=== PATIENT | female | born 1955 | race Caucasian/White ===

== ENCOUNTER → 2019-12-14 12:35 | Outpatient (CLI) | payer BC, MEDICARE, SELFPAY ==
--- NOTE | ~2019-12-14 | XR_ITS ---
EXAMINATION: HAND-DEVAUGHN ARTHRITIS 3+VIEWS DATE: 12/14/2019 13:33 INDICATION: Osteoarthritis with bilateral hand pain. TECHNIQUE: Posteroanterior, lateral, and oblique views of the left and of the right hands as well as a ballcatchers view of both hands were obtained. COMPARISON: 05/20/2018 FINDINGS: Alignment is normal at both hands. No fracture. Polyarticular osteoarthritis, moderate severity at th e right first carpometacarpal and bilateral first interphalangeal joints and mild at the left first c arpal metacarpal and multiple probably distal interphalangeal joints.. IMPRESSION: 1. Relatively symmetric polyarticular osteoarthritis of both hands, moderate at the left first carpo metacarpal and bilateral first interphalangeal joints and otherwise mild. Reviewed, dictated and finalized at location A. ESSION ATTENDANT IMPRESSION: 1. Relatively symmetric polyarticular osteoarthritis of both hands, moderate a t the left first carpometacarpal and bilateral first interphalangeal joints and otherwise mild.
--- NOTE | ~2019-12-14 | XR_ITS ---
EXAMINATION: XR foot RT standing 2V, XR foot LT standing 2V DATE: 12/14/2019 13:33 INDICATION: Osteoarthritis with nontraumatic joint pain of the bilateral feet. TECHNIQUE: 1. Standing dorsal plantar and lateral views of the left foot were obtained. 2. Standing dorsal plantar and lateral views of the right foot were obtained. COMPARISON: Left ankle MRI dated 08/03/2018 FINDINGS: Normal alignment at the right foot. Normal hindfoot alignment at the left foot with mild metatarsus a dductus and eversion of the forefoot. No fracture. Mild osteoarthritis at the left second-fourth tars al metatarsal joints. Additional minimal to mild osteoarthritis of the bilateral first metatarsophala ngeal and several interphalangeal joints. No cortical erosions. Moderate-sized bilateral Achilles and plantar calcaneal enthesophytes. Soft tissues are unremarkable with no ankle joint effusions. IMPRESSION: 1. 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 2. Additional minimal to mild osteoarthritis at the first metatarsophalangeal and several interphalan geal joints in both feet. Reviewed, dictated and finalized at location A. EDGE BANDER IMPRESSION: 1. 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 2. Additional minimal to mild osteoarthritis at the first metatarsophalangeal a nd several interphalangeal joints in both feet.
== END ==
PROVIDERS: PCP Internal Medicine; Visit Provider Internal Medicine
DX: M19.041 Primary osteoarthritis, right hand (principal); M19.042 Primary osteoarthritis, left hand; M19.071 Primary osteoarthritis, right ankle and foot; M19.072 Primary osteoarthritis, left ankle and foot
CPT/HCPCS: 73130; 73620

== ENCOUNTER → 2019-12-15 12:44 | Outpatient (CLI) | payer BC, MEDICARE, SELFPAY ==
--- NOTE | ~2019-12-15 | XR_ITS ---
EXAMINATION: XR sacroiliac joints min 3V DATE: 12/15/2019 13:08 INDICATION: Unspecified osteoarthritis, unspecified site. TECHNIQUE: 3 views of the sacroiliac joints were obtained. COMPARISON: Pelvis radiograph 12/02/2018 FINDINGS: Bone alignment is normal. No fracture. There is mild osteoarthritis of the hip joints and s acroiliac joints. There is severe degenerative disc disease at L5-S1. IMPRESSION: 1. Mild osteoarthritis of the hip joints and sacroiliac joints. No evidence of inflammatory arthropat hy. Reviewed, dictated and finalized at location A. ER PROCESS HAND IMPRESSION: 1. Mild osteoarthritis of the hip joints and sacroiliac joints. No evidence of inflammatory arthropathy.
== END ==
PROVIDERS: PCP Internal Medicine; Visit Provider Internal Medicine
DX: M16.0 Bilateral primary osteoarthritis of hip (principal)
CPT/HCPCS: 72202

== ENCOUNTER 2020-03-27 08:37 | Outpatient (CLI) | payer BC, MEDICARE, SELFPAY ==
--- NOTE | ~2020-03-27 | MM_ITS ---
EXAMINATION: MM screening faustina BI w ashvin HISTORY: Screening TECHNIQUE: Craniocaudal and mediolateral oblique 3-D tomosynthesis images were obtained and synthetic 2-D images were generated. CAD analysis was submitted and interpreted. COMPARISON: No prior mammogram is available for comparison at this institution. BREAST PARENCHYMAL COMPOSITION: There are scattered areas of fibroglandular density. FINDINGS: There are benign breast calcifications. There is no evidence of suspicious mass, calcificat ion, or architectural distortion to suggest malignancy in either breast. There has been no suspicious interval change. IMPRESSION: 1. No mammographic evidence of malignancy. 2. Recommend routine screening mammography in one year. BI-RADS Category 2: Benign finding(s). Reviewed, dictated and finalized at location A.
--- NOTE | ~2020-03-27 | DEXA_ITS ---
Bone Density Report Name: Autumn Rodriguez Age: 64 Sex: Female Ethnicity: White Date of : 1955 Indication: postmenopausal; height loss; hysterectomy; Referring Provider: WAYNE, MASON Davidson Study: Bone densitometry was performed. Exam Date: March 27, 2020 Accession number: [id number] Bone Density: Region BMD T-score Z-score Classification AP Spine (L1, L2, L3) 1.074 0.5 2.0 Normal Femoral Neck (Left) 0.749 -0.9 0.5 Normal Total Hip (Left) 1.001 0.5 1.6 Normal Total Hip Bilateral Avg 0.960 0.2 1.2 Normal Femoral Neck (Right) 0.742 -1.0 0.4 Normal Total Hip (Right) 0.917 -0.2 0.9 Normal World Health Organization criteria for BMD impression classify patients as: Normal (T-score at or above -1.0), Osteopenia (T-score between -1.0 and -2.5), or Osteoporosis (T-score at or below -2.5). Clinical Information Provided by Patient: Smokes Has the following medical conditions: Hysterectomy Patient maximum height was 64 Menopause Age: 52 No regular weight bearing exercise Drinks caffeinated beverages Onset of menses at age 17 Number of children 3 Impression: The patient has normal bone mass. The patient has risk factors, including: smoking. Discussion: BONE DENSITY IS ABOVE THE MINIMUM DESIRABLE LEVEL AT ALL SKELETAL SITES TESTED. This patient?s bone mineral density is above the minimum desirable level (T-score -1.0 or better) at all sites measured. The patient should follow a healthful lifestyle (good nutrition with adequate calcium and vitamin D, and appropriate weight-bearing exercise). Follow-Up: Consider repeating this study in 5 years or sooner if there is some new clinical indication. Reported by: RIYA on 03/27/2020 9:17:00 AM. Reviewed, dictated and finalized at location [facility]ina [facility]ENTER[facility]to[facility]
== END 2020-03-27 08:38 | disposition home or self-care (01) ==
LOC: ANHIMG 08:41
PROVIDERS: PCP Internal Medicine; Visit Provider Internal Medicine
DX: Z12.31 Encounter for screening mammogram for malignant neoplasm of breast (principal); Z13.820 Encounter for screening for osteoporosis; Z78.0 Asymptomatic menopausal state
CPT/HCPCS: 77063; 77067; 77080

== ENCOUNTER 2020-03-29 17:12 | Outpatient (CLI) | payer BC, MEDICARE, SELFPAY ==
--- NOTE | ~2020-03-29 | MR_ITS ---
EXAMINATION: MR cervical spine wo con DATE: 03/29/2020 18:16 INDICATION: Myelopathy. TECHNIQUE: Magnetic resonance imaging (MRI) of the cervical spine was performed without intravenous c ontrast. Sequences included sagittal T2-weighted FSE, sagittal STIR FSE, sagittal T1-weighted FSE, ax ial MERGE, and axial T2-weighted FSE. COMPARISON: Cervical spine MRI 03/31/2017 FINDINGS: Bone alignment is normal. Vertebral body heights are normal. There are changes of anterior fusion procedure from C5 to C7 with healed interbody bone graft and anterior plate and screws. There are changes of posterior fusion procedure at C6-C7 with lateral mass screws. Vertebral body heights a re normal. There is mildly decreased disc height at C4-C5. The spinal cord signal intensity is normal . The following disc levels are specifically discussed: C2-C3: The disc does not extend beyond the endplate margin. There is no uncovertebral joint osteoarth ritis. There is mild right and severe left facet joint osteoarthritis. There is mild left neural fora eugenie stenosis. There is no central canal stenosis. C3-C4: The disc is mildly bulging. There is mild bilateral uncovertebral joint osteoarthritis. There is severe bilateral facet joint osteoarthritis. There is mild left neural foraminal stenosis. There i s no central canal stenosis. C4-C5: The disc is bulging. There is mild bilateral uncovertebral joint osteoarthritis. There is katerina re bilateral facet joint osteoarthritis. There is mild left neural foraminal stenosis. There is mild central canal stenosis. C5-C6: There is no uncovertebral joint hypertrophy. There is no facet joint hypertrophy. There is no neural foraminal stenosis. There is no central canal stenosis. C6-C7: There is no uncovertebral joint hypertrophy. There is no facet joint hypertrophy. There is no neural foraminal stenosis. There is no central canal stenosis. C7-T1: The disc does not extend beyond the endplate margin. There is no uncovertebral joint osteoarth ritis. There is severe right facet joint osteoarthritis. There is no neural foraminal stenosis. There is no central canal stenosis. IMPRESSION: 1. Mild cervical spondylosis, stable from 03/31/2017. 2. Anterior fusion procedure from C5 to C7. Posterior fusion procedure at C6-7 C7. Reviewed, dictated and finalized at location A.
== END 2020-03-29 17:13 | disposition home or self-care (01) ==
LOC: ANHIMG 17:13
PROVIDERS: PCP Internal Medicine; Visit Provider Psychiatry & Neurology Neurology
DX: G95.9 Disease of spinal cord, unspecified (principal); Z98.1 Arthrodesis status; M47.892 Other spondylosis, cervical region
CPT/HCPCS: 72141

== ENCOUNTER 2021-07-31 13:07 | Outpatient (CLI) | payer MEDICARE, SELFPAY ==
--- NOTE | ~2021-07-31 | MR_ITS ---
EXAMINATION: MR hand LT wo/w con, MR hand RT wo/w con DATE: 07/31/2021 16:56 INDICATION: Rheumatoid arthritis with out rheumatoid factor presenting with chronic bilateral hand pa in TECHNIQUE: 1. Magnetic resonance imaging (MRI) of the left hand was performed without and with 20 mL Multihance intravenous contrast. Sequences included axial, sagittal and coronal T1-weighted FSE and T2-weighted FS FSE, axial T1-weighted FS FSE and postcontrast axial and coronal T1-weighted FS FSE . 2. MRI of the right hand was performed without and with 15 mL Multihance intravenous contrast. Sequen ronal included axial, sagittal and coronal T1-weighted FSE and T2-weighted FS FSE, axial T1-weighted FS FSE and postcontrast axial and coronal T1-weighted FS FSE . COMPARISON: None FINDINGS: Left hand: Bone alignment is normal. No fracture. Moderate osteoarthritis at the first carpometacarpal joint wit h T2 hyperintense but nonenhancing subarticular cyst at the trapezium. Additional moderate osteoarthr itis at the first interphalangeal joint with prominent marginal osteophytes at the dorsal head of the first proximal phalanx. There is enhancing erosion arising at the ulnar side of the head of the firs t metacarpal. Otherwise normal marrow signal throughout the remainder of the left hand. No joint effu sions. Mild enhancing synovitis at the triscaphe and first carpal metacarpal joints.. The collateral ligament complex at the metacarpophalangeal and interphalangeal joints appear normal. The flexor and extensor tendons of the hand appear normal. Postoperative change of carpal tunnel release including a sagittally oriented defect at the central aspect of the flexor retinaculum. Intrinsic musculature of the hand is normal. Right hand: Bone alignment is normal. No fracture. Moderate osteoarthritis at the right first interphalangeal cherrie nt and mild osteoarthritis at the triscaphe, first carpometacarpal joint. There are T2 hyperintense n onenhancing erosions at the ulnar side of the proximal pole of the scaphoid at the palmar aspect of t he distal pole. Additional T2 hyperintense enhancing erosions at the ulnar head of the first metacarp al at the radial side of the head of the second metacarpal and at the head of the first metacarpal. T here is mild enhancing synovitis about the triscaphe, first carpometacarpal and first interphalangeal joints. No joint effusions. The collateral ligament complexes at the metacarpophalangeal and interph alangeal joints are normal. The flexor and extensor tendons of the right hand are normal. Intrinsic m usculature of the hand is normal. IMPRESSION: 1. A few scattered small enhancing erosions at the bilateral hands which would be consistent with pro vided history of rheumatoid or other inflammatory or crystalline arthropathy. 2. Mild to moderate polyarticular osteoarthritis at the bilateral thumbs and radial aspect of the car pi. Additional mild osteoarthritis at multiple bilateral interphalangeal joints seen on prior radiogr aphs is more difficult to appreciate on MRI. Reviewed, dictated and finalized at location A. IMPRESSION: 1. A few scattered small enhancing erosions at the bilateral hands which would be consistent with provided history of rheumatoid or other inflammatory or zoe talline arthropathy. 2. Mild to moderate polyarticular osteoarthritis at the bilateral thumbs and ra dial aspect of the carpi. Additional mild osteoarthritis at multiple bilateral interphalangeal joints seen on prior radiographs is more difficult to appreciat e on MRI. IMPRESSION: 1. A few scattered small enhancing erosions at the bilateral hands which would be consistent with provided history of rheumatoid or other inflammatory or zoe jonh
[2021-07-31 13:50] LABS: Estimated Glomerular Filt Rate > 60
== END 2021-07-31 13:08 ==
PROVIDERS: PCP Internal Medicine; Visit Provider Internal Medicine
DX: M06.09 Rheumatoid arthritis without rheumatoid factor, multiple sites (principal); M19.041 Primary osteoarthritis, right hand; M19.042 Primary osteoarthritis, left hand
CPT/HCPCS: 73220; A9577

== ENCOUNTER → 2021-08-15 15:43 | Outpatient (CLI) | payer MEDICARE, SELFPAY ==
--- NOTE | ~2021-08-15 | MM_ITS ---
EXAMINATION: MM screening faustina BI w ashvin HISTORY: Screening mammogram TECHNIQUE: Craniocaudal and mediolateral oblique 3-D tomosynthesis images were obtained and synthetic 2-D images were generated. CAD analysis was submitted and interpreted. COMPARISON: 03/27/2020, 03/23/2019, 03/2018 bilateral screening mammogram examinations BREAST PARENCHYMAL COMPOSITION: There are scattered areas of fibroglandular density. FINDINGS: There is no evidence of suspicious mass, calcification, or architectural distortion to sugg est malignancy in either breast. There has been no suspicious interval change. IMPRESSION: 1. No mammographic evidence of malignancy. 2. Recommend routine screening mammography in one year. BI-RADS Category 1: Negative Reviewed, dictated and finalized at location A.
== END ==
PROVIDERS: PCP Internal Medicine; Visit Provider Internal Medicine
DX: Z12.31 Encounter for screening mammogram for malignant neoplasm of breast (principal)
CPT/HCPCS: 77063; 77067

== ENCOUNTER → 2022-01-08 12:53 | Outpatient (CLI) | payer MEDICARE, SELFPAY ==
--- NOTE | ~2022-01-08 | CT_ITS ---
EXAMINATION: CT abdomen pelvis wo con EXAM DATE: 01/08/2022 13:11 INDICATION: Left upper quadrant pain, soft tissue abdominal mass. Appendectomy, hysterectomy. Hyperte nsion. TECHNIQUE: Spiral CT of the abdomen and pelvis was performed without contrast. Axial, coronal and s agittal images of the abdomen and pelvis were reviewed. The dose-length product (DLP) for this exami nation was 991.28 mGy-cm. The exposure was tailored according to patient size (auto mA exposure cont rol), and iterative reconstruction (ASIR) was used as additional dose reduction technique. There is no prior study for comparison. FINDINGS: The liver, spleen, adrenal glands and pancreas are unremarkable. There are cholecystectomy clips. There is no nephrolithiasis or hydronephrosis. There is 4.3 cm right renal cyst. Smaller lef t renal cyst. The uterus is not identified and has likely been surgically resected. The bladder is u nremarkable. There is no retroperitoneal or pelvic lymphadenopathy. There is mild to moderate scat tered arteriosclerotic disease. The appendix is not positively visualized. There is no pericecal inflammatory change to suggest appe ndicitis. There is moderate to severe sigmoid predominant colonic diverticulosis. There is no adjace nt inflammatory change to suggest diverticulitis. The stomach and small bowel are unremarkable. The re is expected amount of colonic stool. No free intraperitoneal gas. The heart is normal in size. There are no pericardial or pleural effusions. The lung bases are unremarkable. There are no oste oblastic or osteolytic lesions identified. IMPRESSION: 1. No abdominal mass or acute intra-abdominal findings. 2. Colonic diverticulosis. Reviewed, dictated and finalized at location G.
== END ==
PROVIDERS: PCP Internal Medicine; Visit Provider Internal Medicine
DX: R19.00 Intra-abdominal and pelvic swelling, mass and lump, unspecified site (principal); K57.30 Diverticulosis of large intestine without perforation or abscess without bleeding; K76.89 Other specified diseases of liver; I70.90 Unspecified atherosclerosis
CPT/HCPCS: 74176

== ENCOUNTER 2022-05-05 10:41 | Emergency (ER) | payer MEDICARE, SELFPAY ==
[2022-05-05] VITALS (18 sets, daily range): BP systolic 118–170; BP diastolic 57–82; PULSE 78–83; RESP 16; TEMP 37; O2SAT 91–100
--- NOTE | ~2022-05-05 | CT_ITS ---
EXAMINATION: CT abdomen pelvis w con DATE: 05/05/2022 12:48 INDICATION: Left lower quadrant abdominal pain radiating across lower abdomen. Nausea. Dysuria. (History of appendectomy, cholecystectomy, bladder lift) TECHNIQUE: Computed tomography (CT) of the abdomen and pelvis was performed with 100 CC Omnipaque 300 intravenous contrast. Automated exposure control and iterative reconstruction technique were employe d. Exam dose: 1337.87 mGy-cm total exam DLP. COMPARISON: 01/08/2022 CT abdomen pelvis FINDINGS: There is mild discoid atelectasis and/or scarring at the lung bases. Borderline heart size. No pericardial or pleural effusion. Status post cholecystectomy. No bile duct or pancreatic duct dilatation. No hepatic, pancreatic or splenic space-occupying mass lesion. No splenomegaly. No pancreatic calcifi cation. Normal morphology of the adrenal glands. Approximately 2 cysts of each kidney, measuring up to 4.3 cm on the right, 1.6 cm on the left. No uri nary tract calculus or hydroureteronephrosis. The urinary bladder is unremarkable. Approximately 2.3 cm left ovarian cyst. The uterus appears to be surgically absent. There is calcification but normal caliber of the abdominal aorta. No intraperitoneal or retroperitone al or pelvic mass lesion or adenopathy or ascites. There are numerous diverticula of the descending and sigmoid colon. There is thickening of the wall o f the proximal and mid sigmoid: With adjacent prominent pericolic fat stranding, consistent with unco mplicated sigmoid diverticulitis, without evidence of abscess or intraperitoneal free air. No bowel o bstruction. Degenerative change at the apophyseal joints with associated grade 1 anterolisthesis at L4-5. Severe degenerative disc disease at L5-S1. No suspicious osteolytic or osteosclerotic lesions are noted. IMPRESSION: Acute sigmoid diverticulitis; no abscess identified Diverticulosis of sigmoid and descending colon Bilateral renal cysts Approximately 2.3 cm left ovarian cyst Status post cholecystectomy Status post appendectomy Status post hysterectomy Reviewed, dictated and finalized at Location A. Reviewed, dictated and finalized at location B.
[2022-05-05 11:39] LABS: Basophils Absolute Auto 0.1 K/mm3 (0.0-0.1); Basophils Percent Auto 0.3 % (0.2-1.2); Eosinophils Absolute Auto 0.1 K/mm3 (0-0.3); Eosinophils Percent Auto 0.6 % (0-4.4); Hematocrit 36.2 % (37.0-47.0); Hemoglobin 12.8 g/dL (12.0-15.0); Immature Granulocyte Absolute 0.05 K/mm3 (0.00-0.031); Immature Granulocyte Percent A 0.3 % (0-0.5); Lymphocytes Percent Auto 14.2 % (18.3-44.2); Mean Corpuscular HGB Conc 35.4 g/dl (32-36); Mean Corpuscular Hemoglobin 32.4 pg (26-34); Mean Corpuscular Volume 91.6 fl (80-100); Mean Platelet Volume 11.5 fl (7.4-10.4); Monocytes Percent Auto 6.5 % (2.6-8.5); Neutrophils Absolute Auto 12.1 K/mm3 (1.3-6.7); Neutrophils Percent Auto 78.1 % (45.5-73.1); Platelet Count Result 230 k/mm3 (150-375); Red Blood Count 3.95 M/mm3 (4.2-5.4); Red Cell Distribution Width 13.4 % (11.5-14.5); White Blood Count 15.5 K/mm3 (4.5-10.0)
[2022-05-05 11:49] LABS: Alanine Aminotransferase 17 U/L (6-35); Albumin Level 4.3 g/dL (3.5-5.1); Alkaline Phosphatase 63 U/L (38-126); Anion Gap 9 mmol/L (8-16); Appearance Urine Clear (Clear); Aspartate Amino Transferase 18 U/L (14-36); Bilirubin Urine Negative (Negative); Bilirubin,Total 0.4 mg/dL (0.2-1.3); Blood Urea Nitrogen 11 mg/dL (7-17); Blood Urine Negative (Negative); Calcium 8.8 mg/dL (8.4-10.2); Carbon Dioxide 24 mmol/L (22-30); Chloride 105 mmol/L (98-107); Color Urine Yellow (Yellow); Estimated CRCL calculation 86 ml/min; Estimated Glomerular Filt Rate > 60; Glucose 112 mg/dL (65-110); Glucose Urine UA Negative (Negative); Ketones Urine Negative (Negative); Leukocyte Esterase Ur Negative LEU/UL (Negative); Lipase 424 U/L (23-300); Nitrate Urine Negative (Negative); Potassium 3.7 mmol/L (3.4-5.0); Protein Urine Negative (Negative); Sodium 138 mmol/L (137-145); Urobilinogen Urine 0.2 mg/dL (<2.0); pH Urine 6.5 (5.0-9.0)
[2022-05-05 11:51] LABS: Add Urine Microscopic? NO
--- NOTE | 2022-05-05 12:20 | ED.ABDPAIN ---
HPI - Abdominal Pain General Chief Complaint: Abdominal Pain Stated Complaint: Abdominal Pain Time Seen by Provider: 05/05/22 12:19 Source: patient Mode of arrival: ambulatory Limitations: no limitations History of Present Illness HPI narrative: 66 years old white female, lower abdominal pain mainly left lower quadrant started 2 days ago associated with nausea. No radiation. Patient denies any fever, chills, vomiting. History of hypertension, hyperlipidemia,, history of cholecystectomy, appendectomy and hysterectomy. Related Data Home Medications Medication Instructions Recorded Confirmed alprazolam 0.25 mg tablet 0.25 mg PO DAILY 10/27/19 11/19/21 amlodipine 10 mg tablet 10 mg PO DAILY 10/27/19 11/19/21 aspirin 81 mg tablet,delayed 81 mg PO DAILY 10/27/19 11/19/21 release (Adult Aspirin Regimen) docusate sodium [Stool Softener] PO 10/27/19 11/19/21 hydrocodone 7.5 mg-acetaminophen 1 tablet PO Q8H PRN 10/27/19 11/19/21 325 mg tablet lactobacillus combination no.8 PO 10/27/19 11/19/21 [Adult Probiotic] om 4-G-iddqy-tgb-acjjg-gqe-lip PO 10/27/19 11/19/21 [Scooba 3-6-9] simvastatin 20 mg tablet 20 mg PO DAILY 10/27/19 11/19/21 venlafaxine 75 mg capsule,extended 75 mg PO DAILY 10/27/19 11/19/21 release 24 hr furosemide 20 mg tablet 20 mg PO QAM 07/27/20 11/19/21 earnest root 325 mg-pyridoxine HCl cap PO 07/27/20 11/19/21 (vitamin B6) 25 mg capsule losartan 25 mg tablet 25 mg PO DAILY 07/27/20 11/19/21 potassium chloride 10 mEq 20 meq PO DAILY 07/27/20 11/19/21 tablet,extended release turmeric root extract 500 mg 500 mg PO DAILY 07/27/20 11/19/21 capsule baricitinib 2 mg tablet (Olumiant) 2 mg PO DAILY 10/08/21 11/19/21 Allergies Allergy/AdvReac Type Severity Reaction Status Date / Time No Known Allergies Allergy Mild Verified 05/05/22 11:10 Review of Systems Review of Systems: All systems reviewed & are unremarkable except as noted in HPI and below PMFSH Past Medical History Medical History Allergies Anxiety Arthritis Bilateral hand pain Depression Generalized osteoarthritis of multiple sites HTN (hypertension) Neuropathy of left foot Seronegative rheumatoid arthritis of multiple sites Surgical History Surgical History H/O foot surgery H/O neck surgery H/O tubal ligation H/O: hysterectomy History of appendectomy History of bladder surgery History of carpal tunnel release Hx of cholecystectomy Family History Family History Mother Breast cancer Bone cancer Social History Social History Smoking packs per day: 1 Smoking cigarettes per day: 20.0 Years smoked: 45 Smoking pack-years: 45.00 Smoking status: Current every day smoker Alcohol intake: current Alcohol use details: twice a year maybe Exam Narrative: General appearance: Well-developed, well-nourished Skin: Normal color Head: Normocephalic, nontraumatic Eyes: Clear conjunctiva ENT: Oropharynx normal, ears normal, nose normal Neck: Supple, nontender Chest and respiratory: Airway patent, no respiratory distress, no accessory muscle use Heart: Regular rate/rhythm Abdomen: Soft, diffuse tenderness lower abdomen bilaterally mainly left lower quadrant. No organomegaly, quiet bowel sounds Vascular: Normal peripheral pulses, normal capillary refill. Musculoskeletal: Normal range of motion, nontender back Neurologic: Alert and oriented ?3, REVENUE STAMP CLERK is normal as tested, no gross motor deficit Course Course Emergency Course: Sylvie
[2022-05-05] MEDS: SODIUM CHLORIDE 0.9% IV 1,000 ML 999 ML IV CONT (12:35)
[2022-05-05] MEDS: ONDANSETRON INJ 4 MG/2 ML VIAL IV PUSH (12:36)
[2022-05-05] MEDS: MORPHINE SULFATE (*CRX) 4 MG/ML INJ IV PUSH (12:36)
[2022-05-05] MEDS: metroNIDAZOLE 250 MG TABLET 500 MG PO (13:55)
[2022-05-05] MEDS: levoFLOXacin 750 MG TABLET PO (14:28)
== END 2022-05-05 14:43 | disposition home or self-care (01) ==
PROVIDERS: Physician Assistant; Emergency Provider Emergency Medicine; PCP Internal Medicine
DX: K57.32 Diverticulitis of large intestine without perforation or abscess without bleeding (principal); I10 Essential (primary) hypertension; G62.9 Polyneuropathy, unspecified; M06.09 Rheumatoid arthritis without rheumatoid factor, multiple sites; M19.90 Unspecified osteoarthritis, unspecified site; F41.9 Anxiety disorder, unspecified; F32.A Depression, unspecified; F17.210 Nicotine dependence, cigarettes, uncomplicated; N83.202 Unspecified ovarian cyst, left side; N28.1 Cyst of kidney, acquired; K57.30 Diverticulosis of large intestine without perforation or abscess without bleeding
CPT/HCPCS: 36415; 74177; 80053; 81003; 83690; 85025; 96361; 96374; 96375; 99284; A9270; J2270; J2405; J7030; Q9967

== ENCOUNTER → 2022-05-12 14:25 | Outpatient (CLI) | payer MEDICARE, SELFPAY ==
--- NOTE | ~2022-05-12 | CT_ITS ---
EXAMINATION: CT lung screening DATE: 05/12/2022 15:17 INDICATION: Personal history of tobacco dependence TECHNIQUE: Computed tomography (CT) of the chest was performed without intravenous contrast. The dose -length product was 369.61 mGy-cm. Automated exposure control and iterative reconstruction technique were employed. COMPARISON: Chest x-ray dated 01/27/2019 FINDINGS: Heart size normal. No significant pleural or pericardial effusion. There is emphysema. No e ndobronchial lesions. No pneumothorax. There is lingular and lower lobe atelectasis. No pulmonary nod ules are seen. No endobronchial lesions. Mild thoracic spondylosis. No acute osseous abnormality. IMPRESSION: 1. Lung-RADS category 1: Negative. Continue annual screening with noncontrast low-dose chest CT in 12 months. Reviewed, dictated and finalized at location A. IMPRESSION: 1. Lung-RADS category 1: Negative. Continue annual screening with noncontrast l ow-dose chest CT in 12 months.
== END ==
PROVIDERS: PCP Internal Medicine; Visit Provider Internal Medicine
DX: Z12.2 Encounter for screening for malignant neoplasm of respiratory organs (principal); Z87.891 Personal history of nicotine dependence
CPT/HCPCS: 71271

== ENCOUNTER 2022-06-16 00:45 | Day surgery (SDC) | payer MEDICARE, SELFPAY ==
[2022-05-30 14:31] VITALS: BMI 41.6
--- NOTE | 2022-06-13 17:36 | PM.HPGS ---
History of Present Illness History of Present Illness Consent: Risks, benefits, and alternatives have been discussed and questions answered. Patient agrees to proceed with procedure. Chief complaint: hx of colon polyps Narrative: Autumn Rodriguez is a 66 year old female Referred for colon cancer screening. She had a tubular adenoma removed about 6 years ago.she recently had an attack of diverticulitis, treated with antibiotics last month. Review of Systems Review of Systems: All systems reviewed & are unremarkable except as noted in HPI and below PMFSH Past Medical History Medical History Allergies Anxiety Arthritis Asthma Bilateral hand pain Depression Generalized osteoarthritis of multiple sites HTN (hypertension) Hyperlipidemia Morbid obesity with BMI of 40.0-44.9, adult Neuropathy of left foot RICKIE (obstructive sleep apnea) PVD (peripheral vascular disease) Seronegative rheumatoid arthritis of multiple sites Smoker Surgical History Surgical History H/O foot surgery H/O neck surgery H/O tubal ligation H/O: hysterectomy History of appendectomy History of bladder surgery History of carpal tunnel release Hx of cholecystectomy Family History Family History Mother Breast cancer Bone cancer Social History Social History Smoking packs per day: 1 Smoking cigarettes per day: 20.0 Years smoked: 49 Smoking pack-years: 49.00 Smoking status: Current every day smoker Tobacco type: cigarettes Alcohol intake: current Alcohol use details: 6 drinks per year Living arrangements: with family Spiritual care concerns: No Meds Home Medications and Allergies Home Medications Medication Instructions Recorded Confirmed Type alprazolam 0.25 mg tablet 0.25 mg PO DAILY 10/27/19 06/16/22 History amlodipine 10 mg tablet 10 mg PO DAILY 10/27/19 06/16/22 History aspirin 81 mg tablet,delayed 81 mg PO DAILY 10/27/19 06/16/22 History release (Adult Aspirin Regimen) docusate sodium [Stool Softener] 1 cap PO DAILY 10/27/19 06/16/22 History simvastatin 20 mg tablet 20 mg PO DAILY 10/27/19 06/16/22 History furosemide 20 mg tablet 20 mg PO QAM 07/27/20 06/16/22 History earnest root 325 mg-pyridoxine HCl 1 cap PO DAILY 07/27/20 06/16/22 History (vitamin B6) 25 mg capsule losartan 25 mg tablet 25 mg PO DAILY 07/27/20 06/16/22 History potassium chloride 10 mEq 20 meq PO DAILY 07/27/20 06/16/22 History tablet,extended release baricitinib 2 mg tablet (Olumiant) 2 mg PO DAILY 10/08/21 06/16/22 History gabapentin 300 mg capsule See Rx Instructions .Route 05/19/22 06/16/22 Rx .COMPLEX #300 caps Glucosamine 1500 Complex 1 tablet PO DAILY 05/30/22 06/16/22 History venlafaxine 150 mg 150 mg PO DAILY 05/30/22 06/16/22 History capsule,extended release 24 hr (Effexor XR) hydroxychloroquine 200 mg tablet See Rx Instructions .Route 06/06/22 06/16/22 Rx .COMPLEX #200 tabs Allergies Allergy/AdvReac Type Severity Reaction Status Date / Time naproxen AdvReac Swelling Verified 06/16/22 09:40 Exam Resp: Auscultation: clear to auscultation bilaterally Cardio: Rate: regular rate Rhythm: regular rhythm GI: GI Palp: Yes Soft to palpation and No Tenderness to palpation present (GI) Assessment and Plan Assessment and plan (1) Colon cancer screening: Code(s): Z12.11 - Encounter for screening for malignant neoplasm of colon Status: Acute Assessment and Plan: Colonoscopy with possible biopsy or polypectomy or cautery or injection of substances.
--- NOTE | 2022-06-16 09:39 | WPDANESEPPF ---
Anes - Initial Pre Proc Eval Procedure: Operation Date: 06/16/22 10:30 Proposed Procedures p Screening Colonoscopy - Carrillo Gill MD Date/Time: 06/16/22 09:39 Surgeon: Carrillo Gill MD Pre Op Diagnosis: hx of colon polyps Patient Data Age: 66 Gender: F Height: 1.63 m Weight: 110 kg Allergies Allergy/AdvReac Type Severity Reaction Status Date / Time naproxen AdvReac Swelling Verified 06/16/22 09:40 Home Medications Medication Instructions Recorded Confirmed Type alprazolam 0.25 mg tablet 0.25 mg PO DAILY 10/27/19 05/30/22 History amlodipine 10 mg tablet 10 mg PO DAILY 10/27/19 05/30/22 History aspirin 81 mg tablet,delayed 81 mg PO DAILY 10/27/19 05/30/22 History release (Adult Aspirin Regimen) docusate sodium [Stool Softener] 1 cap PO DAILY 10/27/19 05/30/22 History simvastatin 20 mg tablet 20 mg PO DAILY 10/27/19 05/30/22 History furosemide 20 mg tablet 20 mg PO QAM 07/27/20 05/30/22 History earnest root 325 mg-pyridoxine HCl 1 cap PO DAILY 07/27/20 05/30/22 History (vitamin B6) 25 mg capsule losartan 25 mg tablet 25 mg PO DAILY 07/27/20 05/30/22 History potassium chloride 10 mEq 20 meq PO DAILY 07/27/20 05/30/22 History tablet,extended release baricitinib 2 mg tablet (Olumiant) 2 mg PO DAILY 10/08/21 05/30/22 History gabapentin 300 mg capsule See Rx Instructions .Route 05/19/22 05/30/22 Rx .COMPLEX #300 caps Glucosamine 1500 Complex 1 tablet PO DAILY 05/30/22 05/30/22 History venlafaxine 150 mg 150 mg PO DAILY 05/30/22 05/30/22 History capsule,extended release 24 hr hydroxychloroquine 200 mg tablet See Rx Instructions .Route 06/06/22 Rx .COMPLEX #200 tabs Patient hx anesthesia problems: none Family hx anesthesia problems: none Results Review: All pre-operative results and documents have been reviewed as part of the pre-operative evaluation. PMFSH Past Medical History Medical History Allergies Anxiety Arthritis Asthma Bilateral hand pain Depression Generalized osteoarthritis of multiple sites HTN (hypertension) Hyperlipidemia Morbid obesity with BMI of 40.0-44.9, adult Neuropathy of left foot RICKIE (obstructive sleep apnea) PVD (peripheral vascular disease) Seronegative rheumatoid arthritis of multiple sites Smoker Surgical History Surgical History H/O foot surgery H/O neck surgery H/O tubal ligation H/O: hysterectomy History of appendectomy History of bladder surgery History of carpal tunnel release Hx of cholecystectomy Family History Family History Mother Breast cancer Bone cancer Social History Social History Smoking packs per day: 1 Smoking cigarettes per day: 20.0 Years smoked: 49 Smoking pack-years: 49.00 Smoking status: Current every day smoker Tobacco type: cigarettes Alcohol intake: current Alcohol use details: 6 drinks per year Living arrangements: with family Spiritual care concerns: No Anes - Eval Final PreProcedure Day of Procedure 06/16/22 09:39 Patient weight: morbidly obese Heart: regular rate and rhythm Lungs: clear to auscultation and normal air movement Airway: Mallampati scale class II Neurological: alert and oriented Last oral intake: >/= 8 hours ASA classification: III Emergent: no Anesthetic plan: proceed Anesthesia type and monitoring: general GIVS Results Review: All pre-operative results and documents have been reviewed as part of the pre-operative evaluation. Informed Consent: The patient's anesthetic plan and its attendant risks and benefits were discussed with the patient/family/POA. Questions were solicited and answers provided to the satisfaction of the patient/family/POA.
[2022-06-16] MEDS: LACTATED RINGERS 1,000 ML 150 ML IV CONT (09:50)
[2022-06-16 10:32] VITALS: BP 120/70; PULSE 68; RESP 20; O2SAT 98
[2022-06-16 10:42] VITALS: BP 116/71; PULSE 64; RESP 22; O2SAT 99
[2022-06-16 10:52] VITALS: BP 128/68; PULSE 60; RESP 18; O2SAT 97
== END 2022-06-16 10:59 | disposition home or self-care (01) ==
PROVIDERS: PCP Internal Medicine; Visit Provider Internal Medicine Gastroenterology
PROC: 0DJD8ZZ Inspection of Lower Intestinal Tract, Via Natural or Artificial Opening Endoscopic (ICD-10-PCS; CPT 45378; principal; 2022-06-16 10:30)
DX: Z12.11 Encounter for screening for malignant neoplasm of colon (principal); Z86.010 Personal history of colon polyps; K57.30 Diverticulosis of large intestine without perforation or abscess without bleeding; Z79.82 Long term (current) use of aspirin; F41.9 Anxiety disorder, unspecified; M19.90 Unspecified osteoarthritis, unspecified site; J45.909 Unspecified asthma, uncomplicated; I10 Essential (primary) hypertension; G47.33 Obstructive sleep apnea (adult) (pediatric); E78.5 Hyperlipidemia, unspecified; I73.9 Peripheral vascular disease, unspecified; G62.9 Polyneuropathy, unspecified; F17.210 Nicotine dependence, cigarettes, uncomplicated; E66.01 Morbid (severe) obesity due to excess calories; Z68.41 Body mass index [BMI] 40.0-44.9, adult
CPT/HCPCS: G0105; J2704; J7120

== ENCOUNTER → 2022-07-21 09:44 | Outpatient (CLI) | payer MEDICARE, SELFPAY ==
--- NOTE | ~2022-07-21 | DEXA_ITS ---
Bone Density Report Name: MARY ANN HALL Age: 66 Sex: Female Ethnicity: White Date of : 1955 Indication: postmenopausal; screening for osteoporosis; history of glucocorticoids; asthma or emphysema; hysterectomy; rheumatoid arthritis; Referring Provider: Dat Elder Study: Bone densitometry was performed. Exam Date: July 21, 2022 Accession number: [id number] Bone Density: Region BMD T-score Z-score Classification AP Spine (L1-L4) 1.048 0.0 1.7 Normal Femoral Neck (Left) 0.768 -0.7 0.8 Normal Total Hip (Left) 0.947 0.0 1.2 Normal Femoral Neck (Right) 0.706 -1.3 0.2 Osteopenia Total Hip (Right) 0.879 -0.5 0.7 Normal Total Hip Mean 0.913 -0.3 1.0 Normal World Health Organization criteria for BMD impression classify patients as: Normal (T-score at or above -1.0), Osteopenia (T-score between -1.0 and -2.5), or Osteoporosis (T-score at or below -2.5). 10-year Fracture Risk(1): Major Osteoporotic Fracture 15% Hip Fracture 2.6% Reported Risk Factors: [place] (), Neck BMD=0.706, BMI=42.5, smoking, glucocorticoids, rheumatoid arthritis (1) FRAX(R) Version 3.08. Fracture probability calculated for an untreated patient. Fracture probability may be lower if the patient has received treatment. Previous Exams: Region Exam Age BMD T-score BMD Change BMD Change Date g/cm2 vs Baseline vs Previous AP Spine(L1-L4) 07/21/2022 66 1.048 0.0 -0.069 -0.069 03/18/2016 60 1.116 0.6 Total Hip(Left) 07/21/2022 66 0.947 0.0 0.024 0.024 03/18/2016 60 0.923 -0.2 Total Hip(Right) 07/21/2022 66 0.879 -0.5 -0.060 -0.060 03/18/2016 60 0.938 0.0 *Denotes significance at 95% confidence level, LSC for AP Spine = 0.022 g/cm2, LSC for Total Hip = 0.027 g/cm2 Clinical Information Provided by Patient: Smokes Has taken Glucocorticoids Has rheumatoid arthritis Has the following medical conditions: Asthma or Emphysema, Hysterectomy Patient maximum height was 64 Menopause Age: 48 No regular weight bearing exercise Drinks caffeinated beverages Onset of menses at age 17 Number of children 3 Impression: The patient has low bone mass, based on the Right Femoral Neck T-score. The patient has an estimated ten-year risk of hip fracture of 2.6% and an estimated ten-year risk of major fracture of 15%, based on the WHO FRAX algorithm. The patient has risk factors, including:
== END ==
PROVIDERS: PCP Internal Medicine; Visit Provider Internal Medicine
DX: M81.0 Age-related osteoporosis without current pathological fracture (principal); M85.851 Other specified disorders of bone density and structure, right thigh; M06.09 Rheumatoid arthritis without rheumatoid factor, multiple sites; M15.9 Polyosteoarthritis, unspecified
CPT/HCPCS: 77080

== ENCOUNTER → 2022-11-07 10:27 | Outpatient (CLI) | payer MEDICARE, SELFPAY ==
--- NOTE | ~2022-11-07 | MR_ITS ---
MRI of the lumbar spine Clinical History: Neuropathy Technique: Axial T2-weighted images, and sagittal T1-weighted, T2-weighted, and T2 fat-sat images wer e acquired. Findings: No fracture identified. Minimal grade 1 anterolisthesis of L4 over L5 noted. No bone marrow signal abnormality seen. At L1-L2, there is no disc bulge or herniation. No spinal canal stenosis or neural foraminal narrowin g. At L2-L3, there is no disc bulge or herniation. There is mild facet arthropathy. No spinal canal sten osis or neural foraminal narrowing. At L3-L4, there is no disc bulge or herniation. There is facet arthropathy contributing to minimal th ecal sac compression. Bilateral neural foramina are preserved. At L4-L5, disc bulge and facet arthropathy contribute to moderate to severe thecal sac compression. T here is moderate right neural foraminal narrowing and mild left neural foraminal narrowing. At L5-S1, there is minimal disc bulge with facet arthropathy. No spinal canal stenosis or neural fora eugenie narrowing. Paravertebral soft tissues are unremarkable. Impression: Multifactorial moderate to severe thecal sac compression at L4-L5, with bilateral neural foraminal na rrowing. Additional mild degenerative changes, as detailed above. Reviewed, dictated and finalized at location . [employer] Impression: Multifactorial moderate to severe thecal sac compression at L4-L5, with bilater al neural foraminal narrowing. Additional mild degenerative changes, as detailed above.
== END ==
PROVIDERS: PCP Internal Medicine; Visit Provider Psychiatry & Neurology Neurology
DX: G62.9 Polyneuropathy, unspecified (principal)
CPT/HCPCS: 72148

== ENCOUNTER → 2022-11-18 13:01 | Outpatient (CLI) | payer MEDICARE, SELFPAY ==
--- NOTE | ~2022-11-18 | MM_ITS ---
EXAMINATION: MM screening faustina BI w ashvin HISTORY: Screening TECHNIQUE: Craniocaudal and mediolateral oblique 3-D tomosynthesis images were obtained and synthetic 2-D images were generated. CAD analysis was submitted and interpreted. COMPARISON: Comparison to multiple prior studies sequentially, with oldest reviewed study dated 03/18. BREAST PARENCHYMAL COMPOSITION: Breast composed of scattered areas of fibroglandular density FINDINGS: There is no evidence of suspicious mass, calcification, or architectural distortion to sugg est malignancy in either breast. There has been no suspicious interval change. IMPRESSION: 1. No mammographic evidence of malignancy. 2. Recommend routine screening mammography in one year. BI-RADS Category 1: Negative Reviewed, dictated and finalized at location A. ICER
== END ==
PROVIDERS: PCP Internal Medicine; Visit Provider Internal Medicine
DX: Z12.31 Encounter for screening mammogram for malignant neoplasm of breast (principal)
CPT/HCPCS: 77063; 77067

== ENCOUNTER 2022-12-25 09:52 | Outpatient (CLI) | payer MEDICARE, SELFPAY ==
--- NOTE | 2022-12-25 11:30 | NEURO_ITS ---
Impression: # Complains of left foot pain. # Normal nerve conduction study. # Normal needle/EMG exam. # Clinical correlation recommended. Motor Nerve Conduction Lower Extremities Peroneal Nerve Conduction Velocity (m/sec) Terminal Latency (msec) Response Voltage(mV) Popliteal space-Ankle Ankle Extensor Dig Brevis Popliteal space Ankle Right 51 4.3 2 3 Left 53 4.3 1 2 Tibial Nerve Conduction Velocity (m/sec) Terminal Latency (msec) Response Voltage(mV) Popliteal space-Ankle Ankle-Extensor Dig Brevis Popliteal space Ankle Right 48 4.1 2 2 Left 48 4.4 2 2 F-waves Peroneal Nerve (ms) Tibial Nerve (ms) Right 54.5 53.9 Left 53.2 53.6 Sensory Nerve Conduction Lower Extremities Sural Nerve Stimulation Terminal Latency (msec) Ankle Response Voltage (uV) Ankle Response Velocity (m/sec) Right 3.7 13 43 Left 3.5 8 46 Superficial Peroneal Nerve Stimulation Terminal Latency (msec) Ankle Response Voltage (uV) Ankle Response Velocity (m/sec) Right 3.3 12 48 Left 3.3 11 48 Right Lateral Plantar=3.9ms Left Lateral Plantar=4.2ms Left Right Muscles Examined Fibrillation Fasciculation Scarcity Voltage Duration Left Right Left Right Left Right Left Right Left Right X X Ant Tibialis X X Gastroc X X Fibularis Long X X Flex Dig Long X X Ext Dig Brev Abd Hallucis Quadriceps Paraspinals MTDD
== END 2022-12-25 09:53 | disposition home or self-care (01) ==
LOC: ANHNEURO 09:53
PROVIDERS: PCP Internal Medicine; Visit Provider Psychiatry & Neurology Neurology
DX: G62.9 Polyneuropathy, unspecified (principal)
CPT/HCPCS: 95886; 95911

== ENCOUNTER → 2023-05-13 10:17 | Outpatient (CLI) | payer MEDICARE, SELFPAY ==
--- NOTE | ~2023-05-13 | CT_ITS ---
CT Scan of the Chest without Contrast: Clinical Indication: Lung cancer screening, personal history of nicotine dependence Technique: Contiguous sections were acquired throughout the chest without intravenous contrast. Dose reduction technique was used on this scan by utilizing automated exposure control and iterative recon struction technique. The dose-length product (DLP) was 380.22 mGy-cm. COMPARISON: 05/12/2022 Findings: There is no evidence of any significant mediastinal, hilar or axillary lymphadenopathy. There are ath erosclerotic calcifications of the aorta. There is no evidence of pleural or pericardial effusion. The lungs are clear. No pulmonary nodules or infiltrates are noted. Images through the upper abdomen reveal no abnormalities. Impression: Lung RADS 1: Negative. 12 month follow-up screening CT advised. Reviewed, dictated and finalized at [facility]. Impression: Lung RADS 1: Negative. 12 month follow-up screening CT advised.
== END ==
PROVIDERS: PCP Internal Medicine; Visit Provider Internal Medicine
DX: Z12.2 Encounter for screening for malignant neoplasm of respiratory organs (principal); Z87.891 Personal history of nicotine dependence
CPT/HCPCS: 71271

== ENCOUNTER 2024-06-03 12:42 | Outpatient (CLI) | payer MEDICARE, SELFPAY ==
--- NOTE | ~2024-06-03 | CT_ITS ---
EXAMINATION: CT lung screening DATE: 06/03/2024 12:54 INDICATION: NICOTINE DEPENDENCE TECHNIQUE: Computed tomography (CT) of the chest was performed without intravenous contrast. Addition al 3D reconstructions utilizing coronal maximum intensity projection (MIP) were performed. Automated exposure control and iterative reconstruction technique were employed. The dose-length product was 37 0.29 mGy-cm. COMPARISON: 05/13/2023 and 05/12/2022 FINDINGS: Mild emphysema. Mild discoid atelectasis at the lingula. No suspicious pulmonary nodules, pneumonia, pulmonary edema or pleural effusion. Heart size is normal. Unchanged minimal pericardial effusion. Th oracic aorta is normal in caliber. No pathologically enlarged thoracic lymphadenopathy. Cholecystecto my clips the gallbladder fossa. Partially visualized at least 1.1 cm right renal cyst. Partially visu alized instrumented anterior and posterior spinal fusion at the lower cervical spine. IMPRESSION: 1. Lung-RADS category 1: Negative. Continue annual screening with noncontrast low-dose chest CT in 12 months. Reviewed, dictated and finalized at location A. IMPRESSION: 1. Lung-RADS category 1: Negative. Continue annual screening with noncontrast l ow-dose chest CT in 12 months.
== END 2024-06-03 12:43 ==
LOC: MICIMG 12:43
PROVIDERS: PCP Internal Medicine; Visit Provider Internal Medicine
DX: Z12.2 Encounter for screening for malignant neoplasm of respiratory organs (principal); Z87.891 Personal history of nicotine dependence
CPT/HCPCS: 71271

== ENCOUNTER 2024-08-16 14:12 | Outpatient (CLI) | payer MEDICARE, SELFPAY ==
--- NOTE | ~2024-08-16 | MM_ITS ---
EXAMINATION: MM screening faustina BI w ashvin HISTORY: Screening mammogram, family history of breast cancer in her mother. TECHNIQUE: Craniocaudal and mediolateral oblique 3-D tomosynthesis images were obtained and synthetic 2-D images were generated. CAD analysis was submitted and interpreted. COMPARISON: 11/18/2022, 08/07/2021, 03/27/2020 BREAST PARENCHYMAL COMPOSITION:Not Dense. The breasts are almost entirely fatty FINDINGS: No suspicious mass, calcification, or architectural distortion are identified in either maral ast to suggest malignancy. There has been no suspicious interval change. IMPRESSION: No mammographic evidence of malignancy. Recommend routine screening mammography in one year. BI-RADS Category 1: Negative Reviewed, dictated and finalized at location .
== END 2024-08-16 14:13 | disposition home or self-care (01) ==
LOC: MICIMG 14:12
PROVIDERS: PCP Internal Medicine; Visit Provider Internal Medicine
DX: Z12.31 Encounter for screening mammogram for malignant neoplasm of breast (principal)
CPT/HCPCS: 77063; 77067

== ENCOUNTER 2024-08-16 14:15 | Outpatient (CLI) | payer MEDICARE, SELFPAY ==
--- NOTE | ~2024-08-16 | XR_ITS ---
Left Knee Technique: AP and lateral views were obtained. Clinical History: Pain Findings: No fracture or dislocation is seen. Osseous alignment is anatomic. Minimal degenerative spu rring noted. Soft tissues are unremarkable. No joint effusion is seen. Impression: Minimal degenerative change, as above. Reviewed, dictated and finalized at location . Impression: Minimal degenerative change, as above.
--- NOTE | ~2024-08-16 | XR_ITS ---
Right Knee Technique: AP and lateral views were obtained. Clinical History: Pain Findings: No fracture or dislocation is seen. Mild spurring noted. Soft tissues are unremarkable. No joint effusion is seen. Impression: Mild degenerative spurring. Reviewed, dictated and finalized at location M. Impression: Mild degenerative spurring.
--- NOTE | ~2024-08-16 | XR_ITS ---
AP and lateral views of the bilateral hips Clinical history: Pain Findings: No acute fracture or dislocation is seen. Osseous alignment is anatomic. Bilateral hip and SI joint spaces are preserved. Soft tissues are unremarkable. Impression: No significant abnormality is seen. Reviewed, dictated and finalized at location . Impression: No significant abnormality is seen.
--- NOTE | ~2024-08-16 | XR_ITS ---
EXAM: XR hand LT 2V, XR wrist RT 2V, XR wrist LT 2V, XR hand RT 2V DATE: 08/16/2024 15:11 HISTORY: Mult joint pain . COMPARISON: None available. FINDINGS: Normal mineralization. No fracture or dislocation. No lytic or blastic lesion. Scattered a rthritic changes, typical of osteoarthritis, most notably in the bilateral first interphalangeal join ts and left first CMC joint. Subcortical cyst in the right scaphoid. No erosion or periosteal change. Soft tissues within normal limits. 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 Reviewed, dictated and finalized at location K. 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
--- NOTE | ~2024-08-16 | XR_ITS ---
EXAM: XR ankle RT 2V, XR foot RT 2V, XR ankle LT 2V, XR foot LT 2V DATE: 08/16/2024 15:11 HISTORY: Mult joint pain . COMPARISON: None available. FINDINGS: Decreased mineralization. No fracture or dislocation. No lytic or blastic lesion. Mild deg enerative change at the bilateral ankle joints, bilateral first MTP joints, and multiple midfoot join ts. Prominent bilateral os trigonum, which can be a source of chronic ankle pain. Moderate bilateral Achilles and plantar enthesopathy. Moderate bilateral hallux valgus, worse on the left. Bilateral os navicularis. No erosion or periosteal change. Soft tissues within normal limits. IMPRESSION: Osteopenia. Mild polyarticular osteoarthritis of the bilateral ankles and feet. Moderate bilateral Achilles and plantar enthesopathy. Bilateral hallux valgus. Reviewed, dictated and finalized at location K. IMPRESSION: Osteopenia. Mild polyarticular osteoarthritis of the bilateral ankl es and feet. Moderate bilateral Achilles and plantar enthesopathy. Bilateral howard llux valgus. IMPRESSION: Osteopenia. Mild polyarticular osteoarthritis of the bilateral ankl es and feet. Moderate bilateral Achilles and plantar enthesopathy. Bilateral howard llux valgus. IMPRESSION: Osteopenia. Mild polyarticular osteoarthritis of the bilateral ankl es and feet. Moderate bilateral Achilles and plantar enthesopathy. Bilateral howard llux valgus.
== END 2024-08-16 14:16 | disposition home or self-care (01) ==
LOC: MICIMG 14:16
PROVIDERS: PCP Internal Medicine; Visit Provider Internal Medicine Rheumatology
DX: M19.042 Primary osteoarthritis, left hand (principal); M19.041 Primary osteoarthritis, right hand; M19.032 Primary osteoarthritis, left wrist; M19.031 Primary osteoarthritis, right wrist; M85.872 Other specified disorders of bone density and structure, left ankle and foot; M19.071 Primary osteoarthritis, right ankle and foot; M19.072 Primary osteoarthritis, left ankle and foot; M77.52 Other enthesopathy of left foot and ankle; M77.51 Other enthesopathy of right foot and ankle; M20.12 Hallux valgus (acquired), left foot; M20.11 Hallux valgus (acquired), right foot; M76.9 Unspecified enthesopathy, lower limb, excluding foot; M76.891 Other specified enthesopathies of right lower limb, excluding foot
CPT/HCPCS: 73100; 73120; 73521; 73560; 73600; 73620

== ENCOUNTER 2024-09-03 09:14 | Outpatient (CLI) | payer MEDICARE, SELFPAY ==
--- NOTE | ~2024-09-03 | MR_ITS ---
EXAMINATION: MR cervical spine wo con DATE: 09/03/2024 09:44 INDICATION: Chronic neck pain. TECHNIQUE: Magnetic resonance imaging (MRI) of the cervical spine was performed without intravenous c ontrast. COMPARISON: Cervical spine MRI 03/29/2020 FINDINGS: There is 4 degrees levocurvature of cervicothoracic spine. Vertebral body heights are max l. There are changes of anterior fusion procedure from C5 to C7 with healed interbody bone graft and anterior plate and screws. There are changes of posterior fusion procedure at C6-C7 with lateral mass screws. Vertebral body heights are normal. Intervertebral disc heights are normal. The spinal cord s ignal intensity is normal. The following disc levels are specifically discussed: C2-C3: The disc does not extend beyond the endplate margin. There is no uncovertebral joint osteoarth ritis. There is mild right and severe left facet joint osteoarthritis. There is mild left neural fora eugenie stenosis. There is no central canal stenosis. C3-C4: The disc is bulging. There is mild right and moderate left uncovertebral joint osteoarthritis. There is severe bilateral facet joint osteoarthritis. There is mild bilateral neural foraminal steno sis. There is mild central canal stenosis. C4-C5: The disc is bulging. There is mild bilateral uncovertebral joint osteoarthritis. There is katerina re bilateral facet joint osteoarthritis. There is mild bilateral neural foraminal stenosis. There is mild central canal stenosis. C5-C6: There is no uncovertebral joint hypertrophy. There is no facet joint hypertrophy. There is no neural foraminal stenosis. There is no central canal stenosis. C6-C7: There is no uncovertebral joint hypertrophy. There is no facet joint hypertrophy. There is no neural foraminal stenosis. There is no central canal stenosis. C7-T1: The disc does not extend beyond the endplate margin. There is no uncovertebral joint osteoarth ritis. There is severe right and mild left facet joint osteoarthritis. There is mild right neural for aminal stenosis. There is no central canal stenosis. IMPRESSION: 1. Mild cervical spondylosis, stable from 03/29/2020. 2. Anterior fusion procedure from C5 to C7 and posterior fusion procedure at C6-C7. Reviewed, dictated and finalized at location A. [employer] ATTEND[employer] IMPRESSION: 1. Mild cervical spondylosis, stable from 03/29/2020. 2. Anterior fusion procedure from C5 to C7 and posterior fusion procedure at C6 -C7.
--- NOTE | ~2024-09-03 | MR_ITS ---
EXAMINATION: MR lumbar spine wo con DATE: 09/03/2024 09:52 INDICATION: Low back pain. TECHNIQUE: Magnetic resonance imaging (MRI) of the lumbar spine was performed without intravenous con trast. Sequences included sagittal T2-weighted FSE, sagittal T2-weighted FS FSE, sagittal T1-weighted FSE, and axial T2-weighted FSE. COMPARISON: Lumbar spine MRI 11/07/2022, chest CT 06/03/2024 FINDINGS: There is 9 degrees dextrocurvature of lumbar spine. There is 4 mm anterolisthesis of L4 on L5. Vertebral body heights are normal. There is mildly decreased disc height at L4-L5 and severely de creased disc height at L5-S1. There is ligamentum flavum hypertrophy at the disc levels from L2-L3 th rough L4-L5. The distal spinal cord signal intensity is normal. The conus medullaris is at L1. The fo llowing disc levels are specifically discussed: L1-L2: The disc does not extend beyond the endplate margin. There is mild bilateral facet joint osteo arthritis. There is no neural foraminal stenosis. There is no central canal stenosis. L2-L3: The disc does not extend beyond the endplate margin. There is mild bilateral facet joint osteo arthritis. There is no neural foraminal stenosis. There is no central canal stenosis. L3-L4: The disc does not extend beyond the endplate margin. There is moderate bilateral facet joint o steoarthritis. There is no neural foraminal stenosis. There is no central canal stenosis. L4-L5: The disc is bulging and has an annular fissure. There is severe bilateral facet joint osteoart hritis. There is mild bilateral neural foraminal stenosis. There is mild central canal stenosis. L5-S1: The disc is bulging and has an annular fissure. There is severe bilateral facet joint osteoart hritis. There is mild bilateral neural foraminal stenosis. There is mild central canal stenosis. IMPRESSION: 1. Severe lower lumbar spondylosis. Reviewed, dictated and finalized at location A. WORKER
== END 2024-09-03 09:15 | disposition home or self-care (01) ==
LOC: MICIMG 09:14
PROVIDERS: PCP Internal Medicine; Visit Provider Internal Medicine Rheumatology
DX: M47.892 Other spondylosis, cervical region (principal); Z98.1 Arthrodesis status; M47.896 Other spondylosis, lumbar region
CPT/HCPCS: 72141; 72148

== ENCOUNTER 2024-11-18 12:20 | Outpatient (CLI) | payer MEDICARE, SELFPAY ==
--- OUTSIDE RECORDS SUMMARY | 2024-11-18 12:24 | XMS_ITS | CONTINUITY OF CARE DOCUMENT ---
Author Name lamar, lamar Address Unknown Organization [facility] Address [address] [address] [place] [address] Phone [phone] Care Team Providers Care Floor Renovator Name Role Phone Saurabh MARTINO, Fahad Unavailable ANKITA MARTINO, MASON Unavailable [phone] MASON LUCIANO MD Unavailable [phone] PROBLEMS Condition Status Date Provider Notes Other symptoms involving cardiovascular system completed - Fahad Wiley MD Family History of Hypertension: completed - Kye Wiley MD Edema completed - Fahad Wiley MD Palpitations active Fahad Wiley MD Chest pain- nml stress 09/2018 active Digna Wiley MD Anxiety disorder generalized active Katy Wiley MD Hyperlipidemia, unspecified active [facility] Gonzalooremarguerite Tobacco abuse active Fahad Wiley MD Hypertension active Fahad Wiley MD Rheumatoid arthritis active Fahad Wiley MD Obesity active Fahad Wiley MD Shortness of breath active Fahad Ambriz RICKIE - severe, on CPAP active Serafin Solorio Venous insufficiency active Fahad Wiley MD PVD, absent pedal pulses completed - Fahad Wiley MD Peripheral neuropathy active Fahad Wiley MD Leg edema active Isidro Becker MD ENCOUNTERS Date Type Provider Location Encounter Diag nosis - In-person encounter Office Visit Isidro Becker MD [facility] Leg edema - In-person encounter Office Visit Isidro Becker MD [facility] - In-person encounter Office Visit Isidro Becker MD [facility] - In-person encounter Office Visit Isidro Becker MD [facility] - In-person encounter Office Visit Fahad Wiley MD [facility] - In-person encounter Office Visit Fahad Wiley MD [facility] - In-person encounter Office Visit Fahad Wiley MD [facility] - In-person encounter Office Visit Fahad Wiley MD [facility] - In-person encounter Office Visit Fahad Wiley MD [facility] - In-person encounter Office Visit Fahad Wiley MD [facility] - In-person encounter Office Visit Fahad Wiley MD [facility] - In-person encounter Office Visit Fahad Wiley MD [facility] - In-person encounter Office Visit Fahad Wiley MD [facility] PVD, absent pedal pulsesPeripheral neuropathy - In-person encounter Office Visit Fahad Wiley MD [facility] - In-person encounter Office Visit Fahad Wiley MD [facility] - In-person encounter Office Visit Fahad Wiley MD [facility] EdemaOSA - severe, on CPAPVenous insufficiency - In-person encounter Office Visit Fahad Wiley MD [facility] - In-person encounter Office Visit Fahad Wiley MD [facility] Chest pain- nml stress 09/2018Shortness of breathOSA - severe, on CPAP - In-person encounter Office Visit Fahad Wiley MD [facility] Obesity - In-person encounter Office Visit Fahad Wiley MD [facility] Other symptoms involving cardiovascular systemFamily History of Hypertension:Tobacco abuseHypertensionRheumatoid arthritis - In-person encounter Office Visit Fahad Wiley MD [facility] Other symptoms involving cardiovascular systemPalpitationsChest pain- nml stress 09/2018Anxiety disorder generalizedHyperlipidemia, unspecified VITAL SIGNS Date Observation Value Provider Body Mass Index (Ratio) 41.71 kg/m2 Eddy Becker MD blood pressure, cuff size large In sharmila Gama blood pressure, diastolic 74 mm[Hg] In sharmila Gama blood pressure, systolic 146 mm[Hg] [facility] yunior Gama oxygen saturation, oximetry 96 % Sera Gama pulse rate 90 /min Sera ambriz weight E&M 243 [lb_av] Sera ambriz respiratory rate E&M 16 /min Dot Gama height E&M 64 [in_i] Sera ambriz Body Mass Index (Ratio) 41.71 kg/m2 Eddy Becker MD blood pressure, diastolic 94 mm[Hg] Higinio Hughes blood pressure, systolic 166 mm[Hg] She dulce Hughes blood pressure, cuff size regular Higinio Hughes oxygen saturation, oximetry 95 % Sharon Hughes respiratory rate E&M 18 /min Sharon Hughes pulse rate 80 /min Sharon Hughes weight E&M 243 [lb_av] Sharon Hughes height E&M 64 [in_i] Sharon Hughes Body Mass Index (Ratio) 41.98 kg/m2 Eddy Becker MD oxygen saturation, oximetry 95 % Alyson Cha blood pressure, diastolic 86 mm[Hg] St kaiden Cha blood pressure, systolic 147 mm[Hg] Saul Cha pulse rate 87 /min Alyson Cha respiratory rate E&M 18 /min Alyson boles weight E&M 244.6 [lb_av] Alyson Cha height E&M 64 [in_i] Alyson Cha Body Mass Index (Ratio) 42.56 kg/m2 Naima Miranda Body Mass Index (Ratio) 42.56 kg/m2 Eddy Becker MD blood pressure, diastolic 86 mm[Hg] St sherieirene Santamaria blood pressure, systolic 170 mm[Hg] Mikey Santamaria oxygen saturation, oximetry 94 % Lili Santamaria pulse rate 83 /min Lili everett respiratory rate E&M 16 /min Mike sudhakar Santamaria weight E&M 248 [lb_av] Lili everett height E&M 64 [in_i] Lili everett blood pressure, cuff size large St calixto Hina blood pressure, diastolic -1 mm[Hg] Deepa nkLogic blood pressure, systolic 185 mm[Hg] Daphnie kLogic blood pressure, diastolic 97 mm[Hg] An terry Daniel blood pressure, systolic 185 mm[Hg] Any a Daniel weight E&M 248 [lb_av] Maddison Daniel oxygen saturation, oximetry 93 % Maddison Daniel pulse rate 93 /min Maddison Daniel blood pressure, cuff size large An terry Daniel height E&M 64 [in_i] Maddison Daniel Body Mass Index (Ratio) 42.56 kg/m2 Brit michael Ruben blood pressure, cuff size large Sh nina Hughes blood pressure, diastolic 79 mm[Hg] Sh nina Hughes blood pressure, systolic 143 mm[Hg] She dulce Hughes weight E&M 248 [lb_av] Sharon Hughes oxygen saturation, oximetry 97 % Sharon Hughes pulse rate 83 /min Sharon Hughes respiratory rate E&M 20 /min Sharon Hughes height E&M 64 [in_i] Sharon Hughes Body Mass Index (Ratio) 42.22 kg/m2 Miguel Ángel Aranda blood pressure, diastolic 95 mm[Hg] Deepa nkLoggonsalo blood pressure, systolic 173 mm[Hg] Daphnie Banksoggonsalo blood pressure, diastolic 95 mm[Hg] St kaiden Cha blood pressure, systolic 173 mm[Hg] Sta veronica Cha oxygen saturation, oximetry 96 % Alysonveronica Cha pulse rate 82 /min Alysonveronica Cha respiratory rate E&M 16 /min Alyson boles weight E&M 246 [lb_av] Alysonveronica Cha height E&M 64 [in_i] Alysonveronica Cha Body Mass Index (Ratio) 42.74 kg/m2 Sj Wiley MD blood pressure, cuff size large Geeta Gama blood pressure, diastolic 60 mm[Hg] Geeta doll [place] blood pressure, systolic 122 mm[Hg] Eric mojica [place] oxygen saturation, oximetry 96 % Sera Gama respiratory rate E&M 16 /min Dot bonilla Gama pulse rate 86 /min Sera Aman ambriz weight E&M 249 [lb_av] Sera Aman ambriz height E&M 64 [in_i] Sera Aman ambriz Body Mass Index (Ratio) 43.59 kg/m2 Sj Wiley MD blood pressure, diastolic 85 mm[Hg] Sarina Soliz blood pressure, diastolic -1 mm[Hg] Deepa Lee blood pressure, systolic 155 mm[Hg] Daphnie Ross blood pressure, systolic 155 mm[Hg] Harvey trevinosabinejeanette Soliz oxygen saturation, oximetry 93 % Harveyracheltimjeanette Soliz respiratory rate E&M 16 /min Cordell Soliz pulse rate 78 /min Cande nguyễn weight E&M 254 [lb_av] Cande nguyễn blood pressure, cuff size regular Sarina Soliz height E&M 64 [in_i] Cande nguyễn Body Mass Index (Ratio) 43.59 kg/m2 jS Wiley MD blood pressure, diastolic 86 mm[Hg] Deepa nkLoggonsalo blood pressure, systolic 154 mm[Hg] Daphnie kLogic blood pressure, diastolic 86 mm[Hg] Sa ra Cerda blood pressure, systolic 154 mm[Hg] Tameka a Cerda pulse rate 93 /min Josiane Cerda respiratory rate E&M 17 /min Josiane Si ms oxygen saturation, oximetry 98 % Josiane Cerda blood pressure, cuff size large Sa Cerda weight E&M 254 [lb_av] Josiane Cerda height E&M 64 [in_i] Josiane Cerda height E&M 64 [in_i] Fahad Wiley MD Body Mass Index (Ratio) 42.39 kg/m2 Sj Wiley MD blood pressure, cuff size regular Cy ntjosie Latif blood pressure, diastolic 88 mm[Hg] Cy ntmickeya Latif blood pressure, systolic 155 mm[Hg] Sanna mary Latif oxygen saturation, oximetry 97 % Vanessamary Latif respiratory rate E&M 16 /min Vanessa Latif pulse rate 85 /min Vanessa Campbel l weight E&M 247 [lb_av] Vanessa Campbel l height E&M 64 [in_i] Vanessa Campbel l Body Mass Index (Ratio) 42.39 kg/m2 Dennys marguerite Solorio blood pressure, diastolic 88 mm[Hg] Cy nthia Latif blood pressure, systolic 164 mm[Hg] Sanna leylaa Latfi pulse rate 90 /min Vanessa Campbel l oxygen saturation, oximetry 95 % Vanessa Latif respiratory rate E&M 16 /min Vanessa Latif weight E&M 247 [lb_av] Vanessa Campbel l blood pressure, cuff size regular Cy nthia Latif height E&M 64 [in_i] Vanessa Campbel l temperature E&M 97.5 [degF] Jennifer Eusebia jay Body Mass Index (Ratio) 42.05 kg/m2 Dennys n Lyndsey blood pressure, cuff size regular Rh onjen Sanchez blood pressure, diastolic 85 mm[Hg] Rh onda Laura blood pressure, systolic 140 mm[Hg] Rho ashley Sanchez oxygen saturation, oximetry 97 % Nikki Laura respiratory rate E&M 16 /min Nikki Sanchez pulse rate 98 /min Nikki Sanchez weight E&M 245 [lb_av] Nikki Sanchez height E&M 64 [in_i] Nikki Sanchez Body Mass Index (Ratio) 40.68 kg/m2 Dennys n Kyte blood pressure, diastolic 84 mm[Hg] To nsha Milton blood pressure, systolic 131 mm[Hg] Ton [facility] respiratory rate E&M 16 /min [facility] oxygen saturation, oximetry 94 % [facility] pulse rate 96 /min [facility] weight E&M 237 [lb_av] [facility] height E&M 64 [in_i] [facility] Body Mass Index (Ratio) 40.68 kg/m2 Dennys n [facility] pulse rate 90 /min [facility] blood pressure, diastolic 74 mm[Hg] Br [facility] Block blood pressure, systolic 136 mm[Hg] [facility] oxygen saturation, oximetry 95 % [facility] weight E&M 237 [lb_av] Suni Block respiratory rate E&M 16 /min [facility] Block blood pressure, resting Yes [facility] height E&M 64 [in_i] [facility] Body Mass Index (Ratio) 39.99 kg/m2 Sj Wiley MD blood pressure, diastolic 92 mm[Hg] Ch astity Chrissy blood pressure, systolic 142 mm[Hg] Ale stity Chrissy oxygen saturation, oximetry 96 % Chastity Chrissy pulse rate 84 /min Chastity Chrissy respiratory rate E&M 16 /min Diogo Lowe weight E&M 233 [lb_av] Chastity Chrissy height E&M 64 [in_i] [facility] (Ratio) 40.85 kg/m2 Sj Wiley MD respiratory rate E&M 16 /min Vanessa Latif oxygen saturation, oximetry 97 % Vanessa Latif pulse rate 81 /min Vanessa Interiano l blood pressure, cuff size regular Cy simone Latif blood pressure, diastolic 60 mm[Hg] Cy simone Latif blood pressure, systolic 140 mm[Hg] Sanna mary Latif weight E&M 238 [lb_av] Vanessa Interiano l height E&M 64 [in_i] Vnaessa Pichardobel l Body Mass Index (Ratio) 40.85 kg/m2 Sj Wiley MD blood pressure, diastolic 70 mm[Hg] Ki rain [place] blood pressure, systolic 130 mm[Hg] Malick maldonado [place] oxygen saturation, oximetry 96 % [facility] respiratory rate E&M 16 /min [facility] pulse rate 84 /min SaraMary [facility] weight E&M 238 [lb_av] [place] Sherman height E&M 64 [in_i] Sara Sherman Body Mass Index (Ratio) 40.33 kg/m2 Sj Wiley MD blood pressure, diastolic 90 mm[Hg] Da hakan Tiffanie blood pressure, systolic 146 mm[Hg] Dac ia Tiffanie oxygen saturation, oximetry 95 % Brittnee Tiffanie respiratory rate E&M 16 /min Brittnee V oss pulse rate 92 /min Brittnee Tiffanie weight E&M 235 [lb_av] Brittnee Tiffanie height E&M 64 [in_i] Brittnee Moreno Body Mass Index (Ratio) 39.13 kg/m2 Sj Wiley MD blood pressure, diastolic 90 mm[Hg] Ki fransiscaMary [facility]ke [facility] blood pressure, systolic 140 mm[Hg] Malick maldonado [place] oxygen saturation, oximetry 93 % [facility] respiratory rate E&M 16 /min [facility] pulse rate 82 /min [facility] weight E&M 228 [lb_av] [facility] height E&M 64 [in_i] [facility] Body Mass Index (Ratio) 36.90 kg/m2 Anea facundo [facility] blood pressure, diastolic, left arm 99 mm [Hg] Ane[facility] blood pressure, systolic, left arm 175 mm [Hg] [facility]ne[facility] blood pressure, diastolic, right arm 107 mm[Hg] [facility]ne[facility] blood pressure, systolic, right arm 168 m m[Hg] [facility]ne[facility] blood pressure, diastolic 107 mm[Hg] An eatris [facility] blood pressure, systolic 168 mm[Hg] Ane atricathie [facility] pulse rate 97 /min Madyatris [facility] oxygen saturation, oximetry 98 % Madyatris [facility] respiratory rate E&M 18 /min Imanii cathie Marroquin weight E&M 215 [lb_av] [facility] height E&M 64 [in_i] [facility] ALL[facility] Allergy Name Onset Date Reaction Criticality Status LISINOPRIL pt can't remember High Criticality a ctive PRAVACHOL drowsiness drowsiness High Criticali ty active HISTORY OF MEDICATION USE Medication Status Instructions Dates Provider Indications Com ments losartan 25 mg tablet active TAKE 1 TABLET BY MOUTH ONCE DAILY 03/24 Kydeepaa Nilo amiloride 5 mg tablet active TAKE 1/2 TABLET BY MOUTH EVERY DAY 11/27ret losartan 25 mg tablet completed Take 1 tablet by mouth once a day 11/11 - 03/24 Anna Peacock losartan 25 mg tablet completed TAKE 1 TABLET BY MOUTH ONCE DAILY 07/13 - 11/11 Meera Rich potassium chloride 10 mEq tablet,ER particles/crystals active TAKE 2 TABLETS BY MOUTH DAILY 07/13 Maritza Corcoran pantoprazole 40 mg tablet,delayed release (DR/EC) active TAKE 1 TABLET BY MOUTH EVERY DAY Sera Natan amiloride 5 mg tablet completed Take 1/2 tablet by mouth once a day 03/06 - 11/27 Alexis Spence losartan 100 mg tablet completed Take 1 tablet by mouth once a day TAKE 1 TABLET BY MOUTH DAILY 12/24 - 07/13 Sharon Hughes losartan 100 mg tablet completed TAKE 1 TABLET DAILY (DOSE INCREASED 01/09/21) 10/21 - 12/24 Elizabeth HALEY furosemide 20 mg tablet active TAKE 1 TABLET BY MOUTH ONCE DAILY Anna Madonna potassium chloride 10 mEq tablet,ER particles/crystals completed TAKE 1 TABLETS BY MOUTH DAILY 01/30 - 07/13 Sharon Hughes albuterol sulfate 90 mcg/actuation HFA aerosol inhaler active Inhale 2 puff using inhaler every six hours as needed 01/15 Fahad Wiley MD losartan 25 mg tablet completed Take 1 tablet by mouth once a day 01/07 - 10/22 Fahad Wiley MD doxycycline hyclate 100 mg tablet completed Take 1 tablet by mouth twice a day 10/30 - 11/04 Fahad Wiley MD potassium chloride 10 mEq tablet,ER particles/crystals completed TAKE 2 TABLETS BY MOUTH DAILY 05/19 - 01/30 Lawrence French RN losartan 25 mg tablet completed Take 1 tablet once a day 06/06 - 01/07 Fahad Wiley MD Lasix 20 mg tablet completed Take 1 tablet by mouth once a day 06/06 - 0 Sera Natan gabapentin 300 mg capsule active Take 1 capsule three times a day 02/21 Vanessa Latif Plaquenil 200 mg tablet active 2 tablet twice a day 02/21 Fahad Wiley MD DICLOFENAC SODIUM 75 MG ORAL TABLET DELAYED RELEASE completed take 1 tab twice a day as needed 02/21 - 06/06 Vanessa Latif VICODIN ES 7.5-300 MG ORAL TABLET completed 1 tab at night 11/16 - 02/21 Vanessa Latif [facility] NICOTINE 14 MG/24HR TRANSDERMAL PATCH 24 HOUR completed apply one patch daily - 11/16 Fahad Wiley MD Acidophilus tablet,chewable active 1 tablet once a day 02/23 Chastity Chrissy GINSENG 100 MG ORAL CAPSULE completed one tab once daily 02/23 - 11/16 Fahad Wiley MD potassium chloride 10 mEq tablet,ER particles/crystals completed Take 1 tablet once a day 04/26 - 05/19 Aide Gann HYDROCHLOROTHIAZIDE TABS 12.5MG completed TAKE 1 TABLET DAILY 01/28 - 06/06 Fahad Wiley MD [id number] UNIT ORAL CAPSULE completed take 1 caps daily 01/27 - 11/16 Fahad Wiley MD TRAMADOL HCL 50 MG ORAL TABLET completed TK 1 T PO Q 6 H PRN 12/29 - 02/21 Vanessa Latif #120, 30 days supply, Prescribed by MASON LUCIANO, Filled 01/08/2019 MELOXICAM 15 MG ORAL TABLET completed TK 1 T PO QD 01/10 - 02/21 Vanessa Latif #30, 30 days supply, Prescribed by KEEGAN VELIZ, Filled 01/10/2019 ENBREL 50 MG/ML SUBCUTANEOUS SOLUTION PREFILLED SYRINGE completed inject as directed once weekly 11/08 - 01/27 Sara Sherman Nitrostat 0.4 mg tablet, sublingual active Apply 1 tablet under tongue as needed 11/08 Fahad Wiley MD aspirin 81 mg tablet,delayed release (DR/EC) active 1 tablet once a day 11/08 Aide Gann simvastatin 20 mg tablet active 1 tablet once a day 11/08 Aide Gann Colace 100 mg capsule active 1 capsule twice a day 11/08 Aide Gann MULTIVITAMIN ADULTS 50+ ORAL TABLET completed 1 tab daily 11/08 - 11/16 Fahad Wiley MD Garland-3 Fish Oil 300-1,000 mg capsule active 1 capsule once a day 11/08 Aide Gann B-12 1000 MCG ORAL CAPSULE completed 1 caps daily 11/08 - 11/16 Fahad Wiley MD venlafaxine 75 mg tablet active 1 tablet once a day 11/08 Aide Gann amlodipine 5 mg tablet active 1/2 tablet once a day 11/08 Isidro Becker MD FOLIC ACID 1 MG ORAL TABLET completed 1 tab watt 11/08 - 11/16 Fahad Wiley MD METHOTREXATE 2.5 MG ORAL TABLET completed 4 tabs on 11/08 - 01/27 Sara Weaveram PREDNISONE 5 MG ORAL TABLET completed 1 tab daily 11/08 - 01/27 Sara Sherman TRAMADOL HCL 50 MG ORAL TABLET completed One tab twice daily as needed 07/12 - 11/08 Sara Sherman NAPROSYN 500 MG ORAL TABLET completed One tab three times daily as needed 07/12 - 11/08 Sara Sherman alprazolam 0.25 mg tablet active 1 tablet once a day as needed 11/16 Fahad Wiley MD SOCIAL HISTORY Date Observation Value Provider social history reviewed E&M revi ewed - no changes required Isidro Becker MD social history E&M S moking History: P atient currently smokes every day. P atient has been counseled to quit. Isidro Becker MD Exercise counseling yes Sera Gama smoking/tobacco cess ation, patient education and counseling yes Sera Gama number of years as a smoker 45 a Sera Gama smoking, date started 1972 Armen Cobb smoking history, tot al pack/year 47 Sera Gama smoking history, tot al pack/day 1 pkg daily eSra Gama cigarette use yes Sera Matrinez gonzalo smoking status Current every da y smoker Sera Natan alcohol use no Isidro Becker MD Exercise counseling yes Isidro lau MD smoking/tobacco cess ation, patient education and counseling yes Isidro Becker MD number of years as a smoker 45 a Isidro Becker MD smoking, date started 1972 Isidro Becker MD smoking history, tot al pack/year 47 Isidro Becker MD smoking status Current every da y smoker Isidro Becker MD social history reviewed E&M revi ewed - no changes required Isidro Becker MD smoking history, tot al pack/day 1 pkg daily Isidro Becker MD cigarette use yes Sharon Hughes social history E&M S moking History: P atient currently smokes every day. P atient has been counseled to quit. Isidro Becker MD social history reviewed E&M revi ewed - no changes required Isidro Becker MD Exercise counseling yes Alyson Wick smoking/tobacco cess ation, patient education and counseling yes Alyson Cha number of years as a smoker 45 a Alyson Cha smoking, date started 1972 Alyson Cha smoking history, tot al pack/year 47 Alyson Cha smoking history, tot al pack/day 1 pkg daily Alyson Cha cigarette use yes Alyson Cha smoking status Current every da y smoker Alyson Cha Exercise counseling yes Priya Santamaria smoking/tobacco cess ation, patient education and counseling yes Lili Santamaria number of years as a smoker 45 a Lili Santamaria smoking, date started 1972 Omayra Santamaria smoking history, tot al pack/year 47 Lili Santamaria smoking history, tot al pack/day 1 pkg daily Lili Santamaria cigarette use yes Lili mancilla smoking status Current every da y smoker Lili Santamaria social history E&M S moking History: P atient currently smokes every day. P atient has been counseled to quit. Fahad Wiley MD social history reviewed E&M revi ewed - no changes required Fahad Wiley MD drug use no Elizabeth Ventimig luci [facility] alcohol use no Elizabeth Ventimig luci [facility] Exercise counseling yes Maddison vermatn smoking/tobacco cess ation, patient education and counseling yes Maddison Daniel number of years as a smoker 45 a Maddison Sanchez smoking, date started 1972 Maddison Julio C stanislav smoking history, tot al pack/year 47 Maddison Daniel smoking history, tot al pack/day 1 pkg daily Maddison Daniel cigarette use yes Maddison Daniel smoking status Current every da y smoker Maddison Sanchez drug use no Elizabeth Ventimig luci [employer] alcohol use no Elizabeth Ventimig luci [facility] smoking history, tot al pack/day 1 pkg daily Sharon Ellen cigarette use yes Sharon Hughes smoking status Current every da y smoker Sharon Hughes social history E&M S moking History: P atient currently smokes every day. P atient has been counseled to quit. Fahad Wiley MD social history reviewed E&M revi ewed - no changes required Fahad Wiley MD Exercise counseling yes Alyson Howe kaley smoking/tobacco cess ation, patient education and counseling yes Alyson Cha number of years as a smoker 45 a Alyson Cha smoking, date started 1972 Alyson Cha smoking history, tot al pack/year 47 Alyson Cha smoking history, tot al pack/day 1 Alyson Cha cigarette use yes Alyson Cha smoking status Current every da y smoker Alyson Cha social history reviewed E&M revi ewed - no changes required Fahad Wiley MD social history E&M S moking History: P atient currently smokes every day. P atient has been counseled to quit. Fahad Wiley MD Exercise counseling yes Sera Gama smoking/tobacco cess ation, patient education and counseling yes Sera Ortizand number of years as a smoker 45 a Sera Gama smoking, date started 1972 Armen Cobb smoking history, tot al pack/year 45 Sera Gama smoking history, tot al pack/day 1 Sera Ortizand cigarette use yes Sera Michelle sánchez smoking status Current every da y smoker Sera Gama social history reviewed E&M revi ewed - no changes required Fahad Wiley MD Exercise counseling yes Hayley Soliz social history reviewed E&M revi ewed - no changes required Fahad Wiley MD social history E&M S moking History: P atient currently smokes every day. P atient has been counseled to quit. Fahad Wiley MD social history reviewed E&M revi ewed - no changes required Fahda Wiley MD smoking/tobacco cess ation, patient education and counseling yes Vanessa Latif number of years as a smoker 47 a Vanessa Latif smoking, date started 1972 Adrian Latif smoking history, tot al pack/year 47 Vanessa Latif smoking history, tot al pack/day 1 Vanessa Latif cigarette use yes Vanessa gongora smoking status Current every da y smoker Vanessa Latif social history E&M S moking History: P atient currently smokes every day. P atient has been counseled to quit. Fahad Wiley MD social history reviewed E&M revi ewed - no changes required Fahad Wiley MD smoking/tobacco cess ation, patient education and counseling yes Vanessa Latif number of years as a smoker 47 a Vanessa Latif smoking, date started 1972 Adrian Latif smoking history, tot al pack/year 47 Vanessa Latif smoking history, tot al pack/day 1 Vanessa Latif cigarette use yes Vanessa Ku fransisca smoking status Current every da y smoker Vanessa Latif social history E&M S moking History: P atient currently smokes every day. P atient has been counseled to quit. Fahad Wiley MD smoking/tobacco cess ation, patient education and counseling yes Fahad Wiley MD social history reviewed E&M revi ewed - no changes required Fahad Wiley MD smoking status Current every da y smoker Nikki Sanchez social history E&M S moking History: P atient currently smokes every day. P atient has been counseled to quit. Fahad Wiley MD social history reviewed E&M revi ewed - no changes required Fahad Wiley MD smoking/tobacco cess ation, patient education and counseling yes Tamela Milton number of years as a smoker 47 a Tamela Milton smoking, date started [facility], tot al pack/year 45 [facility], tot al pack/day 1 [facility] cigarette use yes [facility] smoking status Current every da y smoker Palak Milton social history E&M S moking History: P atient currently smokes every day. P atient has been counseled to quit. Fahad Wiley MD social history reviewed E&M revi ewed - no changes required Fahad Wiley MD smoking/tobacco cess ation, patient education and counseling yes Suni Nova number of years as a smoker 45 a Suni Block smoking, date started 1972 [facility] smoking history, tot al pack/year 45 [facility] smoking history, tot al pack/day 1 [facility] cigarette use yes [facility] smoking status Current every da y smoker [facility] social history E&M S moking History: P atient currently smokes every day. P atient has been counseled to quit. Fahad Wiley MD social history reviewed E&M revi ewed - no changes required Fahad Wiley MD smoking/tobacco cess ation, patient education and counseling yes Juliette Chrissy number of years as a smoker 47 a Chastity Chrissy smoking, date started 1972 Chasti ty Chrissy smoking history, tot al pack/year 45 Chastity Chrissy smoking history, tot al pack/day 1 Chastity Chrissy cigarette use yes Chastity Chrissy smoking status Current every da y smoker Chastity Chrissy social history E&M S moking History: P atient currently smokes every day. P atient has been counseled to quit. Fahad Wiley MD social history reviewed E&M revi ewed - no changes required Fahad Wiley MD smoking/tobacco cess ation, patient education and counseling yes Vanessa Latif number of years as a smoker 47 a Vanessa Latif smoking, date started 1972 Adrian Latif smoking history, tot al pack/year 45 Vanessa Latif smoking history, tot al pack/day 1 Vanessa Latif cigarette use yes Vanessa gongora smoking status Current every da y smoker Vanessa Latif social history E&M S moking History: P atemmanuel currently smokes every day. P atient has been counseled to quit. Fahad Wiley MD social history reviewed E&M revi ewed - no changes required Fahad Wiley MD smoking/tobacco cess ation, patient education and counseling yes Sara Weaveram number of years as a smoker 45 a Sara Sherman smoking, date started 1972 Cari everett [place] smoking history, tot al pack/year 45 Sara [place] smoking history, tot al pack/day 1 Sara [place] cigarette use yes Sara Dover smoking status Current every da y smoker Sara Dover social history E&M S moking History: P atient currently smokes every day. P atient has been counseled to quit. Fahad Wiley MD social history reviewed E&M revi ewed - no changes required Fahad Wiley MD smoking/tobacco cess ation, patient education and counseling yes Brittnee Tiffanie number of years as a smoker 47 a Brittnee Tiffanie smoking, date started 1972 Brittnee Tiffanie smoking history, tot al pack/year 45 Brittnee Tiffanie smoking history, tot al pack/day 1 Brittnee Tiffanie cigarette use yes Brittnee Tiffanie smoking status Current every da y smoker Brittnee Moreno number of years as a smoker 47 a Fahad Wiley MD social history reviewed E&M revi ewed - no changes required Fahad Wiley MD social history E&M Smoking Histo ry: P atient currently smokes every day. P atient has been counseled to quit. Fahad Wiley MD number of grandchildren Fahad Wiley MD [facility] smoking/tobacco cess ation, patient education and counseling yes [facility] smoking, date started 1972 Kalpana n [place] smoking history, tot al pack/year 45 [facility] smoking history, tot al pack/day 1 [facility] cigarette use yes [facility] smoking status Current every da y smoker [facility] smoking history, tot al pack/year 45 Shira Fowlermarguerite smoking/tobacco cess ation, patient education and counseling yes Fahad Wiley MD social history reviewed E&M revi ewed - no changes required Fahad Wiley MD smoking, date started 1972 Imani Marroquin smoking history, tot al pack/day 1 Carlito Lopez cigarette use yes Carlito Marroquin smoking status Current every da y smoker Imanikevon Lopez FAMILY HISTORY Family Member Condition Father Family History of Hy pertension: Mother Family History Breas t Cancer: INSURANCE PROVIDERS Payer name Policy type / Coverage type [place] [employer] party ID A[employer] MEDICARE ADVANTAGE HMO-POS HMO [id number] ADVANCE DIRECTIVES Name Date DISCUSSED - NO DECISION MADE TREATMENT PLAN Date Name Performer [id number],S, Isidro Becker MD [id number],C,T he Patient was reencouraged to stop smoking. Pt reports it to be same as before Isidro Becker MD [id number],C,H er left leg is worse than right and she is having pain in her left W ill plan for R heart cath and venogram with IVUS Isidro Becker MD [id number],C,T he patient is using CPAP on a regular basis. The patient has been benefiting from therapy and should continue use. Isidro Becker MD [id number],S, Isidro Becker MD [id number],S, B P today: 147/86 P rior BP: 170/86 (12/25/2022) Her updated medication list for this problem includes: Amlodipine 5 Mg Tablet (Amlodipine) ..... 1/2 tablet once a day Amiloride 5 Mg Tablet (Amiloride) ..... Take 1/2 tablet by mouth once a day Losartan 100 Mg Tablet (Losartan) ..... Take 1 tablet by mouth once a day take 1 tablet by mouth daily Furosemide 20 Mg Tablet (Furosemide) ..... Take 1 tablet by mouth once daily Aspirin 81 Mg Tablet,delayed Release (dr/ec) (Aspirin) ..... 1 tablet once a day Isidro Becker MD [id number],S,S he is s/p left GSV closure. She still has a bit of swelling and will try to add a diuretic. Isidro Becker MD [id number],S,S he had venous doppler done that showed: 1 . No evidence of a deep vein thrombosis of the lower extremities bilaterally. 2. Significant venous insufficiency of the great saphenous vein bilaterally. She has worn compression socks without relief and we will do her left GSV Isidro Becker MD [id number],S, Isidro Becker MD [id number],C,l ifestyle modification encouraged Fahad Wiley MD [id number],C, H er updated medication list for this problem includes: Simvastatin 20 Mg Tablet (Simvastatin) ..... 1 tablet once a day Fahad Wiley MD [id number],C,T he patient is using CPAP on a regular basis. The patient has been benefiting from therapy and should continue use. Fahad Wiley MD [id number],C,S he continues to have pain with minimal ambulation and significant swelling. She had venous doppler done that showed 1 . No evidence of a deep vein thrombosis of the lower extremities bilaterally. 2. Significant venous insufficiency of the great saphenous vein bilaterally. will have her see Dr. Becker for further intervention. Fahad Wiley MD [id number],C,B lood pressure 185/97 W ill increase losartan from 50 mg a day to 100 mg a day w ill plan RPM Fahad Wiley MD [id number],S, S JOÃOLY ENCOURAGED TO STOP SMOKING; SMOKING CESSATION TECHNIQUES DISCUSSED. Suni Miranda [id number],C,l ifestyle modification encouraged. Elizabeth Burleson [facility] [id number],C,B lood pressure still not at goal. Will increase losartan dose. We will however, decrease norvasc dose as concern it may be contributing to LE edema. Will f/u in a mos or sooner if needed. H er updated medication list for this problem includes: Losartan 25 Mg Tablet (Losartan) ..... Take 1 tablet by mouth once daily Furosemide 20 Mg Tablet (Furosemide) ..... Take 1 tablet by mouth once daily Aspirin 81 Mg Tablet,delayed Release (dr/ec) (Aspirin) ..... 1 tablet once a day Amlodipine 10 Mg Tablet (Amlodipine) ..... 1 tablet once a day Elizabeth Burleson [facility] [id number],C,S he continues to have pain with minimal ambulation and significant swelling. She had venous doppler done that showed 1 . No evidence of a deep vein thrombosis of the lower extremities bilaterally. 2. Significant venous insufficiency of the great saphenous vein bilaterally. W ill have Dr. Becker review imaging to determine if candidate for further intervention. Encouraged her to continue compression, elevation and diuretic at this time. Elizabeth Burleson [employer] [id number],W, I n spite of being on 900mg of gabapentin, continues to be symptomatic with pain, numbness, and tingling. Follows Dr. Lino and he due to see her soon. Fahad Wiley MD [id number],S, F karie rheumatology, Dr. Elder in [place]. Continues on Plaquenil. Fahad Wiley MD [id number],S, C ontinues on Simvastatin. Fahad Wiley MD [id number],S, N o recurrence. Fahad Wiley MD [id number],S, H as been utilizing compression stockings without much improvement in her leg pain or swelling. Discussed possibility of doing venogram and/or venaseal. As she is agreeable, we will check venous dopplers and then refer her for further workup. She may also benefit from amlodipine reduced to 5mg in case it is contributing to the swelling. Fahad Wiley MD [id number],S, T he patient is using CPAP on a regular basis. The patient has been benefiting from therapy and should continue use. Fahad Wiley MD [id number],S, H er effort-related SOB persists and she continues using albuterol inhaler as needed. Fahad Wiley MD [id number],S, S ALYSSA ENCOURAGED TO STOP SMOKING; SMOKING CESSATION TECHNIQUES DISCUSSED. Fahad Wiley MD [id number],W, B lood pressure is elevated today. Continues on amlodipine. Advised routine home monitoring at least 2-3 times a week. We aim for a BP of 140/80 or lower. Fahad Wiley MD [id number],S, N o recurrence. Fahad Wiley MD [id number],S,F ollows rheumatology. Continues on Plaquenil. Fahad Wiley MD [id number],C,T he patient is using CPAP on a regular basis. The patient has been benefiting from therapy and should continue use. Fahad Wiley MD [id number],S,O n Gabapentin follows neurology. Fahad Wiley MD [id number],B,N o recurrence. Fahad Wiley MD [id number],S,C ontinues on Simvastatin. Fahad Wiley MD [id number],B,B lood pressure control is satisfactory. Continues on amlodipine. Fahad Wiley MD [id number],S,H er SOB persists and she continues using albuterol inhaler as needed. Based on the results of her PFT showing moderately obstructed airways and asthma, she will benefit from pulmonary evaluation. Fahad Wiley MD [id number],S, F ollows rheumatology. Continues on Plaquenil. Fahad Wiley MD [id number],C, S he continues to have SOB with exertion. Her 6 minute walk test and stress test were normal. PFT results are pending. If PFTs are normal, we will send her to a glue machine operator for further workup. For symptom relief until PFTs are finished, we will prescribe her an albuterol inhaler. Fahad Wiley MD [id number],S, T he patient is using CPAP on a regular basis. The patient has been benefiting from therapy and should continue use. Fahad Wliey MD [id number],S, H as been utilizing compression stockings. Last LE US on 10/31/21 showed: 1. No evidence of a deep vein thrombosis of the right lower extremity. 2 . Significant venous insufficiency of the right great saphenous vein. The vessel measure 4.0mm proximal, 4.8mm mid, and 3 .0mm distal. Reflux time of 1.6 sec. 3 . The area of pain and recent trauma showed multiple hematomas, the largest measuring approximately 3.7cm x 1.2cm. No e vidence of active hypodermic bleeding. Fahad Wiley MD [id number],S, O n Gabapentin follows neurology. Fahad Wiley MD [id number],S, N o recurrence. Fahad Wiley MD [id number],S, S TROFAVIOLALY ENCOURAGED TO STOP SMOKING; SMOKING CESSATION TECHNIQUES DISCUSSED. Fahad Wiley MD [id number],S, C ontinues on Simvastatin. Fahad Wiley MD [id number],C, E levated BP at 155/85 today. Continues on Amlodipine. Advised reduced sodium intake and routine monitoring of the blood pressure. We aim for less than 130/80. Fahad Wiley MD [id number],C, N o recurrence. Fahad Wiley MD [id number],C, T he patient is using CPAP on a regular basis. The patient has been benefiting from therapy and should continue use. Fahad Wiley MD [id number],C, E levated BP at 154/86 today. Continues on Amlodipine. Fahad Wiley MD [id number],C, H as been utilizing compression stockings. Last LE US on 10/31/21 showed: 1. No evidence of a deep vein thrombosis of the right lower extremity. 2 . Significant venous insufficiency of the right great saphenous vein. The vessel measure 4.0mm proximal, 4.8mm mid, and 3 .0mm distal. Reflux time of 1.6 sec. 3 . The area of pain and recent trauma showed multiple hematomas, the largest measuring approximately 3.7cm x 1.2cm. No e vidence of active hypodermic bleeding. Fahad Wiley MD [id number],C,S he has had worsening SOB, where she has to take breaks to regain her breath when walking. Likely multifactoral related to obesity, deconditionig, and sleep apnea. Will schedule a PFT with a 6 minute walk test and a stress test. Fahad Wiley MD [id number],C,T he patient is using CPAP on a regular basis. The patient has been benefiting from therapy and should continue use. Fahad Wiley MD [id number],C,C ontinues on Simvastatin. Fahad Wiley MD [id number],C,P rior BP: 155/88 (06/06/2020). Continues on Amlodipine. Advised routine monitoring of the BP daily. Fahad Wiley MD [id number],C,S welling improved on Lasix and with compression stockings which she continues. Fahad Wiley MD Cardiology Isidro Becker MD Cardiology:The Manohar nt was reencouraged to stop smoking. Pt reports it to be same as before Isidro Becker MD Cardiology:Her left leg is worse than right and she is having pain in her left W ill plan for R heart cath and venogram with IVUS Isidro Becker MD Cardiology:The manohar nt is using CPAP on a regular basis. The patient has been benefiting from therapy and should continue use. Isidro Becker MD Cardiology Isidro Becker MD Cardiology: B P today: 147/86 P rior BP: 170/86 (12/25/2022) Her updated medication list for this problem includes: Amlodipine 5 Mg Tablet (Amlodipine) ..... 1/2 tablet once a day Amiloride 5 Mg Tablet (Amiloride) ..... Take 1/2 tablet by mouth once a day Losartan 100 Mg Tablet (Losartan) ..... Take 1 tablet by mouth once a day take 1 tablet by mouth daily Furosemide 20 Mg Tablet (Furosemide) ..... Take 1 tablet by mouth once daily Aspirin 81 Mg Tablet,delayed Release (dr/ec) (Aspirin) ..... 1 tablet once a day Isidro Becker MD Cardiology:She is s/ p left GSV closure. She still has a bit of swelling and will try to add a diuretic. Isidro Becker MD Telehealth:She had v enous doppler done that showed: 1 . No evidence of a deep vein thrombosis of the lower extremities bilaterally. 2. Significant venous insufficiency of the great saphenous vein bilaterally. She has worn compression socks without relief and we will do her left GSV Isidro Becker MD Telehealth Isidro Becker MD Cardiology:lifestyle modificatio n encouraged Fahad Wiley MD Cardiology: H er updated medication list for this problem includes: Simvastatin 20 Mg Tablet (Simvastatin) ..... 1 tablet once a day Fahad Wiley MD Cardiology:The patie nt is using CPAP on a regular basis. The patient has been benefiting from therapy and should continue use. Fahad Wiley MD Cardiology:She cristela nues to have pain with minimal ambulation and significant swelling. She had venous doppler done that showed 1 . No evidence of a deep vein thrombosis of the lower extremities bilaterally. 2. Significant venous insufficiency of the great saphenous vein bilaterally. will have her see Dr. Becker for further intervention. Elizabeth Burleson [facility] Cardiology:Blood pre ssure 185/97 W ill increase losartan from 50 mg a day to 100 mg a day w ill plan RPM Fahad Wiley MD Cardiology: Cathie SHAH ENCOURAGED TO STOP SMOKING; SMOKING CESSATION TECHNIQUES DISCUSSED. Suni Miranda Cardiology:lifestyle modificatio n encouraged. Elizabeth Burleson [facility] Cardiology:Blood pre ssure still not at goal. Will increase losartan dose. We will however, decrease norvasc dose as concern it may be contributing to LE edema. Will f/u in a mos or sooner if needed. Her updated medication list for this problem includes: Losartan 25 Mg Tablet (Losartan) ..... Take 1 tablet by mouth once daily Furosemide 20 Mg Tablet (Furosemide) ..... Take 1 tablet by mouth once daily Aspirin 81 Mg Tablet,delayed Release (dr/ec) (Aspirin) ..... 1 tablet once a day Amlodipine 10 Mg Tablet (Amlodipine) ..... 1 tablet once a day Elizabeth Burleson [facility] Cardiology:She cristela nues to have pain with minimal ambulation and significant swelling. She had venous doppler done that showed 1 . No evidence of a deep vein thrombosis of the lower extremities bilaterally. 2. Significant venous insufficiency of the great saphenous vein bilaterally. W ill have Dr. Becker review imaging to determine if candidate for further intervention. Encouraged her to continue compression, elevation and diuretic at this time. Elizabeth Sarah Beth [facility] Cardiology: I n spite of being on 900mg of gabapentin, continues to be symptomatic with pain, numbness, and tingling. Follows Dr. Lino and he due to see her soon. Fahad Wiley MD Cardiology: Ayden tiwari rheumatology, Dr. Elder in [place]. Continues on Plaquenil. Fahad Wiley MD Cardiology: C mukul on Simvastatin. Fahad Wiley MD Cardiology: N o recurrence. Fahad Wiley MD Cardiology: H as been utilizing compression stockings without much improvement in her leg pain or swelling. Discussed possibility of doing venogram and/or venaseal. As she is agreeable, we will check venous dopplers and then refer her for further workup. She may also benefit from amlodipine reduced to 5mg in case it is contributing to the swelling. Fahad Wiley MD Cardiology: T he patient is using CPAP on a regular basis. The patient has been benefiting from therapy and should continue use. Fahad Wiley MD Cardiology: H er effort-related SOB persists and she continues using albuterol inhaler as needed. Fahad Wiley MD Cardiology: S JOÃOLY ENCOURAGED TO STOP SMOKING; SMOKING CESSATION TECHNIQUES DISCUSSED. Fahad Wiley MD Cardiology: B lood pressure is elevated today. Continues on amlodipine. Advised routine home monitoring at least 2-3 times a week. We aim for a BP of 140/80 or lower. Fahad Wiley MD Cardiology: N o recurrence. Fahad Wiley MD Cardiology:Follows r heumatology. Continues on Plaquenil. Fahad Wiley MD Cardiology:The patie nt is using CPAP on a regular basis. The patient has been benefiting from therapy and should continue use. Fahad Wiley MD Cardiology:On Gabape ntin follows neurology. Fahad Wiley MD Cardiology:No recurr ence. Fahad Wiley MD Cardiology:Continues on Simvastatin. Fahad Wiley MD Cardiology:Blood pre ssure control is satisfactory. Continues on amlodipine. Fahad Wiley MD Cardiology:Her SOB p ersists and she continues using albuterol inhaler as needed. Based on the results of her PFT showing moderately obstructed airways and asthma, she will benefit from pulmonary evaluation. Fahad Wiley MD Cardiology: F ollows rheumatology. Continues on Plaquenil. Fahad Wiley MD Cardiology: S he continues to have SOB with exertion. Her 6 minute walk test and stress test were normal. PFT results are pending. If PFTs are normal, we will send her to a glue machine operator for further workup. For symptom relief until PFTs are finished, we will prescribe her an albuterol inhaler. Fahad Wiley MD Cardiology: T he patient is using CPAP on a regular basis. The patient has been benefiting from therapy and should continue use. Fahad Wiley MD Cardiology: H as been utilizing compression stockings. Last LE US on 10/31/21 showed: 1. No evidence of a deep vein thrombosis of the right lower extremity. 2 . Significant venous insufficiency of the right great saphenous vein. The vessel measure 4.0mm proximal, 4.8mm mid, and 3 .0mm distal. Reflux time of 1.6 sec. 3 . The area of pain and recent trauma showed multiple hematomas, the largest measuring approximately 3.7cm x 1.2cm. No e vidence of active hypodermic bleeding. Fahad Wiley MD Cardiology: O n Gabapentin follows neurology. Fahad Wiley MD Cardiology: N o recurrence. Fahad Wiley MD Cardiology: S ALYSSA ENCOURAGED TO STOP SMOKING; SMOKING CESSATION TECHNIQUES DISCUSSED. Fahad Wiley MD Cardiology: Ita gilman on Simvastatin. Fahad Wiley MD Cardiology: E levated BP at 155/85 today. Continues on Amlodipine. Advised reduced sodium intake and routine monitoring of the blood pressure. We aim for less than 130/80. Fahad Wiley MD Cardiology: N o recurrence. Fahad Wiley MD Cardiology: T he patient is using CPAP on a regular basis. The patient has been benefiting from therapy and should continue use. Fahad Wiley MD Cardiology: E levated BP at 154/86 today. Continues on Amlodipine. Fahad Wiley MD Cardiology: H as been utilizing compression stockings. Last LE US on 10/31/21 showed: 1. No evidence of a deep vein thrombosis of the right lower extremity. 2 . Significant venous insufficiency of the right great saphenous vein. The vessel measure 4.0mm proximal, 4.8mm mid, and 3 .0mm distal. Reflux time of 1.6 sec. 3 . The area of pain and recent trauma showed multiple hematomas, the largest measuring approximately 3.7cm x 1.2cm. No e vidence of active hypodermic bleeding. Fahad Wiley MD Cardiology:She has h ad worsening SOB, where she has to take breaks to regain her breath when walking. Likely multifactoral related to obesity, deconditionig, and sleep apnea. Will schedule a PFT with a 6 minute walk test and a stress test. Fahad Wiley MD Telehealth:The manohar nt is using CPAP on a regular basis. The patient has been benefiting from therapy and should continue use. Fahad Wiley MD Telehealth:Continues on Simvastatin. Fahad Wiley MD Telehealth:Prior BP: 155/88 (06/06/2020). Continues on Amlodipine. Advised routine monitoring of the BP daily. Fahad Wiley MD Telehealth:Swelling improved on Lasix and with compression stockings which she continues. Fahad Wiley MD Telehealth:Follows r heumatology. Continues on Plaquenil. Serafin Solorio Telehealth:Continues [facility]asta tin. [facility]The manohar nt is using CPAP on a regular basis. The patient has been benefiting from therapy and should continue use. [facility]:Continues on Losartan 25mg and Amlodipine 10mg daily. Advised reduced sodium intake and routine monitoring of the blood pressure. We aim for blood pressure less than 130/80. Serafin Telehealth:No recurrence. Serafin Kymichelle Telehealth:Swelling improved on Lasix and with compression stockings which she continues. Serafin Solorio Cardiology follow up :Weight los s advised. Fahad Wiley MD Cardiology follow up :Remains symptomatic with joint pains. Follows rheumatology. Fahad Wiley MD Cardiology follow up :STRONGLY ENCOURAGED TO STOP SMOKING; SMOKING CESSATION TECHNIQUES DISCUSSED. Fahad Wiley MD Cardiology follow up :Continues on Simvastatin. Fahad Wiley MD Cardiology follow up :The patient is using CPAP on a regular basis. The patient has been benefiting from therapy and should continue use. Fahad Wiley MD Cardiology follow up :Blood pressure consistently elevated. She reports she has had a reaction to Lisinopril in the past. Will start Losartan 25mg daily. She continues on the Amlodipine 10mg daily. Advised reduced sodium intake and routine monitoring of the blood pressure. We aim for less than 130/80. Fahad Wiley MD Cardiology follow up :Leg swelling persists. Advised to wear compression stockings daily. Will discontinue HCTZ and start Lasix 20mg daily. Will increase Potassium to 20meq daily. Fahad Wiley MD Cardiology follow up :No recurrence. She continues on Aspirin 81mg daily. Fahad Wiley MD Cardiology:Continues on Simvastatin. Serafin Cardiology:Weight loss advised Yany rincon michelle Cardiology:STRONGLY ENCOURAGED TO STOP SMOKING; SMOKING CESSATION TECHNIQUES DISCUSSED. Cardiology:Follows rheumatology. Cardiology:On Gabapentin follows neurology. Cardiology:The leg e aleks is likely related to venous insufficiency. Compression stockings were prescribed. Compliance stressed. Cardiology:Blood pre ssure elevated. She will get a blood pressure cuff and monitor her blood pressure and call in 1 week with the numbers. If her blood pressure remains elevated, will adjust antihypertensives. Cardiology: Cathie SHAH ENCOURAGED TO STOP SMOKING; SMOKING CESSATION TECHNIQUES DISCUSSED. Cardiology: C rosendoues on Simvastatin. Cardiology: W eight loss advised Cardiology:Continues on Meloxicam and Tramadol as needed. Cardiology:Significa nt leg and ankle swelling persists despite diruetics, compression stockings, and elevation which the patient has used for the past 6 months with minimal improvement. I did previously discuss EVLT vs medical management with the patient and her and she would like to continue with medical management. Cardiology:The patie nt is using CPAP on a regular basis. The patient has been benefiting from therapy and should continue use. Cardiology:Blood pre ssure stable. Advised reduced sodium intake and weight loss. Cardiology:Remains s ymptomatic with pain in the legs and feet. Following neurology. Cardiology:Continues on Simvasta tin. Cardiology:STRONGLY ENCOURAGED TO STOP SMOKING; SMOKING CESSATION TECHNIQUES DISCUSSED. Cardiology:The patie nt is using CPAP on a regular basis. The patient has been benefiting from therapy and should continue use. She may benefit from repeat titration. Cardiology:Weight loss advised Yany rincon Cardiology:No recurrence. Cardiology:Leg pain on walking and absent pedal pulses concerning for PVD. Will arrange LE MONCHO. Planned for nerve conduction study to rule out neuropathy. Cardiology:Blood pressure contro l is satisfactory. Cardiology:Unchanged . Likely multifactoral related to obesity, deconditionig, and sleep apnea. Her PFTs were unremarkable. Fahad Wiley MD Cardiology:STRONGLY ENCOURAGED TO STOP SMOKING; SMOKING CESSATION TECHNIQUES DISCUSSED. Cardiology:Weight loss advised. Cardiology:Having tr ouble tolerating CPAP pressures and mask. Adivsed to follow up with CPAP provider. Cardiology:Continues on Simvasta tin 20mg daily. Cardiology:Continues on Meloxicam and Tramadol as needed. Cardiology:Unchanged . Likely multifactoral related to obesity, deconditionig, and sleep apnea. Her PFTs were unremarkable. Cardiology:Significa nt leg and ankle swelling persists despite diruetics, compression stockings, and elevation which the patient has used for the past 6 months with minimal improvement. I did discuss EVLT vs medical management with the patient and her and she would like to continue with medical management. Cardiology:Blood pressure contro l is satisfactory. Cardiology :Weight loss advised. Fahad Wiley MD Cardiology :Continue s on Meloxicam and Tramadol as needed. Fahad Wiley MD Cardiology :Continue s on Simvastatin 20mg daily. Most recent LDL 88 which is satisfactory. Fahad Wiley MD Cardiology :Home sle ep study showed severe RICKIE. A titration study will be arranged. Fahad Wiley MD Cardiology :Leg kathy a persists. Recent venous doppler showed significant venous insufficiency. An order for compression stockings have been given to the patient. Fahad Wiley MD Cardiology :Blood pressure stabl e. Fahad Wiley MD Cardiology follow up :Persists. Will arrange venous doppler with reflux. Fahad Wiley MD Cardiology follow up :Continues on Meloxicam and Tramadol as needed. Fahad Wiley MD Cardiology follow up :Continues on Simvastatin 20mg daily. Fahad Wiley MD Cardiology follow up :Planned for home sleep study today. We await the results. Fahad Wiley MD Cardiology follow up :Blood pressure slightly elevated today at 140/60. The patient has been advised to monitor her blood pressure. Fahad Wiley MD Cardiology follow up :Improved but persists. Likely multifactoral related to obesity, deconditionig, and possible sleep apnea. Her PFTs were unremarkable. Her stress test in September showed no evidence of ischemia. Her BNP was normal. Fahad Wiley MD Cardiology:Blood pressure contro l is satisfactory. Fahad Wiley MD Cardiology:Patient r eports recent labs showed elevated cholesterol. She is now taking Simvastatin daily. We await blood results from your office. Fahad Wiley MD Cardiology:Off Metho trexate, steroids, and Enbrel. Continues on Meloxicam and Tramadol as needed. Fahad Wiley MD Cardiology:Will arrange home sle ep study. Fahad Wiley MD Cardiology:Rare epis odes of chest pain which resolve on their own. The last stress test was normal. The patient has been reassured. Fahad Wiley MD Cardiology:Shortness of breath on exertion with leg edema. Unclear etiology of her symptoms. The last echo in September was normal. Will check BNP, chest xray, and PFTs. Will start HCTZ 12.5mg and K 10meq daily. Fahad Wiley MD Cardiology follow up :STRONGLY ENCOURAGED TO STOP SMOKING; SMOKING CESSATION TECHNIQUES DISCUSSED. Fahad Wiley MD Cardiology follow up :On medicat ions. Fahad Wiley MD Cardiology follow up :On statin. Fahad Wiley MD Cardiology follow up :On steroids and Methotrexate. Follows rheumatology. Fahad Wiley MD Cardiology follow up :Blood pressure today was 146/90. She is on Amlodipine 10mg daily. She will continue to monitor her blood pressure. Fahad Wiley MD Cardiology follow up :Recent stress test showed no evidence of ischmeia. The likelihood of significant CAD is low. However, she has risk factors for CAD and if she continues to be symptomatic with chest pain, she will benefit from a cardiac cath. This has been discussed with her. Fahad Wiley MD Cardiology:On steroids and Metho trexate. Fahad Wiley MD Cardiology:On statin. Fahad orellana MD Cardiology:BP today: 140/90 Her updated medication list for this problem includes: Aspirin Adult Low Dose 81 Mg Oral Tablet Delayed Release (Aspirin) ..... 1 tab daily Amlodipine Besylate 10 Mg Oral Tablet (Amlodipine besylate) ..... 1 tab daily Fahad Wiley MD Cardiology:The hx is very consistent with CAD. She however has had neck surgery in the past and a cervical radiculopathy could give rise to very similar symptoms. However, she merits further cardiac workup and we will arrange a stress test and echo. Subl ntg has been given to use if she experiences these chest pains. Fahad Wiley MD Date Name PROTHROMBIN TIME WIT H INR CBC (INCLUDES DIFF/P LT) LIPID PANEL BASIC METABOLIC PANE L W/EGFR Venogram w/ IVUS - G C BASIC METABOLIC PANE L W/EGFR Venous Doppler Unila teral LLE VenaSeal Venous Doppler Bilat eral LE - Reflux Stress Regadenoson 6 minute walk test DLCO - 57044 FRC - 71369 FVC - 64590 Venous Doppler Unila teral RLE Arterial Duplex Bi-L ower EX Sleep Study Titratio n Venous Doppler Bilat eral LE - Reflux Sleep Study Home B TYPE NATRIURETIC P EPTIDE (BNP) X-Ray, Chest - Routi ne Complete Echo STR - Adenosine LIPID PANEL COMPREHENSIVE METABO LIC PANEL W/EGFR STR - Nuclear Complete Echo Mobile Cardiac Tele HISTORY OF PROCEDURES Procedure Date Procedure Name Provider Procedure Notes S tatus EKG Fahad Wiley MD complet ed EKG Fahad Wiley MD complet ed EKG Fahad Wiley MD complet ed EKG Fahad Wiley MD complet ed 6 minute walk test Fahad Wiley MD completed Spirometry Fahad Wiley MD complet ed FVC / MVV with bronchodilator - 79202 Fahad Wiley MD completed FRC - 05829 Fahad Wiley MD comple faustina SpO2 w/o 6min walk/titration Fahad Wiley MD completed SVC - 33472 Fahad Wiley MD comple faustina DLCO - 71746 Fahad Wiley MD compl eted EKG Fahad Wiley MD complet ed EKG Fahad Wiley MD complet ed EKG Fahad Wiley MD complet ed EKG Fahad Wiley MD complet ed EKG Fahad Wiley MD complet ed EKG Fahad Wiley MD complet ed EKG Fahad Wiley MD complet ed EKG Fahad Wiley MD complet ed FVC / MVV with bronchodilator - 21053 Fahad Wiley MD completed BLOOD COUNT HEMOGLOBIN Fahad Wiley MD completed FRC - 21219 Fahad Wiley MD comple faustina SpO2 w/o 6min walk/titration Fahad Wiley MD completed DLCO - 25980 Fahad Wiley MD compl eted EKG Fahad Wiley MD complet ed EKG Fahad Wiley MD complet ed Regadenoson, 4 units Fahad Wiley MD completed Cardiolite, 2 units Fahad Wiley MD completed SPECT Images Mane Johns MD complet ed Stress EKG Mane Johns MD completed EKG Fahad Wiley MD complet ed EKG Fahad Wiley MD complet ed
--- NOTE | 2024-11-18 15:01 | WPDPFTINT ---
PFT Procedure Performed PFT Procedure Performed Spirometry with Pre/Post Bronchodilator Plethysmography (Lung Vol) Diffusing Cap (DLCO) Flow Vol Loop PFT Interpretation This is a pulmonary function test with pre and post-bronchodilator spirometry, plethysmography and diffusing capacity. The test was performed and results interpreted in accordance with the 2019 and 2005 ATS/ERS Task Force guidelines respectively using the Global Lung Function Initiative-2012 reference equations. Patient demonstrated good effort and cooperation. Reproducibility criteria were met. The quality of the pre bronchodilator spirometry maneuver was Grade A and post bronchodilator spirometry maneuver was Grade B. Findings: Spirometry: There is decreased maximal expiratory airflow at all lung volumes with concave expiratory flow tracing. The contour the inspiratory flow tracing is normal. The pre bronchodilator FVC is 2.73 L, 95% predicted. The pre bronchodilator FEV1 is 1.90 L, 84% predicted. The pre bronchodilator FEV1: FVC ratio 69%. The post bronchodilator FVC is 2.92 L, representing a 7% increase. The post bronchodilator FEV1 is 2.01 L, representing a 6% increase. The post bronchodilator FEV1: FVC ratio 69%. Plethysmography: The total lung capacity is 6.64 L, 135% predicted. The functional residual capacity is 3.19 L, 115% predicted. The residual volume is 3.16 L, 154% predicted. The residual volume: Total lung capacity ratio is 48%. Diffusing capacity: The diffusing capacity unadjusted for hemoglobin and carboxyhemoglobin is 12.4, 60% predicted. The diffusing capacity adjusted for alveolar volume is 3.03, 69% predicted. Impression: The spirometry is normal without evidence of an obstructive abnormality. There is no significant improvement after inhaling a single dose of albuterol. The total lung capacity is increased with a normal residual volume: Total lung capacity ratio consistent with large lungs. The diffusing capacity unadjusted for hemoglobin and carboxyhemoglobin is moderately decreased and remains mildly decreased when adjusted for alveolar volume. There are no prior studies for comparison
== END 2024-11-18 12:21 | disposition home or self-care (01) ==
PROVIDERS: PCP Internal Medicine; Visit Provider Internal Medicine Pulmonary Disease
DX: J44.9 Chronic obstructive pulmonary disease, unspecified (principal); R06.00 Dyspnea, unspecified; T78.40XA Allergy, unspecified, initial encounter; D89.9 Disorder involving the immune mechanism, unspecified; M06.9 Rheumatoid arthritis, unspecified
CPT/HCPCS: 94060; 94726; 94729

== ENCOUNTER 2024-11-23 12:11 | Outpatient (CLI) | payer MEDICARE, SELFPAY ==
--- NOTE | 2024-11-23 | ECHO_ITS ---
Patient Info Name: Autumn Rodriguez Age: 68 years : 1955 Gender: Female Ht: 63 in Wt: 255 lbs BSA: 2.34 m2 HR: 85 bpm BP: 191 / 87 mmHg Technical Quality: Poor Exam Date: 11/23/2024 12:43 PM Exam Location: Echo Lab Patient Status: Outpatient Admit Date: 11/23/2024 Staff Ordering Physician: Rickey Felix MD Mechanical Laboratory Technician: Hilary Hull RDCS Attending Provider: Rickey Felix MD Referring Physician: Rosemary PALMER; Exam Type: CA echo doppler color flow Study Info Indications - COUGH - DYSPNEA - COPD Complete two-dimensional, color flow and Doppler transthoracic echocardiogram is performed. Reason for Poor Study: poor echocardiographic windows Summary 1. Complete two-dimensional, color flow and Doppler transthoracic echocardiogram is performed. 2. Technically suboptimal study due to poor sonographic images. 3. Left ventricular chamber dimension is normal. 4. Left ventricular systolic function is normal, estimated at 60-65%. 5. The left ventricular diastolic function is normal. 6. E/e' 3 is not elevated. 7. The aortic root size at the sinus of Valsalva is borderline dilated at 4.0 cm. Left Ventricle E/e' 3 is not elevated. Technically suboptimal study due to poor sonographic images. Left ventricular chamber dimension is normal. Left ventricular systolic function is normal, estimated at 60-65%. The left ventricular diastolic function is normal. Right Ventricle Right ventricular chamber dimension is not well visualized. Left Atria Left atrial chamber dimension is normal. Right Atria Right atrial chamber dimension is not well visualized. Aortic Valve The aortic valve is trileaflet. There is no aortic valve stenosis. There is no aortic valve regurgitation. Pulmonic Valve The pulmonic valve is not well visualized. Mitral Valve There is no mitral valve stenosis. There is no mitral valve regurgitation. Tricuspid Valve There is no tricuspid valve regurgitation. Pericardium/Pleural There is no pericardial effusion. Inferior Vena Cava Normal inferior vena cava with >50% collapse upon inspiration consistent with normal right atrial pressure, 5 mmHg. Aorta The aortic root size at the sinus of Valsalva is borderline dilated at 4.0 cm. Left Ventricular Outflow Tract Name Value Normal LVOT 2D LVOT Diameter 2.3 cm LVOT Doppler LVOT Peak Gradient 5 mmHg LVOT Mean Gradient 3 mmHg LVOT VTI 26 cm LVOT VTI/AV VTI Ratio 1.0 LVOT Stroke Volume 108 ml LVOT CO 6.9 l/min LVOT CI 3.0 l/min/m2 Pulmonic Valve Name Value Normal RVOT Doppler RVOT Peak Gradient 3 mmHg PV Doppler PV Peak Gradient 4 mmHg Mitral Valve Name Value Normal MV Doppler MV Decel [place] 228 cm/s2 MV PHT 41 ms MV Area (PHT) 5.4 cm2 4.0-5.0 MV Diastolic Function MV E Peak Velocity 32 cm/s MV A Peak Velocity 82 cm/s MV E/A 0.4 MV Decel Time 141 ms MV Annular TDI MV E/e' (Septal) 4.1 <=8.0 MV E/e' (Lateral) 3.6 <=8.0 MV E/e' (Average) 3.9 Tricuspid Valve Name Value Normal Estimated PAP/RSVP RA Pressure 5 mmHg <=5 Aorta Name Value Normal Ascending Aorta Ao Root Diameter (MM) 4.0 cm Ao Root Diam Index (MM) 1.7 cm/m2 Aortic Valve Name Value Normal AV Doppler AV Peak Velocity 141 cm/s AV Peak Gradient 8 mmHg AV Mean Gradient 5 mmHg AV VTI 27 cm AV Area (Cont Eq VTI) 4.0 cm2 >=3.0 AV Area (Cont Eq Jr) 3.4 cm2 AV Regurgitation 2D LVOT Area 4.1 cm2 Ventricles Name Value Normal LV Dimensions 2D/MM LVOT Diameter 2.3 cm Atria Name Value Normal LA Dimensions LA Dimension (MM) 2.4 cm 2.7-3.8 Report Signatures
--- OUTSIDE RECORDS SUMMARY | 2024-11-23 13:19 | XMS_ITS | CONTINUITY OF CARE DOCUMENT ---
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 Name Role Phone Saurabh MARTINO, Fahad Unavailable ANKITA MARTINO, MASON Unavailable [phone] MASON LUCIANO MD Unavailable [phone] PROBLEMS Condition Status Date Provider Notes Other symptoms involving cardiovascular system completed - Fahad Wiley MD Family History of Hypertension: completed - Kye Wiley MD Edema completed - Fahad Wiley MD Palpitations active Fahad Wiley MD Chest pain- nml stress 09/2018 active Digna Wiley MD Anxiety disorder generalized active Katy Wiley MD Hyperlipidemia, unspecified active [facility] Gonzalooremarguerite Tobacco abuse active Fahad Wiley [...] In-person encounter Office Visit Isidro Becker MD [facility] Leg edema - In-person encounter Office Visit Isidro Becker MD [facility] - In-person encounter Office Visit Isidro Becker MD [facility] - In-person encounter Office Visit Isidro Becker MD [facility] - In-person encounter Office Visit Fahad Wiley MD [facility] - In-person encounter Office Visit Fahad Wiley MD [facility] - In-person encounter Office Visit Fahad Wiley MD [facility] - In-person encounter Office Visit Fahad Wiley MD [facility] - In-person encounter Office Visit Fahad Wiley MD [facility] - In-person encounter Office Visit Fahad Wiley MD [facility] - In-person encounter Office Visit Fahad Wiley MD [facility] - In-person encounter Office Visit Fahad Wiley MD [facility] - In-person encounter Office Visit Fahad Wiley MD [facility] PVD, absent pedal pulsesPeripheral neuropathy - In-person encounter Office Visit Fahad Wiley MD [facility] - In-person encounter Office Visit Fahad Wiley MD [facility] - In-person encounter Office Visit Fahad Wiley MD [facility] EdemaOSA - severe, on CPAPVenous insufficiency - In-person encounter Office Visit Fahad Wiley MD [facility] - In-person encounter Office Visit Fahad Wiley MD [facility] Chest pain- nml stress 09/2018Shortness of breathOSA - severe, on CPAP - In-person encounter Office Visit Fahad Wiley MD [facility] Obesity - In-person encounter Office Visit Fahad Wiley MD [facility] Other symptoms involving cardiovascular systemFamily History of Hypertension:Tobacco abuseHypertensionRheumatoid arthritis - In-person encounter Office Visit Fahad Wiley MD [facility] Other symptoms involving cardiovascular systemPalpitationsChest pain- nml stress 09/2018Anxiety disorder generalizedHyperlipidemia, unspecified VITAL SIGNS Date Observation Value Provider Body Mass Index (Ratio) 41.71 kg/m2 Eddy Becker MD blood pressure, cuff size large Va sharmila Gama blood pressure, diastolic 74 mm[Hg] Va sharmila Gama blood pressure, systolic 146 mm[Hg] [facility] yunior Gama oxygen saturation, oximetry [...] blood pressure, diastolic 60 mm[Hg] Geeta doll [place] blood pressure, systolic 122 mm[Hg] Eric mojica [place] oxygen saturation, oximetry 96 % Sera Gama respiratory rate E&M 16 /min Dot bonilla Gama pulse rate 86 /min Sera Amna ambriz weight E&M 249 [lb_av] Sera Aman [...] nguyễn Body Mass Index (Ratio) 43.59 kg/m2 Sj Wiley MD blood pressure, diastolic 86 mm[Hg] [...] blood pressure, systolic 164 mm[Hg] Sanna leylaa Latif pulse rate 90 /min Vanessa Campbel l [...] [place] blood pressure, systolic 131 mm[Hg] Ton [facility] respiratory rate E&M 16 /min [facility] oxygen saturation, oximetry 94 % [facility] pulse rate 96 /min [facility] weight E&M 237 [lb_av] [facility] height E&M 64 [in_i] [facility] Body Mass Index (Ratio) 40.68 kg/m2 Dennys n [facility] pulse rate 90 /min [facility] blood pressure, diastolic 74 mm[Hg] [facility] blood pressure, systolic 136 mm[Hg] [facility] oxygen saturation, oximetry 95 % [facility] weight E&M 237 [lb_av] Suni Block respiratory rate E&M 16 /min [facility] Block blood pressure, resting Yes [facility] height E&M 64 [in_i] [facility] Body Mass Index (Ratio) 39.99 kg/m2 Sj Wiley MD blood pressure, diastolic 92 mm[Hg] Ch astity Chrissy blood pressure, systolic 142 mm[Hg] Ale stity Chrissy oxygen saturation, oximetry 96 % Chastity Chrissy pulse rate 84 /min Chastity Chrissy respiratory rate E&M 16 /min Diogo Lowe weight E&M 233 [lb_av] Chastity Chrissy height E&M 64 [in_i] [facility] Body [facility] (Ratio) 40.85 kg/m2 Sj [...] Vanessa Interiano l height E&M 64 [in_i] Vanessa Pichardobel l Body Mass Index (Ratio) 40.85 kg/m2 Sj Wiley MD blood pressure, diastolic 70 mm[Hg] Ki rain [place] blood pressure, systolic 130 mm[Hg] Malick maldonado [place] oxygen saturation, oximetry 96 % [facility] respiratory rate E&M 16 /min [facility] pulse rate 84 /min [facility] weight E&M 238 [lb_av] [facility] [place] height E&M 64 [in_i] Sara [place] Body Mass Index (Ratio) 40.33 kg/m2 Sj Wiley MD blood pressure, diastolic 90 mm[Hg] Da hakan Tiffanie blood pressure, systolic 146 mm[Hg] Dac ia Tiffanie oxygen saturation, oximetry 95 % Brittnee Tfifanie respiratory rate E&M 16 /min Brittnee V oss pulse rate 92 /min Brittnee Tiffanie weight E&M 235 [lb_av] Brittnee Tiffanie height E&M 64 [in_i] Brittnee Moreno Body Mass Index (Ratio) 39.13 kg/m2 Sj Wiley MD blood pressure, diastolic 90 mm[Hg] [facility] blood pressure, systolic 140 mm[Hg] Malick maldonado [place] oxygen saturation, oximetry 93 % [facility] respiratory rate E&M 16 /min [facility] pulse rate 82 /min [facility] weight E&M 228 [lb_av] [facility] height E&M 64 [in_i] [facility] Body Mass Index (Ratio) 36.90 kg/m2 Anea facundo [facility] blood pressure, diastolic, left arm 99 mm [Hg] Aneatris [facility] blood pressure, systolic, left arm 175 mm [Hg] Aneatris [facility] blood pressure, diastolic, right arm 107 mm[Hg] Aneatris [facility] blood pressure, systolic, right arm 168 m m[Hg] Aneatris [facility] blood pressure, diastolic 107 mm[Hg] An eatris [facility] blood pressure, systolic 168 mm[Hg] Ane atricathie [facility] pulse rate 97 /min Madyatris [facility] oxygen saturation, oximetry 98 % Madyatris [facility] respiratory rate E&M 18 /min Imanii cathie Marroquin weight E&M 215 [lb_av] [facility] height E&M 64 [in_i] [facility] ALL[facility] Allergy Name Onset Date Reaction Criticality [...] 01/28 - 06/06 Fahad Wiley MD [id number] UNIT ORAL CAPSULE completed take 1 caps [...] daily 11/08 - 11/16 Fahad Wiley MD [place]-3 Fish Oil 300-1,000 mg capsule active 1 [...] history, tot al pack/day 1 pkg daily Sera Gama cigarette use yes Sera Martinez gonzalo smoking status Current every da y [...] tot al pack/day 1 pkg daily Alyson hCa cigarette use yes Alyson Cha smoking status [...] MD drug use no Elizabeth Ventimig luci [facility] alcohol use no Elizabeth Ventimig luci [facility] Exercise counseling yes Maddison vermaok smoking/tobacco cess ation, patient education and counseling [...] Sanchez drug use no Elizabeth Ventimig luci [employer] alcohol use no Elizabeth Ventimig luci [facility] smoking history, tot al pack/day 1 pkg [...] a Tamela [place] [facility], date started [facility], tot [facility] pack/[facility], tot al pack/day [facility] cigarette use yes [facility] smoking status Current every da y smoker [...] a Suni [place] smoking, date started 1972 [facility] smoking history, tot al pack/year 45 [facility] smoking history, tot al pack/day 1 [facility] cigarette use yes [facility] smoking status Current every da y smoker [facility] social history E&M S moking History: [...] [place] smoking, date started 1972 Cari everett [place] smoking history, tot al pack/year 45 Sara [place] smoking history, tot al pack/day 1 Sara [place] cigarette use yes Sara [place] smoking status Current every da y smoker Sara [place] social history E&M S moking History: P [...] MD number of grandchildren Fahad Wiley MD [facility] smoking/tobacco cess ation, patient education and counseling yes [facility] smoking, date started 1972 Kalpana n [place] smoking history, tot al pack/year 45 [facility] smoking history, tot al pack/day 1 [facility] cigarette use yes [facility] smoking status Current every da y smoker [facility] smoking history, tot al pack/year 45 [...] Payer name Policy type / Coverage type [place] red constitution party ID AARP MEDICARE ADVANTAGE HMO-POS HMO [id number] ADVANCE DIRECTIVES Name Date DISCUSSED - NO DECISION MADE TREATMENT PLAN Date Name Performer [id number],S, Isidro Becker MD [id number],C,T he Patient was reencouraged to stop smoking. Pt reports it to be same as before Isidro Becker MD [id number],C,H er left leg is worse than right and she is having pain in her left W ill plan for R heart cath and venogram with IVUS Isidro Becker MD [id number],C,T he patient is using CPAP on a regular basis. The patient has been benefiting from therapy and should continue use. Isidro Becker MD [id number],S, Isidro Becker MD [id number],S, B P today: 147/86 P rior BP: [...] tablet once a day Isidro Becker MD [id number],S,S he is s/p left GSV closure. She still has a bit of swelling and will try to add a diuretic. Isidro Becker MD [id number],S,S he had venous doppler done that showed: 1 . No evidence of a deep vein thrombosis of the lower extremities bilaterally. 2. Significant venous insufficiency of the great saphenous vein bilaterally. She has worn compression socks without relief and we will do her left GSV Isidro Becker MD [id number],S, Isidro Becker MD [id number],C,l ifestyle modification encouraged Fahad Wiley MD [id number],C, H er updated medication list for this problem includes: Simvastatin 20 Mg Tablet (Simvastatin) ..... 1 tablet once a day Fahad Wiley MD [id number],C,T he patient is using CPAP on a regular basis. The patient has been benefiting from therapy and should continue use. Fahad Wiley MD [id number],C,S he continues to have pain with minimal ambulation and significant swelling. She had venous doppler done that showed 1 . No evidence of a deep vein thrombosis of the lower extremities bilaterally. 2. Significant venous insufficiency of the great saphenous vein bilaterally. will have her see Dr. Becker for further intervention. Fahad Wiley MD [id number],C,B lood pressure 185/97 W ill increase losartan from 50 mg a day to 100 mg a day w ill plan RPM Fahad Wiley MD [id number],S, S JOÃOLY ENCOURAGED TO STOP SMOKING; SMOKING CESSATION TECHNIQUES DISCUSSED. Suni Miranda [id number],C,l ifestyle modification encouraged. Elizabeth Burleson [facility] [id number],C,B lood pressure still not at goal. Will [...] 1 tablet once a day Elizabeth Burleson [facility] [id number],C,S he continues to have pain with minimal [...] and diuretic at this time. Elizabeth Burleson [employer] MA[employer] [id number],W, I n spite of being on 900mg of gabapentin, continues to be symptomatic with pain, numbness, and tingling. Follows Dr. Lino and he due to see her soon. Fahad Wiley MD [id number],S, F karie rheumatology, Dr. Elder in [place]. Continues on Plaquenil. Fahad Wiley MD [id number],S, C ontinues on Simvastatin. Fahad Wiley MD [id number],S, N o recurrence. Fahad Wiley MD [id number],S, H as been utilizing compression stockings without much improvement in her leg pain or swelling. Discussed possibility of doing venogram and/or venaseal. As she is agreeable, we will check venous dopplers and then refer her for further workup. She may also benefit from amlodipine reduced to 5mg in case it is contributing to the swelling. Fahad Wiley MD [id number],S, T he patient is using CPAP on a regular basis. The patient has been benefiting from therapy and should continue use. Fahad Wiley MD [id number],S, H er effort-related SOB persists and she continues using albuterol inhaler as needed. Fahad Wiley MD [id number],S, S ALYSSA ENCOURAGED TO STOP SMOKING; SMOKING CESSATION TECHNIQUES DISCUSSED. Fahad Wiley MD [id number],W, B lood pressure is elevated today. Continues on amlodipine. Advised routine home monitoring at least 2-3 times a week. We aim for a BP of 140/80 or lower. Fahad Wiley MD [id number],S, N o recurrence. Fahad Wiley MD [id number],S,F ollows rheumatology. Continues on Plaquenil. Fahad Wiley MD [id number],C,T he patient is using CPAP on a regular basis. The patient has been benefiting from therapy and should continue use. Fahad Wiley MD [id number],S,O n Gabapentin follows neurology. Fahad Wiley MD [id number],B,N o recurrence. Fahad Wiley MD [id number],S,C ontinues on Simvastatin. Fahad Wiley MD [id number],B,B lood pressure control is satisfactory. Continues on amlodipine. Fahad Wiley MD [id number],S,H er SOB persists and she continues using albuterol inhaler as needed. Based on the results of her PFT showing moderately obstructed airways and asthma, she will benefit from pulmonary evaluation. Fahad Wiley MD [id number],S, F ollows rheumatology. Continues on Plaquenil. Fahad Wiley MD [id number],C, S he continues to have SOB with exertion. Her 6 minute walk test and stress test were normal. PFT results are pending. If PFTs are normal, we will send her to a manufacturing supervisor 2nd shift for further workup. For symptom relief until PFTs are finished, we will prescribe her an albuterol inhaler. Fahad Wiley MD [id number],S, T he patient is using CPAP on a regular basis. The patient has been benefiting from therapy and should continue use. Fahad Wiley MD [id number],S, H as been utilizing compression stockings. Last [...] of active hypodermic bleeding. Fahad Wiley MD [id number],S, O n Gabapentin follows neurology. Fahad Wiley MD [id number],S, N o recurrence. Fahad Wiley MD [id number],S, S TROFAVIOLALY ENCOURAGED TO STOP SMOKING; SMOKING CESSATION TECHNIQUES DISCUSSED. Fahad Wiley MD [id number],S, C ontinues on Simvastatin. Fahad Wiley MD [id number],C, E levated BP at 155/85 today. Continues on Amlodipine. Advised reduced sodium intake and routine monitoring of the blood pressure. We aim for less than 130/80. Fahad Wiley MD [id number],C, N o recurrence. Fahad Wiley MD [id number],C, T he patient is using CPAP on a regular basis. The patient has been benefiting from therapy and should continue use. Fahad Wiely MD [id number],C, E levated BP at 154/86 today. Continues on Amlodipine. Fahad Wiley MD [id number],C, H as been utilizing compression stockings. Last [...] of active hypodermic bleeding. Fahad Wiley MD [id number],C,S he has had worsening SOB, where she has to take breaks to regain her breath when walking. Likely multifactoral related to obesity, deconditionig, and sleep apnea. Will schedule a PFT with a 6 minute walk test and a stress test. Fahad Wiley MD [id number],C,T he patient is using CPAP on a regular basis. The patient has been benefiting from therapy and should continue use. Fahad Wiley MD [id number],C,C ontinues on Simvastatin. Fahad Wiley MD [id number],C,P rior BP: 155/88 (06/06/2020). Continues on Amlodipine. Advised routine monitoring of the BP daily. Fahad Wiley MD [id number],C,S welling improved on Lasix and with compression [...] Dr. Becker for further intervention. Elizabeth Burleson [facility] Cardiology:Blood pre ssure 185/97 W ill increase losartan from 50 mg a day to 100 mg a day w ill plan RPM Fahad Wiley MD Cardiology: Cathie SHAH ENCOURAGED TO STOP SMOKING; SMOKING CESSATION TECHNIQUES DISCUSSED. Suni Miranda Cardiology:lifestyle modificatio n encouraged. Elizabeth Burleson [facility] Cardiology:Blood pre ssure still not at goal. [...] 1 tablet once a day Elizabeth Burleson [facility] Cardiology:She cristela nues to have pain with [...] diuretic at this time. Elizabeth Sarah Beth [facility] Cardiology: I n spite of being on 900mg of gabapentin, continues to be symptomatic with pain, numbness, and tingling. Follows Dr. Lino and he due to see her soon. Fahad Wiley MD Cardiology: Ayden tiwari rheumatology, Dr. Elder in [place]. Continues on Plaquenil. Fahad Wiley MD Cardiology: [...] Wiley MD Cardiology: N o recurrence. Fahad iWley MD Cardiology:Follows r heumatology. Continues on Plaquenil. [...] normal, we will send her to a manufacturing supervisor 2nd shift for further workup. For symptom relief until [...] Plaquenil. Serafin Solorio Telehealth:Continues on Simvasta tin. [facility]:The manohar nt is using CPAP on a regular basis. The patient has been benefiting from therapy and should continue use. [facility] Tele[facility]:Continues on Losartan 25mg and Amlodipine 10mg [...] Will increase Potassium to 20meq daily. Fahad iWley MD Cardiology follow up :No recurrence. She [...] Regadenoson 6 minute walk test DLCO - 19627 FRC - 35515 FVC - 80429 Venous Doppler Unila teral RLE Arterial Duplex [...] ed FVC / MVV with bronchodilator - 22410 Fahad Wiley MD completed FRC - 93401 Fahad Wiley MD comple faustina SpO2 w/o 6min walk/titration Fahad Wiley MD completed SVC - 86407 Fahad Wiley MD comple faustina DLCO - 92172 Fahad Wiley MD compl eted EKG Fahad Wiley MD complet ed EKG Fahad Wiley MD complet ed EKG Fahad Wiley MD complet ed EKG Fahad Wiley MD complet ed EKG Fahad Wiley MD complet ed EKG Fahad Wiley MD complet ed EKG Fahad Wiley MD complet ed EKG Fahad Wiley MD complet ed FVC / MVV with bronchodilator - 44973 Fahad Wiley MD completed BLOOD COUNT HEMOGLOBIN Fahad Wiley MD completed FRC - 66058 Fahad Wiley MD comple faustina SpO2 w/o 6min walk/titration Fahad Wiley MD completed DLCO - 18586 Fahad Wiley MD compl eted EKG Fahad Wiley MD complet ed EKG Fahad Wiley MD complet ed Regadenoson, 4 units Fahad Wiley MD completed Cardiolite, 2 units Fahad Wiley MD completed SPECT Images Mane Johns MD complet ed Stress EKG Mane Johns MD completed EKG Fahad Wiley MD complet ed EKG Fahad Wiley MD complet ed
--- OUTSIDE RECORDS SUMMARY | 2024-11-23 13:20 | XMS_ITS | Data Portability ---
Author Organization [facility], Main Office Address [address] [place] [address] Care Team Providers Care Art Director Name Role Phone MASON PAUL Primary Care Provider Assessment Encounter Date Assessment Date Assessment LastModified by Organization Details LastModified Time 02/09/2024 02/09/2024 Assessment: Severe OSAHS, AHI = 42 Plan: The following were reviewed and explained to the patient: primary care/referral note Chest CT 05/12/22 lingular and BLL atelectasis Chest CT 05/13/23 no nodules PFT 01/09/22 FEV1 2.30 L (96%), BD 970 mL = 73%, TLC 4.53 L (89%), RV 1.60 L (77%), DLCO 80%, DLCO/VA 88% [facility] home sleep study 02/10/19 AHI = 42 [facility] titration sleep study 03/27/19 sleep onset = 11.5 minutes, REM onset = 158 minutes, Respironics small DreamWear nasal pillows @ 14 cmH2O, PLMI = 0.0 PAP compliance downloaded and interpreted x 20 minutes. Data reviewed and explained to the patient. Average apnea/hypopnea index (AHI) is 3.7. Patient used PAP > 4 hours 35% of the time. PAP is set at 14 cmH2O. PAP will remain at 14 cmH2O. Keep humidifier at level 5. Oxygen supplementation: none Patient is benefiting from PAP therapy. Encouraged patient to maintain PAP use more than 70% of the time. Statement of PAP use and benefits will be sent to the home care store. Educated the patient on problems and solutions associated with positive airway pressure (PAP) use. Difficulty tolerating pressure, mask leaks, intolerance of interface, nasal congestion, claustrophobic response, dry mouth, and unintentional mask removal during sleep were covered. Patient's mask leaks air. We will ensure the mask is situated properly. Patient can wear protective eye covering during sleep, and the mask can be resized. Patient experiences nasal congestion. Patient will use nasal saline spray before starting PAP, use heated PAP humidifier, clean/air dry humidifier reservoir daily, use nasal steroid spray, use ipratropium bromide nasal spray if rhinitis/rhinorrhe a is present or obtain an oronasal/oral interface. Provided the patient with a list of local home care stores where positive airway pressure (PAP) units, accoutrement, and services are available. Home care store selection is based on patient's insurance carrier. Patient will setup an appointment with [facility] for supplies and pressure adjustments. A major predictor of success with use of PAP is follow-up with both the respiratory supplier and the treating physician. The download results can show the treating physician information about adherence to treatment, residual AHI while on treatment and presence of large mask leakage. This information is especially helpful if the patient has residual sleepiness despite treatment. General information on sleep disordered breathing, evaluation of sleep disordered breathing, treatment with PAP therapy, and living with PAP therapy were covered. We discussed with the patient the impact of weight on: Sleep disordered breathing Hypertension Hyperlipidemia MARY Thoracic spondylosis Lumbar DDD Right great saphenous vein insufficiency We discussed with the patient the benefit of PAP therapy on: Sleep disordered breathing Anxiety/Depression Rhinitis Hypertension MARY Educated the patient on sleep hygiene measures. Relaxing rituals to rest easy, understanding foods with positive and negative impact on sleep, creating a peaceful sleep environment, timing of exercise, using herbal sleep aids, and practicing sleep-friendly meditation were covered. To determine how much sleep is needed, the patient will assess where she falls on the spectrum, examine what lifestyle factors such as work schedules and stress are affecting the quality and quantity of sleep. In general, adults need 7-9 hours of sleep. Educated the patient regarding foods that promote sleep. These include but are not limited to cherries, bananas, toast, oatmeal, and warm milk. Educated the patient regarding foods and drinks to avoid before bedtime. These include but are not limited to aged cheese, chocolate, spicy foods, tomato-based sauces, soy, ginseng tea and processed meat. Advocated influenza vaccination annually and pneumonia vaccination TIM. Advocated weight loss through diet and exercise. Patient's ideal body weight according to height and gender is up to 125 lbs. Encouraged patient to adjust caloric intake to maintain/achieve ideal body weight, emphasizing on fruits, vegetables, whole grains, and fat-free or low-fat products. These include lean meats, poultry, fish, beans, eggs, and nuts and foods that are low in saturated fats, trans-fats, cholesterol, salt (sodium), and glycemic index. Stressed the importance of regular exercise up to the patient's capacity limits. In this case, we recommend 20 min daily walking, 2 days a week of resistance training. Patient to monitor BP daily and bring records to PCP for further management. Follow-up: 1 year, January 2025 Not available 02/09/2024 16:00:52 11/09/2024 11/09/2024 Assessment: Hypertension Rheumatoid arthritis Mild ACO Severe OSAHS, AHI = 42 Plan: The following were reviewed and explained to the patient: Chest CT 05/12/22 lingular and BLL atelectasis Chest CT 05/13/[address] 06/03/24 no nodules PFT 01/09/22 FEV1 2.30 L (96%), BD 970 mL = 73%, TLC 4.53 L (89%), RV 1.60 L (77%), DLCO 80%, DLCO/VA 88% [facility] home sleep study 02/10/19 AHI = 42 [facility] titration sleep study 03/27/19 sleep onset = 11.5 minutes, REM onset = 158 minutes, Respironics small DreamWear nasal pillows @ 14 cmH2O, PLMI = 0.0 General information on COPD was covered. Educational video was shown. The video explained what COPD is and how it affects breathing. Self-care skills such as not smoking, using medications as prescribed, oxygen therapy, and knowing when to contact the healthcare provider are covered. Diaphragmatic breathing and pursed lip breathing are explained and demonstrated. Positive lifestyle changes are introduced. Following these self-care skills will help in the management of COPD so the patient can stay out of the hospital. Cough/Dyspnea workup will be done as follows: Respiratory allergen panel for [facility] Serum IgE Serum total IgG, IgG1, IgG2, IgG3, IgG4 Grqle-9-chpawglgyi n phenotype and level TB stimulated gamma interferon B-type natriuretic peptide (BNP) Eosinophil count Complete pulmonary function testing (PFT) 2-D echocardiogram to rule out pulmonary hypertension Advised to continue not to smoke. Start albuterol HFA as needed. The patient does not know how to accurately administer the inhaler. Today, the patient was shown how to take this medication. The proper technique for delivering this medication was instructed. The patient expressed a clear understanding and demonstrated back how to use this medication. Without the proper technique, the patient will not reap the benefits of the treatment as the contents of the inhaler will not reach the lower airways as intended to be. Adherence to therapy is advocated. Nonadherence may lead to treatment failure, further progression of the condition, and other complications. Hospitals admissions are often the result of individuals not taking prescription medications accurately. Alternatively, greater adherence to medication regimens have shown to lower rates of hospitalization and decrease total medical costs in patients with chronic medical conditions. PAP is set at 14 cmH2O. PAP will remain at 14 cmH2O. Keep humidifier at level 5. Oxygen supplementation: none Patient is benefiting from PAP therapy. Encouraged patient to maintain PAP use more than 70% of the time. Statement of PAP use and benefits will be sent to the home care store. ResMed Air Sense 11 auto set unit with heated humidifier, supplies and nasal mask @ 14 cmH2O ordered. Further adjustment will be based on clinical response. Educated the patient on problems and solutions associated with positive airway pressure (PAP) use. Difficulty tolerating pressure, mask leaks, intolerance of interface, nasal congestion, claustrophobic response, dry mouth, and unintentional mask removal during sleep were covered. Patient's mask leaks air. We will ensure the mask is situated properly. Patient can wear protective eye covering during sleep, and the mask can be resized. Patient experiences nasal congestion. Patient will use nasal saline spray before starting PAP, use heated PAP humidifier, clean/air dry humidifier reservoir daily, use nasal steroid spray, use ipratropium bromide nasal spray if rhinitis/rhinorrhe a is present or obtain an oronasal/oral interface. Provided the patient with a list of local home care stores where positive airway pressure (PAP) units, accoutrement, and services are available. Home care store selection is based on patient's insurance carrier. Patient will setup an appointment with [facility] for supplies and pressure adjustments. A major predictor of success with use of PAP is follow-up with both the respiratory supplier and the treating physician. The download results can show the treating physician information about adherence to treatment, residual AHI while on treatment and presence of large mask leakage. This information is especially helpful if the patient has residual sleepiness despite treatment. General information on sleep disordered breathing, evaluation of sleep disordered breathing, treatment with PAP therapy, and living with PAP therapy were covered. We discussed with the patient the impact of weight on: Sleep disordered breathing Hypertension Hyperlipidemia MARY Thoracic spondylosis Lumbar DDD Right great saphenous vein insufficiency We discussed with the patient the benefit of PAP therapy on: Sleep disordered breathing Anxiety/Depression Rhinitis Hypertension MARY Educated the patient on sleep hygiene measures. Relaxing rituals to rest easy, understanding foods with positive and negative impact on sleep, creating a peaceful sleep environment, timing of exercise, using herbal sleep aids, and practicing sleep-friendly meditation were covered. To determine how much sleep is needed, the patient will assess where she falls on the spectrum, examine what lifestyle factors such as work schedules and stress are affecting the quality and quantity of sleep. In general, adults need 7-9 hours of sleep. Educated the patient regarding foods that promote sleep. These include but are not limited to cherries, bananas, toast, oatmeal, and warm milk. Educated the patient regarding foods and drinks to avoid before bedtime. These include but are not limited to aged cheese, chocolate, spicy foods, tomato-based sauces, soy, ginseng tea and processed meat. Advocated influenza vaccination annually and pneumonia vaccination TIM. Advocated weight loss through diet and exercise. Patient's ideal body weight according to height and gender is up to 125 lbs. Encouraged patient to adjust caloric intake to maintain/achieve ideal body weight, emphasizing on fruits, vegetables, whole grains, and fat-free or low-fat products. These include lean meats, poultry, fish, beans, eggs, and nuts and foods that are low in saturated fats, trans-fats, cholesterol, salt (sodium), and glycemic index. Stressed the importance of regular exercise up to the patient's capacity limits. In this case, we recommend 20 min daily walking, 2 days a week of resistance training. Patient to monitor BP daily and bring records to PCP for further management. Follow-up: 1 week after PFT and 2-D echocardiogram Not available 11/09/2024 17:41:36 Plan of Treatment Reminders Order Date Submit Date Provider Last Modified By Organization Details Last Modified Time Details Appointments None recorded. Lab lipid panel, serum 2023 024 [email or web address] [facility] Outpatient Lab, [address] [place], [address], 4 17:15:04 CMP, serum or plasma [email or web address] [place] [address] Outpatient Lab, [address] [place], [address], 4 17:15:04 TSH, serum or plasma [id number] [place] [address] Outpatient Lab, [address] [place], [address], 4 17:15:04 T4, free, serum [email or web address] [place] [address] Outpatient Lab, [address] [place], [address], 4 17:15:04 CBC w/ auto diff 2023 024 [email or web address] [facility] Outpatient Lab, [address] [place], [address], 4 17:15:03 vitamin D, 25-hydroxy , total, serum [id number] [place] [address] Outpatient Lab, [address] [place], [address], 4 09:51:46 lipid panel, serum 2023 024 [facility] Outpatient Lab, [address] [place], [address], 4 13:16:05 CMP, serum or plasma 2023 024 [facility] Outpatient Lab, [address] [place], [address], 4 13:16:21 TSH, serum or plasma 2023 024 [facility] Outpatient Lab, [address] [place], [address], 4 13:46:22 T4, free, serum 2023 024 [facility] Outpatient Lab, [address] [place], [address], 4 13:40:40 vitamin B12, serum 2023 024 [facility] Outpatient Lab, [address] [place], [address], 4 14:18:19 magnesium, blood [id number] [place] [address] Outpatient Lab, [address] [place], [address], 4 09:51:46 CBC w/ auto diff 2023 024 [facility] Outpatient Lab, [address] [place], [address], 4 13:08:53 HbA1c (hemoglobi n A1c), blood 2024 025 [facility] Outpatient Lab, [address] [place], [address], 5 04:39:04 lipid panel, serum 2024 025 [facility] Outpatient Lab, [address] [place], [address], 5 04:39:03 CMP, serum or plasma 2024 025 [facility] Outpatient Lab, [address] [place], [address], 5 04:39:03 TSH, serum or plasma 2024 025 [facility] Outpatient Lab, [address] [place], [address], 5 04:39:03 T4, free, serum 2024 025 [facility] Outpatient Lab, [address] [place], [address], 5 04:39:04 CBC w/ auto diff 2024 025 [facility] Outpatient Lab, [address] [place], [address], 5 04:39:03 alpha-1-an titrypsin (aat) phenotype, serum 2024 025 [facility], [address] [place], [address], 5 04:05:50 BNP (B-type natriureti c peptide), serum or plasma 2024 025 [facility] Outpatient Lab, [address] [place], [address], 5 04:05:51 ige, total, serum 2024 025 [facility] Outpatient Lab, [address] [place], [address], 5 04:05:51 tb (M tuberculos is), ifn-gamma gisel, blood 2024 025 [facility] Outpatient Lab, [address] [place], [address], 5 04:05:52 igg subclasses 1+2+3+4, serum 2024 025 [facility] Outpatient Lab, [address] [place], [address], 5 04:05:52 respirator y allergen panel, [facility] A, serum 2024 025 [facility] Outpatient Lab, [address] [place], [address], 5 04:05:52 respirator y allergen panel - [facility] b 2024 025 [facility] - Outpatient Lab, [address] [place], [address], 5 04:05:53 eosinophil s, quant, blood 2024 025 [facility] Outpatient Lab, [address] [place], [address], 5 04:05:53 Referral None recorded. Procedures None recorded. Surgeries None recorded. Imaging US, echocardio gram, transthora cic, complete - Please call patient to schedule. 2024 025 [facility], [address], [place], [address], 5 09:25:21 Medication Orders albuterol sulfate HFA 90 mcg/actuat ion aerosol inhaler 2024 025 [id number], [address], [place], [id number], 5 15:55:46 Patient TargetsNo targets recorded. Patient Instructions Encounter Date Encounter Id Patient Instructions Last Modified By Organization Details Last Modified Time 11/06/2023 [id number] Follow-up fwaaydstyemj-PWKV-o yperlipidemia -rheumatoid arthritis -obesity. Plan to check blood work consisting of CBC, CMP lipid and thyroid. Continue on current Rx follow-up in six months. Portions of the record may have been created with voice recognition software. Occasional wrong-word or ? jrtwy-x-loxt? substitutions may have occurred due to the inherent limitations of voice recognition software. Read the chart carefully and recognize, using context, where substitutions have occurred. Not available 11/06/2023 12:29:51 05/12/2024 [id number] Follow-up essent ial hypertension, hyperlipidemia, GERD, rheumatoid arthritis, anxiety, dyspnea and obesity. All clinically stable. Check blood work consisting of CBC, CMP, B12, magnesium, lipid, thyroid, vitamin-D level. Does need a mammogram as well as low-dose CT scan of the chest. Will also set up for set of pulmonary functions in the chest x-ray. Will increase the Lasix from 20 mg daily to 40. Instructed take two of the 20 mg daily until finished and then call and get a 40 mg tablet. Additional Orders and/or Directives: 1. Chest x-ray four shortness of breath and wheezing 2. Low-dose CT scan of the chest 3. Mammogram 4. x-ray left foot ankle Next Appointment: 6 Months Approximate Date: 11/08/2024 Portions of the record may have been created with voice recognition software. Occasional wrong-word or ? pmhjw-j-gffl? substitutions may have occurred due to the inherent limitations of voice recognition software. Read the chart carefully and recognize, using context, where substitutions have occurred. [email or web address] Not available 05/12/2024 11:18:47 11/08/2024 [id number] Follow-up for dyspnea, hypertension, hyperlipidemia, hyperglycemia, rheumatoid arthritis and obesity. Will check blood work consisting of a hemoglobin A1c, lipid, thyroid panel. Was apparently told by a dried yeast supervisor she may be diabetic. Could lose weight and would be ideal candidate for possible GLP one inhibitors. Will check blood work 1st and then proceed accordingly. Also set up with pulmonology Additional Orders - Directives - Recommendations 1. pulmonology consult for increasing degrees of shortness of breath and wheezing Follow Up: 4 Months Approximate Date: 03/08/2025 Portions of the record may have been created with voice recognition software. Occasional wrong-word or ? llepl-l-kpeh? substitutions may have occurred due to the inherent limitations of voice recognition software. Read the chart carefully and recognize, using context, where substitutions have occurred. Created: Mason Paul M.D. 11.08.2024 01:40 PM [email or web address] Not available 11/08/2024 14:40:49 11/09/2024 [id number] complete PFT w/ post bronchodilator spirometry* - Please call patient to schedule. GEORGETTE [id number] per [facility] payor portal, ref #[id number]. ATHENAFAX Not available 11/09/2024 16:50:41 Reason for Referral None Reported. Results Created Date Observation Date Name Description Value Unit Range Abnormal Flag Note LastModifiedBy Organization Detail LastModifiedTime 01/06/20 24 01/06/2024 CBC/C OMPLE TE BLD COUNT W/DIF F white blood cells 6.9 x10'3 /uL 4.2-10 .8 Not Available [facility] (Lab) [address] [place], [address], 01/06/2024 13:02:42 01/06/20 24 01/06/2024 CBC/C OMPLE TE BLD COUNT W/DIF F red blood cells 4.08 x10'6 /uL 3.80-5 .20 Not Available [facility] (Lab) [address] [place], [address], 01/06/2024 13:02:42 01/06/20 24 01/06/2024 CBC/C OMPLE TE BLD COUNT W/DIF F hemoglobin 13.3 g/dL 12.0-1 5.6 Not Available [facility] (Lab) [address] [place], [address], 01/06/2024 13:02:42 01/06/20 24 01/06/2024 CBC/C OMPLE TE BLD COUNT W/DIF F hematocrit 40.1 % 35.7-4 5.7 Not Available [facility] (Lab) [address] [place], [address], 01/06/2024 13:02:42 01/06/20 24 01/06/2024 CBC/C OMPLE TE BLD COUNT W/DIF F mean red cell volume 98.3 fL 82.0-9 9.0 Not Available [facility] (Lab) [address] [place], [address], 01/06/2024 13:02:42 01/06/20 24 01/06/2024 CBC/C OMPLE TE BLD COUNT W/DIF F mean red cell hemoglobin 32.6 pg 27.0-3 3.0 Not Available [facility] (Lab) [address] [place], [address], 01/06/2024 13:02:42 01/06/20 24 01/06/2024 CBC/C OMPLE TE BLD COUNT W/DIF F mean RBC HGB concentratio n 33.2 g/dL 31.0-3 6.0 Not Available [facility] (Lab) [address] [place], [address], 01/06/2024 13:02:42 01/06/20 24 01/06/2024 CBC/C OMPLE TE BLD COUNT W/DIF F red cell distribution width 13.9 % 11.8-1 5.5 Not Available [facility] (Lab) [address] [place], [address], 01/06/2024 13:02:42 01/06/20 24 01/06/2024 CBC/C OMPLE TE BLD COUNT W/DIF F platelets 176 x10'3 /uL 150-40 0 Not Available [facility] (Lab) [address] [place], [address], 01/06/2024 13:02:42 01/06/20 24 01/06/2024 CBC/C OMPLE TE BLD COUNT W/DIF F mean platelet volume 12.0 fL 9.0-12 .4 Not Available [facility] (Lab) [address] [place], [address], 01/06/2024 13:02:42 01/06/20 24 01/06/2024 CBC/C OMPLE TE BLD COUNT W/DIF F neutrophils 66.5 % 39.0-7 2.0 Not Available [facility] (Lab) [address] [place], [address], 01/06/2024 13:02:42 01/06/20 24 01/06/2024 CBC/C OMPLE TE BLD COUNT W/DIF F lymphocytes 21.3 % 16.0-4 7.0 Not Available [facility] (Lab) [address] [place], [address], 01/06/2024 13:02:42 01/06/20 24 01/06/2024 CBC/C OMPLE TE BLD COUNT W/DIF F monocytes 9.3 % 5.0-12 .0 Not Available [facility] (Lab) [address] [place], [address], 01/06/2024 13:02:42 01/06/20 24 01/06/2024 CBC/C OMPLE TE BLD COUNT W/DIF F eosinophils 1.9 % 1.0-7. 0 Not Available [facility] (Lab) [address] [place], [address], 01/06/2024 13:02:42 01/06/20 24 01/06/2024 CBC/C OMPLE TE BLD COUNT W/DIF F basophils 0.7 % 0.0-2. 0 Not Available [facility] (Lab) [address] [place], [address], 01/06/2024 13:02:42 01/06/20 24 01/06/2024 CBC/C OMPLE TE BLD COUNT W/DIF F immature granulocytes 0.3 % 0.00-0 .50 Not Available [facility] (Lab) [address] [place], [address], 01/06/2024 13:02:42 01/06/20 24 01/06/2024 CBC/C OMPLE TE BLD COUNT W/DIF F neutrophils, absolute count 4.59 x10'3 /uL 1.5-8. 0 Not Available [facility] (Lab) [address] [place], [address], 01/06/2024 13:02:42 01/06/20 24 01/06/2024 CBC/C OMPLE TE BLD COUNT W/DIF F lymphocytes, absolute count 1.47 x10'3 /uL 1.07-3 .43 Not Available [facility] (Lab) [address] [place], [address], 01/06/2024 13:02:42 01/06/20 24 01/06/2024 CBC/C OMPLE TE BLD COUNT W/DIF F monocytes, absolute count 0.64 x10'3 /uL 0.29-0 .99 Not Available [facility] (Lab) [address] [place], [address], 01/06/2024 13:02:42 01/06/20 24 01/06/2024 CBC/C OMPLE TE BLD COUNT W/DIF F eosinophils, absolute count 0.13 x10'3 /uL 0.02-0 .53 Not Available [facility] (Lab) [address] [place], [address], 01/06/2024 13:02:42 01/06/20 24 01/06/2024 CBC/C OMPLE TE BLD COUNT W/DIF F basophils, absolute count 0.05 x10'3 /uL 0.01-0 .08 Not Available [facility] (Lab) [address] [place], [address], 01/06/2024 13:02:42 01/06/20 24 01/06/2024 CBC/C OMPLE TE BLD COUNT W/DIF F immature granulocytes ,absolute 0.02 x10'3 /uL 0.00-0 .05 Not Available [facility] (Lab) [address] [place], [address], 01/06/2024 13:02:42 01/06/20 24 01/06/2024 CBC/C OMPLE TE BLD COUNT W/DIF F nucleated red blood cells 0.0 % -0 Not Available [facility] (Lab) [address] [place], [address], 01/06/2024 13:02:42 01/06/20 24 01/06/2024 CBC/C OMPLE TE BLD COUNT W/DIF F NRBC# 0.00 x10'3 /uL Not Available [facility] (Lab) [address] [place], [address], 01/06/2024 13:02:42 01/06/20 24 01/06/2024 LIPID PANEL cholesterol 168 mg/dL 140-19 9 [facility] NICOLE NSUS RECOM MENDA TION FOR MAXINE STERO L: ADULT CHILD LOW RISK: <200 <170 BORDE RLINE : <200- 239 ----- HIGH RISK: >240 >200 Not Available [facility] (Lab) [address] [place], [address], 01/06/2024 13:17:27 01/06/20 24 01/06/2024 LIPID PANEL triglyceride s 142 mg/dL 0-150 [facility] NICOLE NSUS REPOR T RECOM MENDA TION FOR TRIGL YCERI NEGRA: ADULT CHILD LOW RISK: <150 ----- BODER LINE: 150-1 99 ----- HIGH RISK: >200 ----- Not Available [facility] (Lab) [address] [place], [address], 01/06/2024 13:17:27 01/06/20 24 01/06/2024 LIPID PANEL HDL cholesterol 64 mg/dL 40- Not Available [facility] [facility] (Lab) [address] [place], [address], 01/06/2024 13:17:27 01/06/20 24 01/06/2024 LIPID PANEL LDL cholesterol, calculated 76 mg/dL 0-130 NIH NICOLE NSUS REPOR T RECOM MENDA TIONS FOR LDL: ADULT CHILD LOW RISK <130 <110 (OPTI MAL LDL) <100 ----- BORDE RLINE : 130-1 59 ----- HIGH RISK: >160 >130 A TRIGL YCERI DE RESUL T >400 INVAL IDATE S THE CALCU LATIO N FOR LDL FRACT IONAT ION - THE LDL RESUL T WILL NOT BE REPOR ELIOT. Not Available [facility] (Lab) [address] [place], [address], 01/06/2024 13:17:27 01/06/20 24 01/06/2024 COMPR EHENS JIMENEZ METAB OLIC PANEL sodium 141 mmol/ L 137-14 5 Not Available [facility] (Lab) [address] [place], [address], 01/06/2024 13:17:31 01/06/20 24 01/06/2024 COMPR EHENS JIMENEZ METAB OLIC PANEL potassium 4.1 mmol/ L 3.5-5. 1 Not Available [facility] (Lab) [address] [place], [address], 01/06/2024 13:17:31 01/06/20 24 01/06/2024 COMPR EHENS JIMENEZ METAB OLIC PANEL chloride 105 mmol/ L 98-107 Not Available [facility] (Lab) [address] [place], [address], 01/06/2024 13:17:31 01/06/20 24 01/06/2024 COMPR EHENS JIMENEZ METAB OLIC PANEL carbon dioxide 31 mmol/ L 22-30 high Not Available [facility] (Lab) [address] [place], [address], 01/06/2024 13:17:31 01/06/20 24 01/06/2024 COMPR EHENS JIMENEZ METAB OLIC PANEL anion gap 9.1 mmol/ L 14-22 low Not Available [facility] (Lab) [address] [place], [address], 01/06/2024 13:17:31 01/06/20 24 01/06/2024 COMPR EHENS JIMENEZ METAB OLIC PANEL glucose 105 mg/dL 70-99 high Not Available [facility] (Lab) [address] [place], [address], 01/06/2024 13:17:31 01/06/20 24 01/06/2024 COMPR EHENS JIMENEZ METAB OLIC PANEL BUN 17 mg/dL 8-19 Not Available [facility] (Lab) [address] [place], [address], 01/06/2024 13:17:31 01/06/20 24 01/06/2024 COMPR EHENS JIMENEZ METAB OLIC PANEL creatinine 0.91 mg/dL 0.66-1 .25 Not Available [facility] (Lab) [address] [place], [address], 01/06/2024 13:17:31 01/06/20 24 01/06/2024 COMPR EHENS JIMENEZ METAB OLIC PANEL GFR >60 Refer ence Range : [place] ge GFR Healt hy Adult : >60 mL/mi n/1.7 3 m2 Chron ic Kidne y Disea se: 15-60 mL/mi n/1.7 3 m2 Kidne y Failu re: <15/m L/min /1.73 m2 www.n iddk. nih.g ov The MDRD study equat ion has not been valid ated in child beatriz <18 years of age; pregn ant women ; the elder ly >85 years of age; or in some racia l or ethni c subgr oups, such as Hisnh nics. Outsi de the valid ated guerita eters , estim ated GFR is less accur ate, requi ring clini marizol judgm ent on a case- by-ca se basis . Clini marizol inter preta tion for other races and ages must be made by the clini elen. The MDRD study equat ion has not been valid ated for the evalu ation of serum creat inine relat ed to nutri gamaliel l statu s or medic ation usage . For perso ns <18 years of age, a pedia tric GFR calcu lator is avail able on the [facility] websi te: https ://davie cooley.edvin woods/pr ofess ional s/kdo qi/gf r_cal culat or Not Available [facility] (Lab) [address] [place], [address], 01/06/2024 13:17:31 01/06/20 24 01/06/2024 COMPR EHENS JIMENEZ METAB OLIC PANEL alkaline phosphatase 54 U/L 38-126 Not Available [facility] (Lab) [address] [place], [address], 01/06/2024 13:17:31 01/06/20 24 01/06/2024 COMPR EHENS JIMENEZ METAB OLIC PANEL alanine aminotransfe rase 23 U/L 0-35 Not Available [facility] (Lab) [address] [place], [address], 01/06/2024 13:17:31 01/06/20 24 01/06/2024 COMPR EHENS JIMENEZ METAB OLIC PANEL aspartate aminotransfe rase 28 U/L 15-37 Not Available [facility] (Lab) [address] [place], [address], 01/06/2024 13:17:31 01/06/20 24 01/06/2024 COMPR EHENS JIMENEZ METAB OLIC PANEL bilirubin, total 0.50 mg/dL 0.20-1 .30 Not Available [facility] (Lab) [address] [place], [address], 01/06/2024 13:17:31 01/06/20 24 01/06/2024 COMPR EHENS JIMENEZ METAB OLIC PANEL calcium 9.7 mg/dL 8.4-10 .2 Not Available [facility] (Lab) [address] [place], [address], 01/06/2024 13:17:31 01/06/20 24 01/06/2024 COMPR EHENS JIMENEZ METAB OLIC PANEL total protein 6.7 g/dL 6.3-8. 2 Not Available [facility] (Lab) [address] [place], [address], 01/06/2024 13:17:31 01/06/20 24 01/06/2024 COMPR EHENS JIMENEZ METAB OLIC PANEL albumin 4.3 g/dL 3.0-4. 4 Not Available [facility] (Lab) [address] [place], [address], 01/06/2024 13:17:31 01/06/20 24 01/06/2024 COMPR EHENS JIMENEZ METAB OLIC PANEL globulin 2.4 g/dL 2.6-4. 2 low Not Available [facility] (Lab) [address] [place], [address], 01/06/2024 13:17:31 01/06/20 24 01/06/2024 COMPR EHENS JIMENEZ METAB OLIC PANEL A/G ratio 1.8 ratio 1.0-2. 0 Not Available [facility] (Lab) [address] [place], [address], 01/06/2024 13:17:31 01/06/20 24 01/06/2024 T4 FREE free T4 1.07 NG/dL 0.78-2 .19 Not Available [facility] (Lab) [address] [place], [address], 01/06/2024 13:19:49 01/06/20 24 01/06/2024 TSH thyroid-stim ulating hormone 4.370 uIU/m L 0.465- 4.680 Not Available [facility] (Lab) [address] [place], [address], 01/06/2024 13:47:20 05/12/20 24 05/12/2024 CBC/C OMPLE TE BLD COUNT W/DIF F white blood cells 5.6 x10'3 /uL 4.2-10 .8 Not Available [facility] (Lab) [address] [place], [address], 05/12/2024 13:08:53 05/12/20 24 05/12/2024 CBC/C OMPLE TE BLD COUNT W/DIF F red blood cells 3.91 x10'6 /uL 3.80-5 .20 Not Available [facility] (Lab) [address] [facility] [place], [address], 05/12/2024 13:08:53 05/12/20 24 05/12/2024 CBC/C OMPLE TE BLD COUNT W/DIF F hemoglobin 12.8 g/dL 12.0-1 5.6 Not Available [facility] (Lab) [address] [place], [address], 05/12/2024 13:08:53 05/12/20 24 05/12/2024 CBC/C OMPLE TE BLD COUNT W/DIF F hematocrit 38.1 % 35.7-4 5.7 Not Available [facility] (Lab) [address] [place], [address], 05/12/2024 13:08:53 05/12/20 24 05/12/2024 CBC/C OMPLE TE BLD COUNT W/DIF F mean red cell volume 97.4 fL 82.0-9 9.0 Not Available [facility] (Lab) [address] [place], [address], 05/12/2024 13:08:53 05/12/20 24 05/12/2024 CBC/C OMPLE TE BLD COUNT W/DIF F mean red cell hemoglobin 32.7 pg 27.0-3 3.0 Not Available [facility] (Lab) [address] [place], [address], 05/12/2024 13:08:53 05/12/20 24 05/12/2024 CBC/C OMPLE TE BLD COUNT W/DIF F mean RBC HGB concentratio n 33.6 g/dL 31.0-3 6.0 Not Available [facility] (Lab) [address] [place], [address], 05/12/2024 13:08:53 05/12/20 24 05/12/2024 CBC/C OMPLE TE BLD COUNT W/DIF F red cell distribution width 14.1 % 11.8-1 5.5 Not Available [facility] (Lab) [address] [place], [address], 05/12/2024 13:08:53 05/12/20 24 05/12/2024 CBC/C OMPLE TE BLD COUNT W/DIF F platelets 182 x10'3 /uL 150-40 0 Not Available [facility] (Lab) [address] [place], [address], 05/12/2024 13:08:53 05/12/20 24 05/12/2024 CBC/C OMPLE TE BLD COUNT W/DIF F mean platelet volume 12.5 fL 9.0-12 .4 high Not Available [facility] (Lab) [address] [place], [address], 05/12/2024 13:08:53 05/12/20 24 05/12/2024 CBC/C OMPLE TE BLD COUNT W/DIF F neutrophils 57.4 % 39.0-7 2.0 Not Available [facility] (Lab) [address] [place], [address], 05/12/2024 13:08:53 05/12/20 24 05/12/2024 CBC/C OMPLE TE BLD COUNT W/DIF F lymphocytes 32.1 % 16.0-4 7.0 Not Available [facility] (Lab) [address] [place], [address], 05/12/2024 13:08:53 05/12/20 24 05/12/2024 CBC/C OMPLE TE BLD COUNT W/DIF F monocytes 8.0 % 5.0-12 .0 Not Available [facility] (Lab) [address] [place], [address], 05/12/2024 13:08:53 05/12/20 24 05/12/2024 CBC/C OMPLE TE BLD COUNT W/DIF F eosinophils 1.2 % 1.0-7. 0 Not Available [facility] (Lab) [address] [place], [address], 05/12/2024 13:08:53 05/12/20 24 05/12/2024 CBC/C OMPLE TE BLD COUNT W/DIF F basophils 1.1 % 0.0-2. 0 Not Available [facility] (Lab) [address] [place], [address], 05/12/2024 13:08:53 05/12/20 24 05/12/2024 CBC/C OMPLE TE BLD COUNT W/DIF F immature granulocytes 0.2 % 0.00-0 .50 Not Available [facility] (Lab) [address] [place], [address], 05/12/2024 13:08:53 05/12/20 24 05/12/2024 CBC/C OMPLE TE BLD COUNT W/DIF F neutrophils, absolute count 3.22 x10'3 /uL 1.5-8. 0 Not Available [facility] (Lab) [address] [place], [address], 05/12/2024 13:08:53 05/12/20 24 05/12/2024 CBC/C OMPLE TE BLD COUNT W/DIF F lymphocytes, absolute count 1.80 x10'3 /uL 1.07-3 .43 Not Available [facility] (Lab) [address] [place], [address], 05/12/2024 13:08:53 05/12/20 24 05/12/2024 CBC/C OMPLE TE BLD COUNT W/DIF F monocytes, absolute count 0.45 x10'3 /uL 0.29-0 .99 Not Available [facility] (Lab) [address] [place], [address], 05/12/2024 13:08:53 05/12/20 24 05/12/2024 CBC/C OMPLE TE BLD COUNT W/DIF F eosinophils, absolute count 0.07 x10'3 /uL 0.02-0 .53 Not Available [facility] (Lab) [address] [place], [address], 05/12/2024 13:08:53 05/12/20 24 05/12/2024 CBC/C OMPLE TE BLD COUNT W/DIF F basophils, absolute count 0.06 x10'3 /uL 0.01-0 .08 Not Available [facility] (Lab) [address] [place], [address], 05/12/2024 13:08:53 05/12/20 24 05/12/2024 CBC/C OMPLE TE BLD COUNT W/DIF F immature granulocytes ,absolute 0.01 x10'3 /uL 0.00-0 .05 Not Available [facility] (Lab) [address] [place], [address], 05/12/2024 13:08:53 05/12/20 24 05/12/2024 CBC/C OMPLE TE BLD COUNT W/DIF F nucleated red blood cells 0.0 % -0 Not Available [facility] (Lab) [address] [place], [address], 05/12/2024 13:08:53 05/12/20 24 05/12/2024 CBC/C OMPLE TE BLD COUNT W/DIF F NRBC# 0.00 x10'3 /uL Not Available [facility] (Lab) [address] [place], [address], 05/12/2024 13:08:53 05/12/20 24 05/12/2024 LIPID PANEL cholesterol 178 mg/dL 140-19 9 NIH NICOLE NSUS RECOM MENDA TION FOR MAXINE STERO L: ADULT CHILD LOW RISK: <200 <170 BORDE RLINE : <200- 239 ----- HIGH RISK: >240 >200 Not Available [facility] (Lab) [address] [place], [address], 05/12/2024 13:16:05 05/12/20 24 05/12/2024 LIPID PANEL triglyceride s 144 mg/dL 0-150 NIH NICOLE NSUS REPOR T RECOM MENDA TION FOR TRIGL YCERI NEGRA: ADULT CHILD LOW RISK: <150 ----- BODER LINE: 150-1 99 ----- HIGH RISK: >200 ----- Not Available [facility] (Lab) [address] [place], [address], 05/12/2024 13:16:05 05/12/20 24 05/12/2024 LIPID PANEL HDL cholesterol 60 mg/dL 40- Not Available [facility] (Lab) [address] [place], [address], 05/12/2024 13:16:05 05/12/20 24 05/12/2024 LIPID PANEL LDL cholesterol, calculated 89 mg/dL 0-130 NIH NICOLE NSUS REPOR T RECOM MENDA TIONS FOR LDL: ADULT CHILD LOW RISK <130 <110 (OPTI MAL LDL) <100 ----- BORDE RLINE : 130-1 59 ----- HIGH RISK: >160 >130 A TRIGL YCERI DE RESUL T >400 INVAL IDATE S THE CALCU LATIO N FOR LDL FRACT IONAT ION - THE LDL RESUL T WILL NOT BE REPOR ELIOT. Not Available [facility] (Lab) [address] [place], [address], 05/12/2024 13:16:05 05/12/20 24 05/12/2024 COMPR EHENS JIMENEZ METAB OLIC PANEL sodium 140 mmol/ L 137-14 5 Not Available [facility] (Lab) [address] [place], [address], 05/12/2024 13:16:21 05/12/20 24 05/12/2024 COMPR EHENS JIMENEZ METAB OLIC PANEL potassium 3.6 mmol/ L 3.5-5. 1 Not Available [facility] (Lab) [address] [place], [address], 05/12/2024 13:16:21 05/12/20 24 05/12/2024 COMPR EHENS JIMENEZ METAB OLIC PANEL chloride 113 mmol/ L 98-107 high Not Available [facility] (Lab) [address] [place], [address], 05/12/2024 13:16:21 05/12/20 24 05/12/2024 COMPR EHENS JIMENEZ METAB OLIC PANEL carbon dioxide 26 mmol/ L 22-30 Not Available [facility] (Lab) [address] [place], [address], 05/12/2024 13:16:21 05/12/20 24 05/12/2024 COMPR EHENS JIMENEZ METAB OLIC PANEL anion gap 4.6 mmol/ L 14-22 low Not Available [facility] (Lab) [address] [place], [address], 05/12/2024 13:16:21 05/12/20 24 05/12/2024 COMPR EHENS JIMENEZ METAB OLIC PANEL glucose 122 mg/dL 70-99 high Not Available [facility] (Lab) [address] [place], [address], 05/12/2024 13:16:21 05/12/20 24 05/12/2024 COMPR EHENS JIMENEZ METAB OLIC PANEL BUN 11 mg/dL 8-19 Not Available [facility] (Lab) [address] [place], [address], 05/12/2024 13:16:21 05/12/20 24 05/12/2024 COMPR EHENS JIMENEZ METAB OLIC PANEL creatinine 0.76 mg/dL 0.66-1 .25 Not Available [facility] (Lab) [address] [place], [address], 05/12/2024 13:16:21 05/12/20 24 05/12/2024 COMPR EHENS JIMENEZ METAB OLIC PANEL GFR >60 Refer ence Range : [place] ge GFR Healt hy Adult : >60 mL/mi n/1.7 3 m2 Chron ic Kidne y Disea se: 15-60 mL/mi n/1.7 3 m2 Kidne y Failu re: <15/m L/min /1.73 m2 www.n iddk. nih.g ov The MDRD study equat ion has not been valid ated in child beatriz <18 years of age; pregn ant women ; the elder ly >85 years of age; or in some racia l or ethni c subgr oups, such as Hisnh nics. Outsi de the valid ated guerita eters , estim ated GFR is less accur ate, requi ring clini marizol judgm ent on a case- by-ca se basis . Clini marizol inter preta tion for other races and ages must be made by the clini elen. The MDRD study equat ion has not been valid ated for the evalu ation of serum creat inine relat ed to nutri gamaliel l statu s or medic ation usage . For perso ns <18 years of age, a pedia tric GFR calcu lator is avail able on the F websi te: https ://ww w.kid yasir.o rg/pr ofess ional s/kdo qi/gf r_cal culat or Not Available [facility] (Lab) [address] [place], [address], 05/12/2024 13:16:21 05/12/20 24 05/12/2024 COMPR EHENS JIMENEZ METAB OLIC PANEL alkaline phosphatase 51 U/L 38-126 Not Available [facility] (Lab) [address] [place], [address], 05/12/2024 13:16:21 05/12/20 24 05/12/2024 COMPR EHENS JIMENEZ METAB OLIC PANEL alanine aminotransfe rase 26 U/L 0-35 Not Available [facility] (Lab) [address] [place], [address], 05/12/2024 13:16:21 05/12/20 24 05/12/2024 COMPR EHENS JIMENEZ METAB OLIC PANEL aspartate aminotransfe rase 27 U/L 15-37 Not Available [facility] (Lab) [address] [place], [address], 05/12/2024 13:16:21 05/12/20 24 05/12/2024 COMPR EHENS JIMENEZ METAB OLIC PANEL bilirubin, total 0.50 mg/dL 0.20-1 .30 Not Available [facility] (Lab) [address] [place], [address], 05/12/2024 13:16:21 05/12/20 24 05/12/2024 COMPR EHENS JIMENEZ METAB OLIC PANEL calcium 9.3 mg/dL 8.4-10 .2 Not Available [facility] (Lab) [address] [place], [address], 05/12/2024 13:16:21 05/12/20 24 05/12/2024 COMPR EHENS JIMENEZ METAB OLIC PANEL total protein 6.4 g/dL 6.3-8. 2 Not Available [facility] (Lab) [address] [place], [address], 05/12/2024 13:16:21 05/12/20 24 05/12/2024 COMPR EHENS JIMENEZ METAB OLIC PANEL albumin 4.1 g/dL 3.0-4. 4 Not Available [facility] (Lab) [address] [place], [address], 05/12/2024 13:16:21 05/12/20 24 05/12/2024 COMPR EHENS JIMENEZ METAB OLIC PANEL globulin 2.3 g/dL 2.6-4. 2 low Not Available [facility] (Lab) [address] [place], [address], 05/12/2024 13:16:21 05/12/20 24 05/12/2024 COMPR EHENS JIMENEZ METAB OLIC PANEL A/G ratio 1.8 ratio 1.0-2. 0 Not Available [facility] (Lab) [address] [place], [address], 05/12/2024 13:16:21 05/12/20 24 05/12/2024 MAGNE SIUM magnesium 2.1 mg/dL 1.6-2. 3 Not Available [facility] (Lab) [address] [place], [address], 05/12/2024 13:16:25 05/12/20 24 05/12/2024 T4 FREE free T4 1.28 NG/dL 0.78-2 .19 Not Available [facility] (Lab) [address] [place], [address], 05/12/2024 13:40:40 05/12/20 24 05/12/2024 TSH thyroid-stim ulating hormone 1.340 uIU/m L 0.465- 4.680 Not Available [facility] (Lab) [address] [place], [address], 05/12/2024 13:46:22 05/12/20 24 05/12/2024 VITAM IN D 25-HY DROXY vd25oh 48.0 NG/mL 30-100 Vitam in D Statu s: Defic ient: <20 ng/mL Insuf ficie nt: 20-29 ng/mL Suffi cient : 30-10 0 ng/mL Not Available [facility] (Lab) [address] [place], [address], 05/12/2024 13:50:32 05/12/20 24 05/12/2024 VITAM IN B12 (NITIN NADIA ) vb12 900 pg/mL 239-93 1 Not Available [facility] (Lab) [address], [place], [address], 05/12/2024 14:18:19 02/09/20 24 02/11/2019 home sleep study No observ ation record ed. BARCODE Not Available 2023 14:14:57 02/09/20 24 03/27/2019 polys omnog yaz, titra tion study No observ ation record ed. BARCODE Not Available 2023 14:14:58 05/12/20 XR, foot, 3 or more view [facility] [address] [place] [address] Patien t Name: AUTUMN HALL Access ion #: [id number] Sex: F : 1955 2 Dictat ed By: Simón Murphy ms Attend ing Physic stephanie: ANDRES PAUL CE Orderi ng Physic stephanie: ANDRES PAUL CE Exam Date: 2023 11:04 AM Exam Name: XR FOOT LT 3V+ Admitt ing Diagno sis(es ): PROCED URE: Left foot radiog raphs. INDICA TION: 68 years old, Female ; pain. TECHNI QUE: 3 views of the left foot were obtain ed. COMPAR GILBERTO: None FINDIN GS: There is no eviden ce of fractu re or disloc ation. Subcho ndral lucenc ies in the midfoo t joints likely degene rative in etiolo gy. Dorsal soft tissue swelli ng. Large os trigon um. Heel spur. IMPRES SHIRLEY: 1. No fractu re or disloc ation. 2. Heel spur. 3. Heel spur. 4. Dorsal soft tissue swelli ng. Electr onical ly Signed by: Simón Murphy ms at 2023 11:39: 52 AM Page [address] (Imaging) [address] [place], [address], 05/12/2024 14:13:19 05/12/20 24 XR, chest , 2 view [facility] [address] [place] [address] Patien t Name: AUTUMN HALL Access ion #: [id number] Sex: F : 1955 2 Dictat ed By: Anabela Gibson Attend ing Physic stephanie: ANDRES PAUL Orderi ng Physic stephanie: ANDRES PAUL Exam Date: 2023 11:00 AM Exam Name: XR CHEST 2V Admitt ing Diagno sis(es ): EXAM: XR CHEST 2V CLINIC AL HISTOR Y: dyspne a COMPAR GILBERTO: None TECHNI QUE: Fronta l and latera l view of the chest was obtain ed FINDIN GS: Lines and Tubes: None Lungs: No focal consol idatio n. Pleura : No effusi on. No pneumo thorax . Cardio medias tinal contou rs: Unrema rkable Bones: No acute osseou s abnorm ality. IMPRES SHIRLEY: No acute cardio pulmon chana diseas e. Electr onical ly Signed by: Anabela Gibson at 2023 11:41: 16 AM Page [address] (Imaging) [address] [place], [address], 05/12/2024 14:13:47 05/12/20 24 XR, ankle , 3 or more view [facility] [address] [place] [id number] [phone] Patien t Name: AUTUMN HALL Access ion #: [id number] Sex: F : 1955 2 Dictat ed By: Nikhil Fall Attend ing Physic stephanie: PAUL , ANDRES CE Orderi ng Physic stephanie: ANDRES PAUL CE Exam Date: 2023 11:03 AM Exam Name: XR ANKLE LT 3V+ Admitt ing Diagno sis(es ): CLINIC AL INDICA TION: pain TECHNI QUE: 3 radiog raphic views of the left ankle were obtain ed. Compar gilberto: None FINDIN GS/IMP RESSIO N: There is no eviden ce of acute fractu re or disloc ation. Diffus e soft tissue swelli ng overly ing the bilate ral malleo li. The alignm ent is anatom ical. There is no radiop aque foreig n body. Electr onical ly Signed by: Nikhil Fall at 2023 12:13: 36 PM Page [address] (Imaging) [address] [place], [address], 05/12/2024 14:13:20 06/03/20 24 06/03/2024 LDCT, chest , for lung cance r scree alejandro No observ ation record ed. [address] [facility] [address], [place], [address], 06/04/2024 08:58:43 08/16/20 24 08/16/2024 MAMMO , scree alejandro, digit al, bilat eral No observ ation record ed. [address] [facility] [address], [place], [address], 08/16/2024 17:16:37 08/16/20 24 08/16/2024 XR, hand No observ ation record ed. [address] [facility] [address], [place], [address], 08/16/2024 17:17:11 08/16/20 24 08/16/2024 XR, foot No observ ation record ed. [address] [facility] [address], [place], [address], 08/16/2024 17:17:35 08/17/20 24 08/16/2024 XR, hip + pelvi s, unila teral No observ ation record ed. [address], [place], [address], 08/17/2024 09:25:04 08/17/20 24 08/16/2024 XR, knee No observ ation record ed. [address] [facility] [address], [place], [address], 08/17/2024 09:25:27 08/17/20 24 08/16/2024 XR, knee No observ ation record ed. [address], [place], [address], 08/17/2024 09:25:50 08/26/20 24 08/08/2024 CT, thora cic spine , w/o contr ast No observ ation record ed. Not Available 2024 16:12:29 09/05/20 24 09/03/2024 MRI, lumba r spine , w/o contr ast No observ ation record ed. [address], [place], [address], 09/05/2024 08:44:07 09/05/20 24 09/03/2024 MRI, cervi marizol spine , w/o contr ast No observ ation record ed. [email or web address] [facility] [address], [place], [address], 09/05/2024 11:45:31 11/18/19 25 11/18/2024 PFT, compl ete No observ ation record ed. [address], [place], [address], 11/18/2024 17:43:46 Result Notes None recorded. Problems Name Problem SNOMED Code Status Onset Date Resolution Date Notes Provider Name and Address Organization Details Recorded Time Anxiety disorder 889633713 Active Not Available [facility] 3 05:32:35 Pure hyperchole sterolemia 675783450 Active Not Available [facility] 3 05:32:35 Depressive disorder 54240963 Active 2016 Not Available [facility] 3 05:32:35 Obesity 604764495 Active 2021 Not Available [facility] 3 05:32:35 Herpes zoster 7498979 Active 2021 Not Available [facility] 3 05:32:35 Essential hypertensi on 54846793 Active Not Available [facility] 3 05:32:35 Rheumatoid arthritis 54121727 Active 2019 Not Available [facility] 3 05:32:35 Obstructiv e sleep apnea syndrome 34728387 Active 2018 Not Available [facility] 3 05:32:35 Gastroesop hageal reflux disease without esophagiti s 290612790 Active 2022 Not Available [facility] 3 05:32:35 Venous insufficie ncy of leg 766269543 Active 2022 Mason Paul MD [address], [address] , [facility] [employer] [facility] 3 15:12:18 Vitamin D deficiency 53722664 Active 2023 Mason Paul MD [address] [facility] [address] [address], [place], [address] , [employer] [facility] [employer] [facility] 4 11:18:06 Asthma-chr onic obstructiv e pulmonary disease overlap syndrome 5362292214000 9107 Active 2024 Rickey Riley MD [address] [address], [place], [address] , [facility] [employer] [facility] 5 15:41:47 Type 2 diabetes mellitus without complicati on [id number] Active 2024 Temitope Cha CMA null, [facility] [employer] Away 14:17:40 Hyperglyce dalton [id number] Active 2024 Mason Paul MD [address], [facility] [address], [place], [address] , [facility] [employer] [facility] 14:36:15 Notes:Medical History: Anxie ty/Depression Rhinitis with postnasal drip Bruxism Mild ACO 5 mm RLL nodule Obesity with severe OSAHS, AHI = 42, 02/10/19, on CPAP c/o Provider Plus Hypertension EF 73% Hyperlipidemia MARY Sigmoid diverticulosis/diverticulitis Bilateral renal cysts Left ovarian cyst Right great saphenous vein insufficiency Vit D deficiency RA on hydroxychloroquine & Olumiant Cervicothoracolumbar spondylosis Bilateral hands, ankles, feet OA Bilateral Achilles and plantar enthesopathy Bilateral hallux valgus Left heel spur Herpes zoster Procedure History: Appendectomy 1970 Tubal ligation 1979 Left foot surgery 1993 Cholecystectomy 1997 JEREMY 1999 Bladder suspension 1999 Bilateral CTS release surgeries 2014 Left foot tendon repair 2018 Colonoscopy 2021 Cardiac catheterization 2022 Cervical fusion 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 Procedures Surgical History Date Name Laterality Status Provider Name and Address Organization Details Recorded Time 03/27/20 20 Most Recent Bone Density completed Not Available [facility] 12/17/2022 02:34:19 03/31/20 16 Date of Last Colonoscopy completed Not Available [facility] 12/17/2022 02:34:19 Imaging Results Imaging Date Name Status LastModified by Organiz ation Details LastModified Time 02/11/2019 home sleep study completed [facility] Information not available 02/09/2024 14:14:57 03/27/2019 polysomnogram, titration study completed [facility] Information not available 02/09/2024 14:14:58 05/12/2024 XR, foot, 3 or more view completed [address] (Imaging) [address] [place], [address], 05/12/2024 14:13:19 05/12/2024 XR, chest, [address] (Imaging) [address] [place], [address], 05/12/2024 14:13:47 05/12/2024 XR, ankle, 3 or more view completed [address] (Imaging) [address], [place], [address], 05/12/2024 14:13:20 06/03/2024 LDCT, chest, for lung cancer screening completed [id number] [place] [address] [address], [place], [address], 06/04/2024 08:58:43 08/16/2024 MAMMO, screening, digital, bilateral completed [id number] [place] [address] [address], [place], [address], 08/16/2024 17:16:37 08/16/2024 XR, hand completed [email or web address], [place], [address], 08/16/2024 17:17:11 08/16/2024 XR, foot completed [id number] [place] [address] [address], [place], [address], 08/16/2024 17:17:35 08/16/2024 XR, hip + pelvis, unilateral completed [id number], [place], [address], 08/17/2024 09:25:04 08/16/2024 XR, knee completed [id number] [place] [address] [address], [place], [address], 08/17/2024 09:25:27 08/16/2024 XR, knee completed [id number] [place] [address] Imaging [address], [place], [address], 08/17/2024 09:25:50 08/08/2024 CT, thoracic spine, w/o contrast active Information not available 11/09/2024 16:12:29 09/03/2024 MRI, lumbar spine, w/o contrast completed [email or web address] [facility] [address], [place], [address], 09/05/2024 08:44:07 09/03/2024 MRI, cervical spine, w/o contrast completed [email or web address] [facility] [address], [place], [address], 09/05/2024 11:45:31 11/18/2024 PFT, complete completed [id number] [facility] [address], [place], [address], 11/18/2024 17:43:46 Procedure Notes None recorded. Medical Equipment None Reported. Allergies Allergen ID Allergen Name Allergen Category Reaction Reaction Severity Criticality Documentation Date Start Date Code Code System Note Provider Name and Address Organization Details Recorded Time 3547 sodium medicatio n Not available Not available Not available 12/17/2022 9853 RxNorm Not Available [facility] 3 02:46:24 3548 naproxen medicatio n Not available Not available Not available 12/17/2022 7258 RxNorm Not Available [facility] 3 02:46:24 3549 Vaccine product containin g only Influenza virus antigen (medicina l product) medicatio n Not available Not available Not available 12/17/2022 23875 78589 105 SNOMED Not Available [facility] 3 02:46:24 Medications Name Sig Start Date Stop Date Status Note LastModified by Organization Details LastModified Time Pravachol 40 mg tablet half tablet at bedtime 2013 active Not Available Not Available Not Avai lable amoxicillin 500 mg capsule Take 1 capsule 3 times a day by oral route for 10 days. 08/24 completed Not Available Not Available Not Available metformin 500 mg tablet Take 1 tablet twice a day by oral route. 2024 active Not Available Not Available Not Avai lable Augmentin 875 mg-125 mg tablet Take 1 tablet every 12 hours by oral route. active Not Available Not Available No t Available prednisone 10 mg tablet active Not Available Not Available Not Available venlafaxine ER 75 mg capsule,ext ended release 24 hr TAKE 1 CAPSULE BY MOUTH DAILY 05/02 completed Not Available Not Available Not Available nicotine 14 mg/24 hr daily transdermal patch 08/22 completed Not Available Not Available Not Available azithromyci n 250 mg tablet Take 2 TABLET EVERY DAY by oral route for 1 day then one daily active Not Available Not Available No t Available valacyclovi r 1 gram tablet TAKE 1 TABLET BY MOUTH THREE TIMES DAILY 08/22 completed Not Available Not Available Not Available meloxicam 15 mg tablet Take 1 tablet every day by oral route. 02/06 completed Not Available Not Available Not Available lisinopril 20 mg tablet Take 1 tablet every day by oral route. active Not Available Not Available No t Available prednisone 5 mg tablet TK 1 T PO QD 05/10 completed Not Available Not Available Not Available venlafaxine ER 150 mg capsule,ext ended release 24 hr TAKE 1 CAPSULE BY MOUTH DAILY active Not Available Not Available No t Available promethazin e 6.25 mg-codeine 10 mg/5 mL syrup Take 5 ML EVERY 6 HOURS by oral route PRN for cough 10/07 completed Not Available Not Available Not Available penicillin V potassium 500 mg tablet 01/04 completed Not Available Not Available Not Available potassium chloride ER 10 mEq tablet,exte nded release Take 1 tablet every day by oral route. 01/04 completed Not Available Not Available Not Available metronidazo le 500 mg tablet TAKE 1 TABLET BY MOUTH EVERY 8 HOURS 08/22 completed Not Available Not Available Not Available amlodipine 5 mg tablet Take 1 tablet every day by oral route. active Not Available Not Available No t Available sulfamethox azole 800 mg-trimetho prim 160 mg tablet Take 1 tablet every 12 hours by oral route. 07/24 completed Not Available Not Available Not Available aspirin 81 mg tablet,zena yed release Take 1 tablet every day by oral route. 2018 active Not Available Not Available Not Avai lable leflunomide 20 mg tablet TAKE 1 TABLET BY MOUTH DAILY active Not Available Not Available No t Available tramadol 50 mg tablet ONE TABLET EVERY 6 HOURS NEEDED 08/24 completed Not Available Not Available Not Available acetaminoph en 500 mg tablet Take 2 tablets 3 times a day by oral route. 01/23 completed Not Available Not Available Not Available triamcinolo ne acetonide 0.1 % topical cream active Not Available Not Available Not Available meloxicam 7.5 mg tablet TK 1 T PO QD 05/10 completed Not Available Not Available Not Available amiloride 5 mg tablet TAKE 1/2 TABLET BY MOUTH EVERY DAY active Not Available Not Available No t Available amoxicillin 875 mg tablet TAKE 1 TABLET BY MOUTH TWICE DAILY 08/22 completed Not Available Not Available Not Available alprazolam 0.25 mg tablet take one tablet by mouth tid dx: f41.9 2024 active Not Available Not Available Not Avai lable citalopram 20 mg tablet once daily 10/07 completed Not Available Not Available Not Available methotrexat e sodium 2.5 mg tablet TK 7 TS PO ONCE A WK 05/10 completed Not Available Not Available Not Available gentamicin 0.3 % eye drops active Not Available Not Available Not Available amlodipine 10 mg tablet TAKE 1 TABLET BY MOUTH DAILY 05/12 completed Not Available Not Available Not Available hydrocodone 7.5 mg-acetamin ophen 325 mg tablet TK 1 T PO BID 01/04 completed Not Available Not Available Not Available cephalexin 500 mg capsule 05/10 completed Not Available Not Available Not Available pantoprazol e 40 mg tablet,zena yed release TAKE 1 TABLET BY MOUTH EVERY DAY 2023 active Not Available Not Available Not Avai lable simvastatin 20 mg tablet TAKE 1 TABLET BY MOUTH DAILY 2023 active Not Available Not Available Not Avai lable losartan 25 mg tablet Take 2 tablets every day by oral route. active Not Available Not Available No t Available nitroglycer in 0.4 mg sublingual tablet 01/16 completed Not Available Not Available Not Available gabapentin 300 mg capsule TAKE 1 CAPSULE BY MOUTH THREE TIMES DAILY active Not Available Not Available No t Available omeprazole 20 mg capsule,del ayed release PT INSURANCE WILL NOT COVER WILL NOT COVER ANY PPI SHE WILL HAVE TO GET OVER THE COUNTER active Not Available Not Available No t Available diclofenac sodium 75 mg tablet,zena yed release TK 1 T PO BID 01/04 completed Not Available Not Available Not Available folic acid 1 mg tablet TK 1 T PO ONCE A DAY 05/10 completed Not Available Not Available Not Available furosemide 20 mg tablet TAKE 1 TABLET BY MOUTH DAILY active Not Available Not Available No t Available Levaquin 500 mg tablet Take 1 tablet every 24 hours by oral route. active Not Available Not Available No t Available hydroxychlo roquine 200 mg tablet TAKE 2 TABLETS BY MOUTH DAILY 11/08 completed Not Available Not Available Not Available levofloxaci n 750 mg tablet TAKE 1 TABLET BY MOUTH DAILY 08/22 completed Not Available Not Available Not Available methylpredn isolone 4 mg tablets in a dose pack Take by oral route as per package insert active Not Available Not Available No t Available albuterol sulfate HFA 90 mcg/actuati on aerosol inhaler Inhale 1 puff every 4 hours by inhalatio n route as needed. 2024 active Not Available Not Available Not Avai lable Vitamin D2 1,250 mcg (50,000 unit) capsule Take 1 capsule every week by oral route. active Not Available Not Available No t Available losartan 100 mg tablet TAKE 1 TABLET BY MOUTH EVERY DAY active Not Available Not Available No t Available doxycycline hyclate 100 mg tablet TAKE 1 TABLET BY MOUTH TWICE DAILY 01/03 completed Not Available Not Available Not Available naproxen 500 mg tablet Take 1 tablet twice a day by oral route with meals. active Not Available Not Available No t Available Evening [place] 500 mg capsule Take 1 capsule every day by oral route. 09/07 completed Not Available Not Available Not Available Premarin 0.625 mg tablet Take 1 tablet 3 times a week by oral route. 02/24 completed Not Available Not Available Not Available potassium chloride ER 10 mEq tablet,exte nded release(par t/cryst) TAKE 2 TABLETS BY MOUTH DAILY active Not Available Not Available No t Available estradiol as directed 2013 active Not Available Not Available Not Avai lable Enbrel SureClick 50 mg/mL (1 mL) subcutaneou s pen injector 01/04 completed Not Available Not Available Not Available hydrochloro thiazide 12.5 mg tablet Take 1 tablet every day by oral route. 01/04 completed Not Available Not Available Not Available cholecalcif gissell (vitamin D3) 1,250 mcg (50,000 unit) capsule TAKE 1 CAPSULE BY MOUTH WEEKLY active Not Available Not Available No t Available Fiber (calcium polycarboph il) 625 mg tablet Take 1 tablet every day by oral route. 09/07 completed Not Available Not Available Not Available Probiotic 10 billion cell capsule Take 1 capsule every day by oral route. 09/07 completed Not Available Not Available Not Available methotrexat e 2.5 mg tablet Take 7 tablets every week by oral route. 12/29 completed Not Available Not Available Not Available Myrbetriq 25 mg tablet,exte nded release Take 1 tablet every day by oral route. 10/07 completed Not Available Not Available Not Available Fish Oil 120 mg-180 mg-60 mg-1,200 mg capsule,del ayed release Take by oral route. 09/07 completed Not Available Not Available Not Available biotin 1,000 mcg chewable tablet Take 1 tablet every day by oral route. 09/07 completed Not Available Not Available Not Available Olumiant 2 mg tablet Take 1 tablet every day by oral route. active Not Available Not Available No t Available Vitals Date Recorded Body height Body mass index (BMI) Body weight Heart rate Body temperature Oxygen saturation Oxygen saturation in Arterial blood by Pulse oximetry Systolic blood pressure Diastolic blood pressure Provider Name and Address Organization Details Last Updated DateTime 4 160.02 cm 44.8 kg/m2 911681. 87 g 84 /min 97 [degF] 96 % 96 % 124 mm[Hg] 82 mm[Hg] Eliza Hollingsworth [employer] [facility] 4 12:06:39 Date Recorded Body height Body mass index (BMI) Body weight Body temperature Heart rate Oxygen saturation Oxygen saturation in Arterial blood by Pulse oximetry Systolic blood pressure Diastolic blood pressure Provider Name and Address Organization Details Last Updated DateTime 4 160.02 cm 45.5 kg/m2 835652. 24 g 98.1 [degF] 87 /min 95 % 95 % 124 mm[Hg] 70 mm[Hg] Noel Kemp CMA [place] [employer] [facility] [employer] [facility] 4 15:26:47 Date Recorded Heart rate Respiratory rate Provider N jennifer and Address Organization Details Last Updated DateTime 02/09/2024 87 /min 15 /min Rickey Riley MD [address], [facility] [address], [place], [address], [place] [employer] [facility] 02/09/2024 15:27:33 Date Recorded Body height Body mass index (BMI) Body weight Heart rate Body temperature Oxygen saturation Oxygen saturation in Arterial blood by Pulse oximetry Systolic blood pressure Diastolic blood pressure Provider Name and Address Organization Details Last Updated DateTime 4 160.02 cm 45.7 kg/m2 615491. 83 g 78 /min 97.2 [degF] 95 % 95 % 144 mm[Hg] 90 mm[Hg] VINCENZO Cruz [place] [employer] [facility] 4 10:54:38 Date Recorded Body height Body mass index (BMI) Body weight Heart rate Body temperature Oxygen saturation Oxygen saturation in Arterial blood by Pulse oximetry Systolic blood pressure Diastolic blood pressure Provider Name and Address Organization Details Last Updated DateTime 5 162.56 cm 43.8 kg/m2 289370. 05 g 74 /min 97 [degF] 98 % 98 % 144 mm[Hg] 80 mm[Hg] Eliza Hollingsworth [place] [employer] [facility] 5 14:27:54 Date Recorded Body height Body mass index (BMI) Body weight Body temperature Heart rate Oxygen saturation Oxygen saturation in Arterial blood by Pulse oximetry Systolic blood pressure Diastolic blood pressure Provider Name and Address Organization Details Last Updated DateTime 5 162.56 cm 43.8 kg/m2 145287. 05 g 98.1 [degF] 77 /min 95 % 95 % 140 mm[Hg] 84 mm[Hg] Josiane Soliz MA [place] [employer] [facility] 5 15:50:26 Date Recorded Heart rate Respiratory rate Provider N jennifer and Address Organization Details Last Updated DateTime 11/09/2024 77 /min 15 /min Rickey Riley MD [address], [facility] [address], [place], [address], [place] [employer] [facility] 11/09/2024 16:24:22 Social History Question Answer Notes LastModified by Organizat ion Details LastModified Time Tobacco Smoking Status Current Every Day Smoker Not Available [facility] 12/17/2022 02:29:58 Do You Have An Advance Directive? No [id number] Information not available 12/17/2022 What Is Your Level Of Alcohol Consumption? Occasional [id number] Information not available 12/17/2022 What Is Your Level Of Caffeine Consumption? Occasional Information not available 11/09/2024 How Much Tobacco Do You Chew? None [id number] Information not available 12/17/2022 In The 14 Days Before Symptom Onset, Have You Had Close Contact With A Laboratory-confi rmed COVID-19 While That Case Was Ill? No [id number] Information not available 12/17/2022 In The 14 Days Before Symptom Onset, Have You Had Close Contact With A Person Who Is Under Investigation For COVID-19 While That Person Was Ill? No [id number] Information not available 12/17/2022 What Type Of Diet Are You Following? REGULAR [id number] Information not available 12/17/2022 Do You Or Have You Ever Used E-cigarettes Or Vape? Never Used Electronic Cigarettes [id number].[id number] Information not available 12/17/2022 Do You Have An Electrostatic Air Filter? No Information not available 11/09/2024 Have There Been Any Changes To Your Family Or Social Situation? No [id number] Information not available 12/17/2022 What Is The Fluoride Status Of Your Home? Unknown [id number] Information not available 12/17/2022 Do You Have A Humidifier? No Information not available 11/09/2024 Do You Use Insect Repellent Routinely? No [id number] Information not available 12/17/2022 Where Do You Live? [place] MIGRATION.[id number] Information not available 12/17/2022 Do You Have A Medical Power Of Teletypist? No MIGRATION.[id number] Information not available 12/17/2022 Do You Have Moisture Problems In Your Home? No Information not available 11/09/2024 What Was The Date Of Your Most Recent Tobacco Screening? 11/09/2024 Information not available 11/09/2024 Do You Have Any Pets? Yes MIGRATION.[id number] Information not available 12/17/2022 What Is Your Relationship Status? MIGRATION.[id number] Information not available 12/17/2022 Do You Use Your Seat Belt Or Car Seat Routinely? Yes [id number].[id number] Information not available 12/17/2022 Do You Have Smoke And Carbon Monoxide Detectors In Your Home? Yes MIGRATION.[id number] Information not available 12/17/2022 At What Age Did You Start Smoking Tobacco? 17 MIGRATION.[id number] Information not available 12/17/2022 Are You Passively Exposed To Smoke? Yes [id number].[id number] Information not available 12/17/2022 Do You Or Have You Ever Used Smokeless Tobacco? Never Used Smokeless Tobacco MIGRATION.[id number] Information not available 12/17/2022 How Much Tobacco Do You Smoke? 1 PPD MIGRATION.[id number] Information not available 12/17/2022 Do You Use Any Illicit Or Recreational Drugs? No Information not available 11/09/2024 Do You Use Sunscreen Routinely? No MIGRATION.[id number] Information not available 12/17/2022 Have You Recently Traveled Abroad? No MIGRATION.[id number] Information not available 12/17/2022 Do You Have Any Dietary Restrictions? No MIGRATION.[id number] Information not available 12/17/2022 Sex: Unknown Functional Status Question Answer Note LastModified by Organizat ion Details LastModified Time What is your exercise level? None [id number] Information not available 12/17/2022 Mental Status None recorded. Family History Relationship Description Onset Age of this Age Resolved Age Notes LastModified by Organization Details LastModified Time Mother Malignant tumor of breast Not available 2023 16:03:27 Father Diabetes mellitus Not available 2023 16:04:24 Father Heart disease Not available 2023 16:04:34 Father Hypertensive disorder Not available 2023 16:04:44 Father Cerebrovascu lar accident Not available 16:04:56 Daughter Bypass of stomach Not available 2023 16:06:48 Daughter Hypertensive disorder Not available 2023 16:06:53 Medical History Condition Response NERVE DISEASE N BLINDNESS N RHEUMATIC FEVER N KIDNEY STONES N BLADDER PROBLEMS N MRSA N OTHER # 1 N POLIO N LUNG DISEASE/DISORDER N RADIATION / CHEMOTHERAPY N COPD N Other # 2 N BLOOD DISEASES N SURGERY N EAR OR HEARING PROBLEMS N MUMPS N BOWEL PROBLEMS N DEPRESSION (INCLUDING POST ) Y STROKE/TIA N ULCERS N BENIGN PROSTATIC HYPERPLASIA N MEASLES N MYOCARDIAL INFARCTION N OBESITY N GERD/NAUSEA N ANEURYSM N URINARY/BLADDER/KIDNEY PROBLEMS Y CORONARY ARTERY DISEASE (CAD) N ADDICTION CONCERNS N ENDOMETRIOSIS N Impotence N USE OF BLOOD THINNERS N SKIN PROBLEMS N GASTROINTESTINAL DISORDER N PERIPHERAL VASCULAR DISEASE N MUSCLE,JOINT OR BONE PROBLEMS Y GASTROINTESTINAL BLEEDING N BLOOD CLOTS N ASTHMA N CATARACTS N ERECTILE DYSFUNCTION N VARICOSITIES N GI PROBLEMS N Low Testosterone N INFERTILITY N AIDS/HIV N CHEMOTHERAPY / RADIATION N LIVER DISEASE N MALE HYPOGONADISM N HYPERTENSION Y Deficiency N ANXIETY DISORDER Y BLOOD TRANSFUSION N ANEMIA/BLOOD DISORDER N CHRONIC EAR INFECTIONS N BRONCHITIS N TUBERCULOSIS N GLAUCOMA N FOOT PROBLEM N DIVERTICULITIS N SLEEP APNEA N CHICKENPOX N INFECTIOUS DISEASE N HEART ARRHYTHMIA N PROSTATE N INSOMNIA N HIGH CHOLESTEROL / HYPERLIPIDEMIA Y HYPERTHYROIDISM N EYE PROBLEMS N NEUROLOGICAL PROBLEMS N EDEMA N CHRONIC PAIN SYNDROME N HYPOTHYROIDISM N CAROTID BLOCKAGE N CONSTIPATION N BACK / NECK PROBLEMS Y HAVE YOU BEEN HOSPITALIZED OR SEEN IN [facility] IN THE PAST YEAR ? N ATHEROSCLEROSIS N BREAST PROBLEMS N DIALYSIS N ECZEMA N OSTEOPOROSIS N ARTHRITIS Y NO SIGNIFICANT PAST MEDICAL HISTORY N APPENDICITIS N DIABETES, TYPE N BAD TEETH N ENT N HEARTBURN / REFLUX N AUTISM SPECTRUM DISORDER (ASD) N HEPATITIS / LIVER DISEASE N GOUT N SLEEP DISORDER N ALZHEIMER'S DISEASE N Brain Problems N HERPES N DEMENTIA N HEADACHES/MIGRAINES N SEIZURES/EPILEPSY N VASCULAR DISEASE N PACEMAKER N Blood Disorder N DIZZINESS N HEART DISEASE/HEART PROBLEMS N KIDNEY DISEASE N MULTIPLE SCLEROSIS N CARDIAC ARRHYTHMIA N CANCER: SPECIFY N ATRIAL FIBRILLATION N Gall Stones N PULMONARY EMBOLISM N AUTOIMMUNE DISEASE N Gynecological History Statement/Question Response Date of Last Mammogram 08/15/2021 Date of Last Colonoscopy 03/31/2016 Most Recent Bone Density 03/27/2020 Obstetrics History GPAL:G 0 P 0 0 0 0 Immunizations Vaccine Type Date Status Note Provider Nam e and Address Organization Details Recorded Time SARS-COV-2 (COVID-19) vaccine, UNSPECIFIED 1 completed Not Available [facility] 07/20/2023 05:32:36 SARS-COV-2 (COVID-19) vaccine, UNSPECIFIED 1 completed Not Available [facility] 07/20/2023 05:32:36 Tdap 1 completed Not Available [facility] 07/20/2023 05:32:36 Pneumococcal conjugate PCV20, polysaccharide [id number] conjugate, adjuvant, PF 5 completed JENNA Su - Maria [facility] 11/08/2024 17:55:24 Past Encounters Encounter ID Performer Location Encounter Start Date Encounter Closed Date Diagnosis/Indication Diagnosis SNOMED-CT Code Diagnosis ICD10 Code Diagnosis Note [id number] [facility] [place] [address] [place] [address] 01/04/2021 00:00:00 01/04/2021 13:10:29 [id number] [facility] [place] [address] [place] [address] 01/16/2021 00:00:00 01/16/2021 16:59:36 [id number] [facility] [place] [address] [facility] [address] , [place] [address] 07/05/2021 00:00:00 07/05/2021 13:15:51 [id number] [facility] [place] [address] [facility] [address] , [place] [address] 01/03/2022 00:00:00 01/03/2022 12:43:11 [id number] [facility] [place] [address] [place] [address] 01/16/2022 00:00:00 01/16/2022 14:13:52 [id number] [facility] [place] [address] [place] [address] 04/25/2022 00:00:00 04/25/2022 14:09:59 [id number] [facility] [place] [address] [facility] [address] , [place] [address] 08/22/2022 00:00:00 08/22/2022 11:24:18 [id number] Mason Paul MD [facility] [place] [address] [place] [address] y , [place] [address] 01/02/2023 11:33:41 01/02/2023 12:27:02 Essential hypertension [id number] I10 Obstructiv e sleep apnea syndrome 74691262 G47.33 Anxiety disorder 8867961 06 F41.9 Pure hypercholesterolemia [id number] E78.00 [id number] Jenifer Ehsan, [facility] Pulmonolo gy Tej Dietz [address] [place] [address] 01/16/2023 11:19:56 01/16/2023 11:57:17 Obstructive sleep apnea syndrome 36137982 G47.33 T4 home study 02/11/19 with AHI 41.8.Set up 03/31/19.D ownload today with 97% use greater than 4 hours in the last 90 days.AHI 1.1.Remain s on CPAP 14 cm H2O.She has good compliance and clinical benefit.OS A is well correctedO SA is well correctedE ncouraged 100% compliance with all sleepFollo w with PCM for labsAdvise d good sleep habits and patterns:- Set a goal for at least 7 to 8 hours of sleep time per day.-Use the bed mainly for sleep and to go to bed only when tired. If unable to fall asleep after 30 minutes, patient should get out of bed but should not engage in any activity that requires sustained mental alertness. -Maintain a regular bedtime and wake-up time even on weekends or days off of work.-Avoi d excessive naps during the daytime. If a nap is necessary, limit it to no more than 30minutes. -Minimize environmen jonh noise, bright lights, and extremes in bedroom temperatur e.-Avoid alcohol, caffeinate d beverages, and nicotine products for at least 6 hours prior to bedtime.-A void strenuous exercise and large meals for at least 4 hours prior to bedtime.Di scussed reportable signs and symptomsRT C in 1 year, PRN for concerns [id number] Sis Jacobo [facility] Deondre frank [address] [place] [address] 05/01/2023 11:36:54 05/01/2023 14:57:10 Essential hypertension 53097921 I10 Pure hypercholesterolemia 022628076 E78.00 Obesity 691928405 E66.9 Anxiety disorder 0016324 06 F41.9 Gastroesop hageal reflux disease without esophagitis 253788061 K21.9 [id number] Mason Paul MD [facility] Internal [facility] [place] [address] [place] [address] 07/24/2023 14:49:49 07/24/2023 15:28:02 Essential hypertension 03352813 I10 Rheumatoid arthritis 698 99712 M06.9 Pure hypercholesterolemia 622148972 E78.00 Venous ins ufficiency of leg 614883262 I87.2 Gastroesop hageal reflux disease without esophagitis 262716010 K21.9 Obese class III 03316720 5 E66.01 [id number] Mason Paul MD [facility] Internal [facility] [place] [address] [place] [address] y , [place] [address] 11/06/2023 11:46:18 11/06/2023 12:33:49 Essential hypertension 06881857 I10 Gastroesop hageal reflux disease without esophagitis 435941433 K21.9 Pure hypercholesterolemia 616240764 E78.00 Rheumatoid arthritis 698 38376 M06.9 Obese class III 44471061 5 E66.01 [id number] Rickey Riley MD [facility] Pulmonolo gy [address] [place] [address] 02/09/2024 14:58:47 02/10/2024 08:54:06 Obstructive sleep apnea syndrome 26363209 G47.33 [id number] Mason Paul MD [facility] Internal [place] [address] [place] [address] [place] [address] 05/12/2024 10:47:32 05/12/2024 17:27:11 Essential hypertension 77067892 I10 Pure hypercholesterolemia 027443920 E78.00 Gastroesop hageal reflux disease without esophagitis 747035831 K21.9 Rheumatoid arthritis 698 09591 M06.9 Anxiety disorder 06 F41.9 Dyspnea 753544489 R06.00 Obese class III 74105430 5 E66.01 Vitamin D deficiency 347 52553 E55.9 [id number] Mason Paul MD [facility] [address] [facility] [address] [place] [address] 11/08/2024 14:10:03 11/08/2024 14:52:33 Essential hypertension 41485316 I10 Pure hypercholesterolemia 657875731 E78.00 Rheumatoid arthritis 698 86835 M06.9 Dyspnea 636138880 R06.00 Obesity 393600994 E66.9 Hyperglycemia 03359232 R 73.9 [id number] Rickey Rliey MD [facility] Pulmonolo gy [address] [address] 11/09/2024 15:18:49 11/14/2024 14:50:31 Obstructive sleep apnea syndrome 35422471 G47.33 Asthma-chr onic obstructive pulmonary disease overlap syndrome 0248652121 7735014 J44.9 R06.00 R05.9 T78.40XA D89.9 M06.9 Health Concerns Section Related Observation LastModified by Organization Detai ls LastModified Time None Recorded Concern Status LastModified by Organization Details LastModified Time None Recorded Advance Directives Directive N: Payers Encounter Date Sequence Insurance Name Policy Number Policy Hill Covered Member ID Hill Member ID Guarantor Name 11/06/2023 1 [facility] (MEDICARE REPLACEMENT/A DVANTAGE - HMO) [id number] Autumn E Ishum [id number] Autumn E Ishum 02/09/2024 1 [facility] (MEDICARE REPLACEMENT/A DVANTAGE - HMO) [id number] Autumn E Ishum [id number] Autumn E Ishum 05/12/2024 1 [facility] (MEDICARE REPLACEMENT/A DVANTAGE - HMO) [id number] Autumn E Ishum [id number] Autumn E Ishum 11/08/2024 1 [facility] (MEDICARE REPLACEMENT/A DVANTAGE - HMO) [id number] Autumn E Ishum [id number] Autumn E Ishum 11/09/2024 1 [facility] (MEDICARE REPLACEMENT/A DVANTAGE - HMO) [id number] Autumn E Ishum [id number] Autumn E Ishum Notes Date Note Type Note Provider Name and Address Organization Details Recorded Time 4 text/html Patient Name: Autumn HallDate Of Service: Thursday ( 11.06.2023 ): 1955 Age: 67 There has been approximately a 11 lb weight gain since 07/24/2023. This represents approximately a 4.5% change in weight. Weight change attributable to lifestyle changes. Vital Signs:Blood Pressure: Sitting Rt. Arm 124/82Pulse: Sitting 84 /min and RegularRespiratory Rate: 12Height 63 in or 1.6 mWeight 253 lb or 114.8 kgBMI 44.8Temperature: 97 F or 36.1 CPulse Oximetry: 96 % at rest on no oxygen Chief Complaint: Addressed in HPI Problems or conditions discussed in the HPI were the only ones reviewed during the encounter.Only social and family history addressed in the HPI were reviewed during this encounter. Attendant(s): NoneConstitutional and Systemic Symptoms:none Medication Reconciliation: from medication list. AnnotationsLow-dose CT scan of the chest from 05/05/2022 showed no significant abnormality suggestive of underlying malignancy. Repeat low-dose CT scan in one year Colonoscopy from 06/16/2022 multiple large diverticula were noted descending colon. No evidence of any polyps or any other mass lesions noted. Follow-up in five years Venous Doppler for 10/30/2022 showed no evidence of deep vein thrombosis of either lower extremity. Significant venous insufficiency was noted the great saphenous vein bilaterally. MRI of the lumbar spine from 11/07/2022 L1-L2 there is no disc herniation bulge no. No central canal stenosis noted. L2-L3 no disc herniation. L3 L fair there is no bulge or disc herniation noted.L4-L5 disc bulge and facet arthropathy contribute to mild due to severe thecal sac compression. There is moderate right foraminal narrowing and mild left neural foraminal narrowing. Impressions were multifactorial moderate to severe thecal sac compression at L4-L5. 12/25/2022: Nerve conduction study of the lower extremity shows no evidence of any neuropathy and or radicular findings. 02/12/2023: Venous Doppler no evidence of any deep vein thrombosis lower extremities. No flow was detected in the left greater saphenous vein. 05/13/2023: Negative CT scan of the chest repeated in approximately one year. No evidence of any malignancy History of Present Illness #1. Essential Hypertension: Stage: Stage I Interval Neurological Complaints no headaches, dizziness, weakness, visual changes, ataxia, aphasia and apraxia. No shortness of breath, orthopnea or cardiovascular symptoms. No other symptoms related to end organ damage. Pressure has been under excellent control. Currently normal. No other end organ symptoms or findings. Therapy reviewed regarding management of hypertension and includes salt restriction and Amlodipine, Lasix and Losartan Potassium. #2. Hx of esophageal reflux currently stable. Hx of Complications: none The severity, duration and intensity of symptoms have improved. Frequency: most meals Treatment consists medications taken on a regular basis. Current therapy includes Protonix. There has been no nausea, eructation, vomiting, hematemesis, dysphagia and velopharyngeal insufficiency. No change in he frequency or intensity of symptoms. Has had no melena. Has had no . Discussed the possibility of trying to reduce the frequency of the use of any PPI inhibitors and try H2 antagonists to see if symptoms can be controlled with lease intensive therapy since a number of complications are associated with chronic prolonged use of PPI inhibitors. #3. Type II Hypercholesterolaemia: Currently taking medication and tolerating well. No interval complaints of any muscle pain or arthralgia. No significant liver changes with medications. Last lipid panel: fair control. Therapy reviewed regarding treatment of cholesterol management and include diet and Zocor. #4. Hx of rheumatoid arthritis. Currently stable. No additional joint swelling or deformities noted. Synovial thickening as noted below. Physical activity status unchanged. Followed by Compensator Worker: Yes. Tolerating medications well. Medications currently consistent of Hydroxychloroquine Sulfate, Leflunomide and Olumiant. #5. Hx of obesity. Currently Class 3 Obesity [place] > 40. Has tried numerous dietary support and supplements with no benefit. Instructed on the health consequences of the obese status particularly cancer - diabetes and heart disease. Discussed new modalities of weight loss including GLP-1 medications that are used to treat diabetes. Potential candidate for bariatric surgery: No. Wishes to be evaluated by Dietary: No and was offered to be evaluated and instructed by washhouse hand on weight loss diet. Active Medication ListHydroxychloroquine Sulfate 400 MG One Twice A DayXanax 0.25 MG (TABLET - ORAL) One Tid Prn For AnxietyAspirin 81 MG Once DailyPotassium Chloride 10 MEQ (TABLET, EXTENDED RELEASE - ORAL) DailyZocor 20 MG (TABLET - ORAL) Once DailyFibercon 625 MG DailyOmega-3 1400 MG DailyAmlodipine 10 MG (TABLET - ORAL) Take One Tablet DailyEffexor Xr 150 MG (CAPSULE, EXTENDED RELEASE - ORAL) One DailyLasix 20 MG (TABLET - ORAL) Once DailyLosartan Potassium 100 MG TABLET Once DailyNeurontin 300 MG (CAPSULE - ORAL) One Three Times A DayLeflunomide 20MG QdGlucosamine Chondrotin Sulfate 1500 MG Once DailyOlumiant 2 MG TABLET, FILM COATED Once DailyVitamin D WeeklyTurmeric DailyGinger DailyProtonix 40 MG TABLET, DELAYED RELEASE Once Daily Adverse Drug Reactions ReviewedNaprosyn EdemaLisinopril Abdominal Pain Vaccination and Vlhrnnyolhlp0104-57 Uxfrjhsc2036-15 Covid Moderna Surgical Onpjqko9340-40 Cervical laminectomy bone zgtlt5030-33 Cervical laminectomy bone yyqqn2864-58 Vaginal Vyyimbjtgmct5541-93 Bladder Hzzaaimvyc3188-87 Lap Ijqnoqaeuldhjwx9522-70 Lt. Foot Pxdinlv7129-85 Tubal Ligation Preventative Testing Confirmed by Our Rwwsffp8707/15/2023 ALBUMIN 4.1 G/DL N005/15/2023 LDCT 401/ MAMMOGRAM / COLONOSCOPY ( 5 YEARS ) /06/2020 DEXA SCAN Social HistorySmokes one pack daily for over 25 yearsDrinks sociallyWorks with mentally handicappedFamily HistoryMother 76 from [place] breast and Type II DiabetesFather 68 from arteriosclerotic heart disease, essential hypertension and CVAOne brother living and in good health.Menarche 16 Menopause A0 Mason Paul MD [address] [facility], [facility] [address], [place], [address], [place] - [facility] 11/06/2023 12:30:15 4 text/html Primary care/Referring provider: Mason Paul MD During the [facility] home sleep study on 02/10/19, AHI = 42.During the [facility] titration sleep study on 03/27/19, sleep onset = 11.5 minutes, REM onset = 158 minutes, PLMI = 0.0. At home since 01/16/23, the patient uses a [employer]Med AirSense 10 autoset unit with heated humidification. The patient does not need the ramp to start low and go up slowly on the pressure anymore. There is no xerostomia in a.m. There is no hose/mask condensation with water.The patient wears a nasal mask without chin strap. There is no claustrophobia, no nostril/nose bridge irritation, no facial rash, no facial numbness, no nosebleeding. The patient feels more refreshed upon waking and daytime alertness is improved. Energy levels are sustained until noon. At home, the patient sleeps from 10:30 pm to 7 am and wakes up by the cat. Snoring: moderate, since .Snorting: noChoking: noCoughing: yesGasping: yesGagging: noSighing: noWitnessed apnea: yesTwitching or jerking of leg(s), arm(s), body, head: noTeeth grinding: yesTeeth clenching: yesSleeptalking: noSleepwalking: noSleep crying: noBedwetting: noTongue/lip/gum/cheek biting: noSleeping with open mouth: yesSleep paralysis: noHypnagogic hallucinations: noHypnopompic hallucinations: noVivid dreams: noDifficulty with sleep onset: noDifficulty with sleep maintenance: yesSleep interruptions: nocturia x 3Patient wakes up with: fatigue, hoarse voice, cognitive impairment, mobility impairment, dexterity impairmentDaytime cataplexy: noMorning hypersomnolence: yesAfternoon hypersomnolence: yesCaffeine sources in diet: coffee 12 cups per day, tea 6 glasses per day, soda 2 cans per day, chocolate 1 candy bar per week Associated medical and psychiatric conditions:Congestive heart failure: noCoronary artery disease: noMyocardial infarction: noHypertension: yesStroke: noBronchial asthma: noChronic obstructive pulmonary disease: noDepression: yesBipolar disorder: noAnxiety: yesPanic disorder: noPosttraumatic stress disorder: noAttention deficit and hyperactivity disorder: noObsessive Compulsive disorder: noSchizophrenia: noSchizoaffective disorder: noPersonality disorder: noChronic analgesic use: noChronic sedative/hypnotic use: no EPWORTH SLEEPINESS SCALE (ESS) CHANCE OF DOZING SCORE0 = would never doze1 = slight chance of dozing2 = moderate chance of dozing3 = high chance of dozing SITUATION AND CHANCE OF DOZINGSitting and reading - 3Watching television - 1Sitting inactive in a public place (e.g. a theater or meeting) - 1As a passenger in a car for an hour without a break - 0Lying down to rest in the afternoon when circumstances permit - 3Sitting and talking to someone - 0Sitting quietly after lunch without alcohol - 0In a car, while stopped for a few minutes in the traffic - 0TOTAL SCORE 8Subjectively, patient has a slight chance of dozing. Rickey Riley MD [address] [place] [address], [facility] [address], [place], [address], [place] - [facility] 02/09/2024 16:08:35 4 text/html Patient Name: Autumn Haro Of Service: April ( 05.12.2024 ): 1955 Age: 68 There has been approximately a 35 lb weight gain since 11/06/2023. This represents approximately a 13.8% change in weight. Weight change attributable to lifestyle changes. Vital Signs:Blood Pressure: Sitting Rt. Arm 144/90Pulse: Sitting 78 /min and RegularRespiratory Rate: 12Height 63 in or 1.6 mWeight 288 lb or 130.6 kgBMI 51.0Temperature: 97.2 F or 36.2 CPulse Oximetry: 95 % at rest on no oxygen Chief Complaint: Addressed in HPI Problems or conditions discussed in the HPI were the only ones reviewed during the encounter.Only social and family history addressed in the HPI were reviewed during this encounter. Attendant(s): NoneConstitutional and Systemic Symptoms:none Medication Reconciliation: from medication list. AnnotationsColonoscopy from 06/16/2022 multiple large diverticula were noted descending colon. No evidence of any polyps or any other mass lesions noted. Follow-up in five years Venous Doppler for 10/30/2022 showed no evidence of deep vein thrombosis of either lower extremity. Significant venous insufficiency was noted the great saphenous vein bilaterally. MRI of the lumbar spine from 11/07/2022 L1-L2 there is no disc herniation bulge no. No central canal stenosis noted. L2-L3 no disc herniation. L3 L fair there is no bulge or disc herniation noted.L4-L5 disc bulge and facet arthropathy contribute to mild due to severe thecal sac compression. There is moderate right foraminal narrowing and mild left neural foraminal narrowing. Impressions were multifactorial moderate to severe thecal sac compression at L4-L5. 12/25/2022: Nerve conduction study of the lower extremity shows no evidence of any neuropathy and or radicular findings. 02/12/2023: Venous Doppler no evidence of any deep vein thrombosis lower extremities. No flow was detected in the left greater saphenous vein. 05/13/2023: Negative CT scan of the chest repeated in approximately one year. No evidence of any malignancy History of Present Illness #1. Essential Hypertension: Stage: Stage I Interval Neurological Complaints no headaches, dizziness, weakness, visual changes, ataxia, aphasia and apraxia. No shortness of breath, orthopnea or cardiovascular symptoms. No other symptoms related to end organ damage. Pressure has been under excellent control. Currently normal. No other end organ symptoms or findings. Therapy reviewed regarding management of hypertension and includes salt restriction, weight loss and Lasix and Losartan Potassium. #2. Type II Hypercholesterolaemia: Currently taking medication and tolerating well. No interval complaints of any muscle pain or arthralgia. No significant liver changes with medications. Last lipid panel: fair control. Therapy reviewed regarding treatment of cholesterol management and include diet and Zocor. #3. Hx of esophageal reflux currently stable. Hx of Complications: none The severity, duration and intensity of symptoms have improved. Frequency: most meals Treatment consists medications taken on a regular basis. Current therapy includes Protonix. There has been no nausea, eructation, vomiting, hematemesis, dysphagia and velopharyngeal insufficiency. No change in he frequency or intensity of symptoms. Has had no melena. Has had no . Discussed use of H2 antagonists and the possibility of trying to reduce the frequency of the use of any PPI inhibitors and try H2 antagonists to see if symptoms can be controlled with lease intensive therapy since a number of complications are associated with chronic prolonged use of PPI inhibitors. #4. Hx of rheumatoid arthritis. Currently stable. No additional joint swelling or deformities noted. Synovial thickening as noted below. Physical activity status unchanged. Followed by Compensator Worker: Yes. Tolerating medications well. Medications currently consistent of Hydroxychloroquine Sulfate, Leflunomide, Olumiant and Turmeric. #5. Anxiety Disorder: History of anxiety disorder. There has been no panic attacks. No interval complaints of any vegetative or other signs of depression. Taking Effexor Xr and Xanax. Discussed possibility of decreasing and weaning off medication. Feels that current regimen is working fine and wishes not to change the current treatment regimen. Medication not causing any sedation or cognitive dysfunction and there is no contraindication to continue current therapy. #6. Dyspnea manifested by exertional shortness of breath accompanied by some wheezing. Does have a rescue inhaler at home which is not apparently doing much good. Will set up for a set of pulmonary functions but in tahe interim will give a trial of some AirSupra two puffs q.i.d. To see if there is any improvement.: #7. Hx of obesity. Currently Class 3 Obesity [place] > 40. Has tried numerous dietary support and supplements with no benefit. Instructed on the health consequences of the obese status particularly cancer - diabetes and heart disease. Discussed other modalities of weight loss no. Potential candidate for bariatric surgery: No. Wishes to be evaluated by Dietary: No and was offered to be evaluated and instructed by washhouse hand on weight loss diet. Active Medication ListHydroxychloroquine Sulfate 400 MG One Twice A DayXanax 0.25 MG (TABLET - ORAL) One Tid Prn For AnxietyAspirin 81 MG Once DailyPotassium Chloride 10 MEQ (TABLET, EXTENDED RELEASE - ORAL) DailyZocor 20 MG (TABLET - ORAL) Once DailyOmega-3 1400 MG DailyEffexor Xr 150 MG (CAPSULE, EXTENDED RELEASE - ORAL) One DailyLasix 20 MG (TABLET - ORAL) Two DailyLosartan Potassium 100 MG TABLET Once DailyNeurontin 300 MG (CAPSULE - ORAL) One Three Times A DayLeflunomide 20MG QdGlucosamine Chondrotin Sulfate 1500 MG Once DailyOlumiant 2 MG TABLET, FILM COATED Once DailyVitamin D WeeklyTurmeric DailyGinger DailyProtonix 40 MG TABLET, DELAYED RELEASE Once Daily Adverse Drug Reactions ReviewedNaprosyn EdemaLisinopril Abdominal Pain Vaccination and Sngaibmkhcsh4097-71 Tiqjoksv9372-03 Covid Moderna Surgical Ihxqnsu8508-76 Cervical laminectomy bone fhtko1044-88 Cervical laminectomy bone sgflf6612-49 Vaginal Mvmcstcvusqm8089-77 Bladder Jmitnsqxay3246-01 Lap Wjbylsnrsktzcqh1797-53 Lt. Foot Dkhvxxo6512-16 Tubal Ligation Preventative Wcjfxng0907/15/2023 ALBUMIN 4.1 G/DL N005/15/2023 LDCT MAMMOGRAM / COLONOSCOPY ( 5 YEARS ) DEXA SCAN Social HistorySmokes one pack daily for over 25 yearsDrinks sociallyWorks with mentally handicappedFamily HistoryMother 76 from [place] breast and Type II DiabetesFather 68 from arteriosclerotic heart disease, essential hypertension and CVAOne brother living and in good health.Menarche 16 Menopause A0 TEST RESULT RANGE UNITSLIPID PANEL Date: 07/15/2023HOLESTEROL 195 140-199 MG/DLTRIGLYCERIDES 132 0-150 MG/DLHDL CHOLESTEROL 59 40- MG/DLLDL CHOLESTEROL, CALCULATED 110 0-130 MG/DLCOMPREHENSIVE METABOLIC PANEL Date: 07/15/2023SODIUM 138 137-145 MMOL/LPOTASSIUM 4.1 3.5-5.1 MMOL/LGLUCOSE 99 70-99 MG/DLBUN 12 8-19 MG/DLCREATININE 0.72 0.66-1.25 MG/DLGFR >60ALKALINE PHOSPHATASE 53 38-126 U/LALANINE AMINOTRANSFERASE 19 0-35 U/LASPARTATE AMINOTRANSFERASE 21 15-37 U/LBILIRUBIN, TOTAL 0.50 0.20-1.30 MG/DLCALCIUM 9.4 8.4-10.2 MG/DLCBC/COMPLETE BLD COUNT W/DIFF Date: 07/15/2023WHITE BLOOD CELLS 6.5 4.2-10.8 X10'3/ULHEMOGLOBIN 12.8 12.0-15.6 G/DLHEMATOCRIT 39.7 35.7-45.7 %PLATELETS 181 150-400 X10'3/UL Mason Paul MD [address] [facility], [facility] [address], [place], [address], [place] [facility] 05/12/2024 11:19:09 5 text/html Patient Name: Autumn Haro Of Service: Thursday ( 11.08.2024 ): 1955 Age: 68 There has been approximately a 33 lb weight loss since 05/12/2024. This represents approximately a 11.5% change in weight. Weight change attributable to lifestyle changes. Vital Signs:Blood Pressure: Sitting Rt. Arm 144/80Pulse: Sitting 74 /min and RegularRespiratory Rate: 18Height 64 in or 1.6 mWeight 255 lb or 115.7 kgBMI 43.8Temperature: 97 F or 36.1 CPulse Oximetry: 98 % at rest on no oxygen Chief Complaint: Addressed in HPI Problems or conditions discussed in the HPI were the only ones reviewed during the encounter.Only social and family history addressed in the HPI were reviewed during this encounter. Attendant(s): NoneConstitutional and Systemic Symptoms:none Medication Reconciliation: by patient. Ztbumevlyal50/09/2023: Nerve conduction study of the lower extremity shows no evidence of any neuropathy and or radicular findings. 02/12/2023: Venous Doppler no evidence of any deep vein thrombosis lower extremities. No flow was detected in the left greater saphenous vein. 05/13/2023: Negative CT scan of the chest repeated in approximately one year. No evidence of any malignancy 09-03-2024: MRI of the lumbar spine L1-L2 mild bilateral facet osteoarthritis with no central canal stenosis. L2-L3 the same no significant central canal stenosis. L3-L4 no significant central canal stenosis with no foraminal stenosis. L4-L5 bulging disc with annular fissure. There is severe bilateral facet osteoarthritis with mild bilateral neural foraminal stenosis and mild central canal stenosis. L5-S1 the same. Overall impression severe lower lumbar [id number]: MRI of the cervical spine showed mild central spondylolysis with stable from 03/29/2023. Anterior fusion from C5-C7 and posterior fusion procedures at C6-C7. History of Present Illness #1. Complaining of increasing degrees of shortness of breath sometimes associated with wheezing. Was given an inhaler with little in the way of any clinical improvement difficult to assess how much this is reactive airway disease and possibly related to her morbid obesity which may compromise her respiratory functions. Will set up with a computed tomography technologist and set up for pulmonary functions for further evaluation.: #2. Essential Hypertension: Stage: Stage I Interval Neurological Complaints no headaches, dizziness, weakness, visual changes, ataxia, aphasia and apraxia. No shortness of breath, orthopnea or cardiovascular symptoms. No other symptoms related to end organ damage. Pressure has been under excellent control. Currently normal. No other end organ symptoms or findings. Therapy reviewed regarding management of hypertension and includes salt restriction and Losartan Potassium. #3. Type II Hypercholesterolaemia: Currently taking medication and tolerating well. No interval complaints of any muscle pain or arthralgia. No significant liver changes with medications. Last lipid panel: no testing done recently. Therapy reviewed regarding treatment of cholesterol management and include diet and Zocor. #4. . Clinically stable but is taking PPI inhibitors on a regular basis and is under reasonably good control. There has been no change in frequency, duration or intensity of any type of reflux symptoms. #5. Hx of rheumatoid arthritis. Currently stable. No additional joint swelling or deformities noted. Synovial thickening as noted below. Physical activity status unchanged. Followed by Compensator Worker: Yes. Tolerating medications well. Medications currently consistent of Hydroxychloroquine Sulfate, Leflunomide and Turmeric. #6. Hx of obesity. Currently Class 3 Obesity [place] > 40. Has tried numerous dietary support and supplements with no benefit. Instructed on the health consequences of the obese status particularly cancer - diabetes and heart disease. Discussed other modalities of weight loss GLP-1 medications that are used to treat diabetes . Potential candidate for bariatric surgery: No. Wishes to be evaluated by Dietary: No and was offered to be evaluated and instructed by washhouse hand on weight loss diet. Active Medication ListHydroxychloroquine Sulfate 400 MG One Twice A DayXanax 0.25 MG (TABLET - ORAL) One Tid Prn For AnxietyAspirin 81 MG Once DailyPotassium Chloride 10 MEQ (TABLET, EXTENDED RELEASE - ORAL) DailyZocor 20 MG (TABLET - ORAL) Once DailyOmega-3 1400 MG DailyEffexor Xr 150 MG (CAPSULE, EXTENDED RELEASE - ORAL) One DailyLasix 20 MG (TABLET - ORAL) Two DailyLosartan Potassium 100 MG TABLET Once DailyNeurontin 300 MG (CAPSULE - ORAL) One Three Times A DayLeflunomide 20MG QdGlucosamine Chondrotin Sulfate 1500 MG Once DailyOlumiant 2 MG TABLET, FILM COATED Once DailyVitamin D WeeklyTurmeric DailyGinger DailyProtonix 40 MG TABLET, DELAYED RELEASE Once Daily Adverse Drug Reactions ReviewedNaprosyn EdemaLisinopril Abdominal Pain Vaccination and Immunization( ) 2023-08 TDAP(X) 2021-05 COVID MODERNA( ) 2023-08 SHINGRIX Surgical [id number] Cervical laminectomy bone [id number] Cervical laminectomy bone [id number] Vaginal [id number] Bladder [id number] Lap [id number] Lt. Foot [id number] Tubal Ligation Preventative Testing( ) 08/16/2024 Mammogram 08/16/2026( ) 06/03/2024 LDCT 06/03/2025( ) 07/15/2023 Albumin 4.1 G/DL N( ) 06/16/2022 Colonoscopy ( 5 Years ) 06/16/2027(X) 03/27/2020 DEXA Scan 03/27/2022 Social HistorySmokes one pack daily for over 25 yearsDrinks sociallyWorks with mentally handicappedFamily HistoryMother 76 from CA breast and Type II DiabetesFather 68 from arteriosclerotic heart disease, essential hypertension and CVAOne brother living and in good health.Menarche 16 Menopause A0 Mason Paul MD [address] [facility], [facility] [address], [place], [address], [facility] 11/08/2024 14:41:50 5 text/html Primary care/Referring provider: Mason Paul MD Patient is here to go over her ACO management. Initial development of shortness of breath: 2021 Duration of shortness of breath: 3 years Condition of shortness of breath: worsening Timing of shortness of breath: none Frequency: every waking hourLimits activities: yes Aggravating factors: walking, going up stairs, swimming Alleviating factors: rest Modified Medical [employer] (mMRC) Dyspnea Scale - Grade 2 Grade 0 ? I only get breathless with strenuous exercise? . Grade 1 ? I get short of breath when hurrying on the level or walking up a slight hill? . Grade 2 ? I walk slower than people of the same age on the level because of breathlessness or have to stop for breath when walking at my own pace on the level? . Grade 3 ? I stop for breath after walking about 100 yards or after a few minutes on the level? . Grade 4 ? I am too breathless to leave the house? or ? I am breathless when dressing? . Treatment history: Albuterol HFA as needed 2021 only Other symptoms: Drooling: no Dysarthria: no Neck pain: no Odynophagia: no Dysphagia: no Weak mastication: no Facial weakness: no Nasal speech: no Protruding tongue: no Productive cough: no Wheezing: yes Chest tightness: yes Orthopnea: no Frequent throat clearing or swallowing: yes Palpitations: no Heartburn: no Edema: yes Environmental exposures: Nicotine smoke: 1 ppd 1975-present = 49 pack years [place]: no Dye: no Dust mites: yes Mold: no Damp cellar: yes Wood burning stove: no Animal dander: chickens, parakeets, dog, cat Cockroaches: no Pollen: yes Arsenic: no Asbestos: no Beryllium: no Cadmium: no Chromium: no [place] smoke: no Diesel fumes: no Nickel: no Silica: no Soot: no During the [facility] home sleep study on 02/10/19, AHI = 42.During the [facility] titration sleep study on 03/27/19, sleep onset = 11.5 minutes, REM onset = 158 minutes, PLMI = 0.0. At home since 02/09/24, the patient uses a ResMed AirSense 10 autoset unit with heated humidification. The patient does not need the ramp to start low and go up slowly on the pressure anymore. There is no xerostomia in a.m. There is no hose/mask condensation with water.The patient wears a nasal mask without chin strap. There is no claustrophobia, no nostril/nose bridge irritation, no facial rash, no facial numbness, no nosebleeding. The patient feels more refreshed upon waking and daytime alertness is improved. Energy levels are sustained until noon. At home, the patient sleeps from 10:30 pm to 7 am and wakes up by the cat. Snoring: moderate, since .Snorting: noChoking: noCoughing: yesGasping: yesGagging: noSighing: noWitnessed apnea: yesTwitching or jerking of leg(s), arm(s), body, head: noTeeth grinding: yesTeeth clenching: yesSleeptalking: noSleepwalking: noSleep crying: noBedwetting: noTongue/lip/gum/cheek biting: noSleeping with open mouth: yesSleep paralysis: noHypnagogic hallucinations: noHypnopompic hallucinations: noVivid dreams: noDifficulty with sleep onset: noDifficulty with sleep maintenance: yesSleep interruptions: nocturia x 3Patient wakes up with: fatigue, hoarse voice, cognitive impairment, mobility impairment, dexterity impairmentDaytime cataplexy: noMorning hypersomnolence: yesAfternoon hypersomnolence: yesCaffeine sources in diet: coffee 12 cups per day, tea 6 glasses per day, soda 2 cans per day, chocolate 1 candy bar per week Associated medical and psychiatric conditions:Congestive heart failure: noCoronary artery disease: noMyocardial infarction: noHypertension: yesStroke: noBronchial asthma: noChronic obstructive pulmonary disease: noDepression: yesBipolar disorder: noAnxiety: yesPanic disorder: noPosttraumatic stress disorder: noAttention deficit and hyperactivity disorder: noObsessive Compulsive disorder: noSchizophrenia: noSchizoaffective disorder: noPersonality disorder: noChronic analgesic use: noChronic sedative/hypnotic use: no EPWORTH SLEEPINESS SCALE (ESS) CHANCE OF DOZING SCORE0 = would never doze1 = slight chance of dozing2 = moderate chance of dozing3 = high chance of dozing SITUATION AND CHANCE OF DOZINGSitting and reading - 1Watching television - 1Sitting inactive in a public place (e.g. a theater or meeting) - 0As a passenger in a car for an hour without a break - 1Lying down to rest in the afternoon when circumstances permit - 3Sitting and talking to someone - 0Sitting quietly after lunch without alcohol - 0In a car, while stopped for a few minutes in the traffic - 0TOTAL SCORE 6Subjectively, patient has a slight chance of dozing. Rickey Riley MD [address] [address], [place], [address], [facility] 11/09/2024 17:41:45 OBGyn Episode No OBEpisode recorded.
== END 2024-11-23 12:12 | disposition home or self-care (01) ==
PROVIDERS: PCP Internal Medicine; Visit Provider Internal Medicine Pulmonary Disease
DX: J44.9 Chronic obstructive pulmonary disease, unspecified (principal); D89.9 Disorder involving the immune mechanism, unspecified; M06.9 Rheumatoid arthritis, unspecified; T78.40XA Allergy, unspecified, initial encounter; X58.XXXA Exposure to other specified factors, initial encounter
CPT/HCPCS: 93306

== ENCOUNTER 2025-03-29 16:04 | Emergency (ER) | payer MEDICARE, SELFPAY ==
[2025-03-29] VITALS (16 sets, daily range): BP systolic 144–217; BP diastolic 84–139; PULSE 77–106; RESP 16–23; TEMP 36.6–36.8; O2SAT 92–100
--- NOTE | ~2025-03-29 | XR_ITS ---
XR chest 1V portable Ordering provider: Job Gray MD History: 69 years Female with . HTN . Comparison: January 27, 2019 FINDINGS: MEDIASTINUM: The cardiac silhouette is not enlarged. LUNGS: No infiltrates, effusions or pneumothorax. OTHER: No free air under the diaphragm. Degenerative changes of the spine. IMPRESSION: No acute cardiopulmonary pathology. Reviewed, dictated and finalized at location A.
--- NOTE | ~2025-03-29 | CT_ITS ---
CT brain wo con Ordering provider: Job Gray MD History: 69 years Female with . headache and HTN . Comparison: September 17, 2024 Technique: CT of the head without contrast. Radiation reduction technique utilized.The dose-length product was 605.33 mGy-cm. FINDINGS: BRAIN PARENCHYMA AND CSF SPACES: No midline shift, mass effect or hemorrhage. The brain parenchyma a nd CSF spaces are otherwise normal. Empty sella turcica. VISUALIZED PARANASAL SINUSES: Well aerated. MASTOIDS: Well aerated. BONES: The bones appear intact. SOFT TISSUES: Visualized nasopharynx is normal. Superficial soft tissues are normal. IMPRESSION: No acute intracranial findings. Reviewed, dictated and finalized at location A.
--- NOTE | 2025-03-29 16:33 | ECG_ITS ---
Test Date: 2025-03-29 16:49:39 Measurements Intervals [place] Rate: 87 P: 24 VA: 224 QRS: -2 QRSD: 81 T: 98 QT: 380 QTc: 457 Interpretive Statements SINUS RHYTHM WITH FIRST DEGREE AV BLOCK LOW QRS VOLTAGE IN PRECORDIAL LEADS LEFT VENTRICULAR HYPERTROPHY AND ST-T CHANGE POSSIBLE ANTERIOR MYOCARDIAL INFARCTION , OF INDETERMINATE AGE MINIMAL Q WAVES- INFERIOR LEADS BASELINE WANDER- V5 ABNORMAL ECG No previous ECG available for comparison Electronically Signed On 03-29-2025 18:48:19 CDT by Angus Viveros D.O.
[2025-03-29 17:07] LABS: Basophils Absolute Auto 0.1 K/mm3 (0.0-0.1); Basophils Percent Auto 0.8 % (0.2-1.2); Eosinophils Absolute Auto 0.2 K/mm3 (0-0.3); Eosinophils Percent Auto 2.3 % (0-4.4); Hematocrit 39.8 % (37.0-47.0); Hemoglobin 13.4 g/dL (12.0-15.0); Immature Granulocyte Absolute 0.01 K/mm3 (0.00-0.031); Immature Granulocyte Percent A 0.2 % (0-0.5); Lymphocytes Absolute Auto 1.95 K/mm3 (0.9-3.2); Lymphocytes Percent Auto 29.5 % (18.3-44.2); Mean Corpuscular HGB Conc 33.7 g/dl (32-36); Mean Corpuscular Hemoglobin 31.8 pg (26-34); Mean Corpuscular Volume 94.5 fl (80-100); Mean Platelet Volume 11.6 fl (7.4-10.4); Monocytes Absolute Auto 0.6 K/mm3 (0.1-0.6); Monocytes Percent Auto 9.4 % (2.6-8.5); Neutrophils Absolute Auto 3.8 K/mm3 (1.3-6.7); Neutrophils Percent Auto 57.8 % (45.5-73.1); Platelet Count Result 213 k/mm3 (150-375); Red Blood Count 4.21 M/mm3 (4.2-5.4); Red Cell Distribution Width 13.7 % (11.5-14.5); White Blood Count 6.6 K/mm3 (4.5-10.0)
--- NOTE | 2025-03-29 17:28 | ED.RECABL ---
HPI - Recheck/Abnormal Lab/Rx General Chief Complaint: Recheck/Abnormal Lab/Rx Stated Complaint: HTN Time Seen by Provider: 03/29/25 16:31 History of Present Illness HPI narrative: 69-year-old female with a past medical history including hypertension, hyperlipidemia, smoking. Patient presents to the emergency department with elevated blood pressure readings. She was at her doctor's office earlier today with blood pressures in the 190s to 200 range. She has a blood pressure diary with her and notes that she has had blood pressures in the 240s all way back through February when she started recording. She is on multiple antihypertensives and diuretics. She has noticed that she has had swelling in her legs as well as a headache, lightheadedness and chest pressure. Endorses mild headache right now but no chest pain or shortness a breath, no chest tightness, fever, chills, back pain, abdominal pain. No worsening leg swelling from baseline. She has had several changes to her medication regimen recently including a new statin but does not think her blood pressure medications were managed. She was referred from her doctor's office today for hypertensive urgency evaluation. Related Data Home Medications ?Medication ?Instructions ?Recorded ?Confirmed ?Last Taken ?Type alprazolam 0.25 mg tablet 0.25 mg PO DAILY 10/27/19 12/03/23 06/14/22 History aspirin 81 mg tablet,delayed 81 mg PO DAILY 10/27/19 12/03/23 06/15/22 History release (Adult Aspirin Regimen) docusate sodium [Stool Softener] 1 cap PO DAILY 10/27/19 12/03/23 Unknown History simvastatin 20 mg tablet 20 mg PO DAILY 10/27/19 12/03/23 06/15/22 History furosemide 20 mg tablet 20 mg PO QAM 07/27/20 12/03/23 06/15/22 History earnest root 325 mg-pyridoxine HCl 1 cap PO DAILY 07/27/20 12/03/23 Unknown History (vitamin B6) 25 mg capsule losartan 25 mg tablet 25 mg PO DAILY 07/27/20 12/03/23 06/15/22 History potassium chloride 10 mEq 20 meq PO DAILY 07/27/20 12/03/23 06/15/22 History tablet,extended release Glucosamine 1500 Complex 1 tablet PO DAILY 05/30/22 12/03/23 06/15/22 History amlodipine 10 mg tablet 5 mg PO DAILY 12/16/22 12/03/23 Unknown History venlafaxine 150 mg 300 mg PO DAILY 12/16/22 12/03/23 Unknown History capsule,extended release 24 hr (Effexor XR) Allergies Allergy/AdvReac Type Severity Reaction Status Date / Time naproxen AdvReac Swelling Verified 12/03/23 09:31 Review of Systems Review of Systems: As reviewed above in [facility] Past Medical History Medical History Osteopenia after menopause PVD (peripheral vascular disease) Smoker RICKIE (obstructive sleep apnea) Asthma Morbid obesity with BMI of 40.0-44.9, adult Hyperlipidemia Generalized osteoarthritis of multiple sites Seronegative rheumatoid arthritis of multiple sites Bilateral hand pain Neuropathy of left foot HTN (hypertension) Arthritis Anxiety Depression Allergies Surgical History Surgical History History of carpal tunnel release H/O neck surgery History of bladder surgery H/O: hysterectomy Hx of cholecystectomy H/O foot surgery H/O tubal ligation History of appendectomy Family History Family History Mother Breast cancer Bone cancer Social History Social History Smoking packs per day: 1 Smoking cigarettes per day: 20.0 Years smoked: 49 Smoking pack-years: 49.00 Smoking status: Current every day smoker Tobacco type: cigarettes Alcohol intake: current Alcohol use details: 6 drinks per year Substance use: never Substance use type: does not use Lack of Transportation: No Lack of Food: Sometimes True Current Housing: I Have Housing Concerned About Future Housing: No Difficulty Paying Gas/Electric Bills: No Difficulty Paying for Meds: YES Currently Unemployed: No Education: High School Diploma/GED Difficulty w/ Childcare or Family Care: No Living arrangements: with family Spiritual care concerns: No Exam Narrative: GENERAL: Morbidly obese but overall well-appearing not any acute distress HEAD: [Normocephalic, atraumatic.] EYES: [PERRLA and EOMI.] ENT: Nares clear, no rhinorrhea or epistaxis. Mucous membranes moist. NECK: Supple. CHEST: [Clear to auscultation. No respiratory distress.] HEART: [Regular rate and rhythm]. No murmur heard. [Normal peripheral pulses.] ABDOMEN: [Soft, nondistended], [nontender], [No rigidity or guarding] EXTREMITIES: Normal range of motion. 2+ bilateral symmetric edema SKIN: Warm, dry, no rash. NEURO: [No focal deficits]. Alert and oriented [x3.] PSYCH: [Normal mood and affect.] Course Vital Signs Vital signs: Vital Signs Temperature 36.6 C 03/29/25 16:20 Pulse Rate 98 03/29/25 16:20 Respiratory Rate 16 03/29/25 16:20 Blood Pressure 165/96 H 03/29/25 16:20 Pulse Oximetry 98 03/29/25 16:20 Oxygen Delivery Room Air 03/29/25 16:20 Temperature 36.8 C 03/29/25 16:34 Pulse Rate 94 03/29/25 18:01 Respiratory Rate 21 H 03/29/25 18:01 Blood Pressure 185/88 H 03/29/25 18:01 Pulse Oximetry 94 03/29/25 18:01 Oxygen Delivery Room Air 03/29/25 16:20 MDM - Recheck/Abnormal Lab/Rx MDM Narrative Medical decision making narrative: 69-year-old female with history of hypertension, hyperlipidemia, smoking history. She presents with elevated blood pressure readings from her doctor's office. She also had a headache. Patient has had elevated blood pressure readings on her blood pressure diary at home since last month. Blood pressure is all the way up to 240 systolic at 1 point. She has had several changes to her medications but not sure if she has had any changes to her blood pressure medicines. On examination she is morbidly obese but not any acute distress. Blood pressure is mildly elevated here 144/88, no tachycardia, fever, hypoxia. She has 2+ symmetric nonpitting edema. No signs of respiratory distress, symmetric pulses throughout both arms and legs. Differential diagnosis includes asymptomatic hypertension, asymptomatic hypertensive urgency, hypertensive crisis. Low suspicion for intracranial pathology such as hemorrhage although she does report a minor headache. Low suspicion intrathoracic process. CT of the head was ordered, CBC, CMP, troponin, EKG, chest x-ray obtained. Patient counseled on hypertension and treatment regimen including outpatient evaluation and follow-up if no emergent concerns found today and we discussed aggressive blood pressure management in the ER hospital setting and indications for such if needed. Patient comfortable with this plan. Patient's laboratory studies reassuring. No leukocytosis or anemia. Negative troponin. Electrolytes show some minor hypokalemia that was repleted with oral potassium. Normal electrolytes otherwise. Normal glucose. Normal LFTs. Normal lipase. Chest x-ray shows no acute cardiopulmonary disease. CT head without any acute intracranial findings. EKG shows sinus rhythm first-degree AV block, no ST segment elevations, depressions or inversions. Patient re-evaluated and doing well. She can be safely discharged home at this time with instructions to follow-up with her primary care provider regarding medication management and titration of her antihypertensive regimen. She is given return precautions and safely discharged. Medical Records Attestation: I reviewed the patient's medical records. Lab Data Attestation: I reviewed the patient's lab results. 03/29/25 16:57 03/29/25 16:57 Labs: Lab Results 03/29/25 Range/Units 16:57 WBC 6.6 (4.5-10.0) K/mm3 RBC 4.21 (4.2-5.4) M/mm3 Hgb 13.4 (12.0-15.0) g/dL Hct 39.8 (37.0-47.0) % MCV 94.5 (80-100) fl MCH 31.8 (26-34) pg MCHC 33.7 (32-36) g/dl RDW 13.7 (11.5-14.5) % Plt Count 213 (150-375) k/mm3 MPV 11.6 H (7.4-10.4) fl Immature Gran % (Auto) 0.2 (0-0.5) % Neut % (Auto) 57.8 (45.5-73.1) % Lymph % (Auto) 29.5 (18.3-44.2) % Sawyer % (Auto) 9.4 H (2.6-8.5) % Eos % (Auto) 2.3 (0-4.4) % Baso % (Auto) 0.8 (0.2-1.2) % Lymph # (Auto) 1.95 (0.9-3.2) K/mm3 Sawyer # (Auto) 0.6 (0.1-0.6) K/mm3 Eos # (Auto) 0.2 (0-0.3) K/mm3 Baso # (Auto) 0.1 (0.0-0.1) K/mm3 Abs Immat Gran (auto) 0.01 (0.00-0.031) K/mm3 Absolute Neuts (auto) 3.8 (1.3-6.7) K/mm3 Absolute Nucleated RBC 0.000 (0.0-0.012) K/mm3 Nucleated RBC % 0.0 (0.0-0.2) % Sodium 139 (137-145) mmol/L Potassium 3.2 L (3.4-5.0) mmol/L Chloride 105 (98-107) mmol/L Carbon Dioxide 25 (22-30) mmol/L Anion Gap 9 (4-12) mmol/L BUN 11 (7-17) mg/dL Creatinine 0.75 (0.7-1.0) mg/dL Estim Creat Clear Calc 79 ml/min Estimated GFR > 60 (59 - ) Glucose 137 H (65-110) mg/dL Calcium 9.5 (8.4-10.2) mg/dL Total Bilirubin 0.4 (0.2-1.3) mg/dL AST 34 (14-36) U/L ALT 24 (6-35) U/L Alkaline Phosphatase 68 (38-126) U/L Troponin I < 0.012 (0.000-0.034) ng/mL Total Protein 7.3 (6.3-8.2) g/dL Albumin 4.3 (3.5-5.1) g/dL Lipase 93 (23-300) U/L Imaging Data Attestation: I personally reviewed and interpreted this imaging study as follows: My impression: Impressions Head CT 03/29/25 16:44 IMPRESSION: No acute intracranial findings. Chest X-Ray 03/29/25 17:26 IMPRESSION: No acute cardiopulmonary pathology. Discharge Plan Discharge Clinical Impression: Asymptomatic hypertension Patient Disposition: Home Condition: Stable Instructions: Antibiotic Form, Chronic Hypertension (DC) Additional Instructions: All of your laboratory studies, imaging cardiac cardiovascular assessment are reassuring that your blood pressure is not causing any urgent or emergent concerns. You do need to talk to her primary care provider about titrating her blood pressure medicines as a long-term blood pressure this high can cause serious issues. Return to the emergency department if you experience stroke-like symptoms such as inability to move your arms or legs, facial droop, slurring her speech, intractable chest pain, nausea, vomiting or any other emergent concerns. Otherwise follow-up with regular doctor outpatient and call them tomorrow to establish visit. Patient Language: Tamazight Prescriptions: No Action Olumiant 2 mg tablet 2 mg PO DAILY Qty: 30 11RF cholecalciferol (vitamin D3) 1,250 mcg (50,000 unit) capsule 50,000 unit PO WEEKLY Qty: 12 0RF furosemide 20 mg tablet 20 mg PO QAM losartan 25 mg tablet 25 mg PO DAILY earnest root-pyridoxine HCl(B6) 325-25 mg capsule 1 cap PO DAILY Glucosamine 1500 Complex 1 tablet PO DAILY venlafaxine [Effexor XR] 150 mg capsule,extended release 24hr 300 mg PO DAILY simvastatin 20 mg tablet 20 mg PO DAILY aspirin [Adult Aspirin Regimen] 81 mg tablet,delayed release (DR/EC) 81 mg PO DAILY docusate sodium [Stool Softener] 1 cap PO DAILY alprazolam 0.25 mg tablet 0.25 mg PO DAILY potassium chloride 10 mEq tablet extended release 20 meq PO DAILY acetaminophen [Tylenol 8 Hour] 650 mg tablet extended release 650 mg PO Q12H Qty: 60 3RF Rx Instructions: TAKE 1 TABLET BY MOUTH EVERY 12HRS. amlodipine 10 mg tablet 5 mg PO DAILY hydroxychloroquine 200 mg tablet See Rx Instructions .ROUTE .COMPLEX Qty: 180 2RF Dose Instruction: TAKE 2 TABLETS BY MOUTH DAILY Rx Instructions: TAKE 2 TABLETS BY MOUTH DAILY. leflunomide 20 mg tablet See Rx Instructions .ROUTE .COMPLEX Qty: 90 1RF Dose Instruction: TAKE 1 TABLET BY MOUTH DAILY Rx Instructions: TAKE 1 TABLET BY MOUTH DAILY gabapentin 300 mg capsule See Rx Instructions .ROUTE .COMPLEX Qty: 300 2RF Dose Instruction: TAKE 1 CAPSULE BY MOUTH 3 TIMES DAILY Rx Instructions: TAKE 1 CAPSULE BY MOUTH 3 TIMES DAILY Follow-up/Referrals: Humberto,Chapito Davidson MD [Primary Care Provider] - Time of Disposition: 19:03
[2025-03-29 17:30] LABS: Alanine Aminotransferase 24 U/L (6-35); Albumin Level 4.3 g/dL (3.5-5.1); Alkaline Phosphatase 68 U/L (38-126); Anion Gap 9 mmol/L (4-12); Aspartate Amino Transferase 34 U/L (14-36); Bilirubin,Total 0.4 mg/dL (0.2-1.3); Blood Urea Nitrogen 11 mg/dL (7-17); Calcium 9.5 mg/dL (8.4-10.2); Carbon Dioxide 25 mmol/L (22-30); Chloride 105 mmol/L (98-107); Estimated CRCL calculation 79 ml/min; Estimated Glomerular Filt Rate > 60; Glucose 137 mg/dL (65-110); Lipase 93 U/L (23-300); Potassium 3.2 mmol/L (3.4-5.0); Sodium 139 mmol/L (137-145); Total Protein 7.3 g/dL (6.3-8.2)
[2025-03-29 17:54] LABS: Troponin I < 0.012 ng/mL (0.000-0.034)
[2025-03-29] MEDS: POTASSIUM CHLORIDE 20 MEQ ER TABLET 40 MEQ PO (17:56)
--- OUTSIDE RECORDS SUMMARY | 2025-03-29 17:59 | XMS_ITS | Data Portability ---
Author Organization [facility], Main Office Address [address] [place] [address] Care Team Providers Care Insolvency Consultant Name Role Phone MASON PAUL Primary Care Provider Assessment Encounter Date Assessment Date Assessment LastModified by Organization Details LastModified Time 11/09/2024 11/09/2024 Assessment: Hypertension Rheumatoid arthritis Mild ACO Severe OSAHS, AHI = 42 Plan: The following were reviewed and explained to the patient: Chest CT 05/12/22 lingular and BLL atelectasis Chest CT 05/13/[address] 06/03/24 no nodules PFT 01/09/22 FEV1 2.30 L (96%), BD 970 mL = 73%, TLC 4.53 L (89%), RV 1.60 L (77%), DLCO 80%, DLCO/VA 88% [facility] home sleep study 02/10/19 AHI = 42 [facility] titration sleep study 03/27/19 sleep onset = [...] done as follows: Respiratory allergen panel for [facility] Serum IgE Serum total IgG, IgG1, IgG2, IgG3, IgG4 Nlnqf-1-urweehbvwd n phenotype and level TB stimulated gamma [...] and 2-D echocardiogram Not available 11/09/2024 17:41:36 12/05/2024 12/05/2024 Assessment: Rheumatoid arthritis Mild ACO Severe OSAHS, AHI = 42 Plan: The following were reviewed and explained to the patient: Chest CT 05/12/22 lingular and BLL atelectasis Chest CT 05/13/[address] 06/03/24 no nodules PFT 01/09/22 FEV1 2.30 L (96%), BD 970 mL = 73%, TLC 4.53 L (89%), RV 1.60 L (77%), DLCO 80%, DLCO/VA 88% PFT 11/18/24 FEV1 2.01 L (89%), BD 110 mL = 6%, TLC 6.64 L (135%), RV 3.16 L (154%), DLCO 60%, DLCO/VA 69% [facility] home sleep study 02/10/19 AHI = 42 [facility] titration sleep study 03/27/19 sleep onset = 11.5 minutes, REM onset = 158 minutes, Respironics small DreamWear nasal pillows @ 14 cmH2O, PLMI = 0.0 Lab data 11/11/24 wnl 2-D echocardiogram 11/23/24 EF 60% General information on COPD was covered. COPD affects breathing. Self-care skills such as not smoking, using medications as prescribed, oxygen therapy, and knowing when to contact the healthcare provider are covered. Diaphragmatic breathing and pursed lip breathing are explained and demonstrated. Positive lifestyle changes are introduced. Following these self-care skills will help in the management of COPD so the patient can stay out of the hospital. Advised to continue not to smoke. Continue albuterol HFA as needed. Start Symbicort 160/4.5 mcg 2 puffs BID. Gargle after use. The patient does not know how to accurately administer the inhalers. Today, the patient was shown how to take these medications. The proper technique for delivering these medications was instructed. The patient expressed a clear understanding and demonstrated back how to use these medications. Without the proper technique, the patient will not reap the benefits of these medications as the contents will not reach the lower airways as [...] records to PCP for further management. Follow-up: 3 months, February 2025 Not available 12/05/2024 10:49:13 03/02/2025 03/02/2025 Assessment: Rheumatoid arthritis Mild ACO Severe OSAHS, AHI = 42 Plan: The following were reviewed and explained to the patient: Chest CT 05/12/22 lingular and BLL atelectasis Chest CT 05/13/[address] 06/03/24 no nodules PFT 01/09/22 FEV1 2.30 L (96%), BD 970 mL = 73%, TLC 4.53 L (89%), RV 1.60 L (77%), DLCO 80%, DLCO/VA 88% PFT 11/18/24 FEV1 2.01 L (89%), BD 110 mL = 6%, TLC 6.64 L (135%), RV 3.16 L (154%), DLCO 60%, DLCO/VA 69% [facility] home sleep study 02/10/19 AHI = 42 [facility] titration sleep study 03/27/19 sleep onset = 11.5 minutes, REM onset = 158 minutes, Respironics small DreamWear nasal pillows @ 14 cmH2O, PLMI = 0.0 Lab data 11/11/24 wnl 2-D echocardiogram 11/23/24 EF 60% General information on COPD was covered. COPD affects breathing. Self-care skills such as not smoking, using medications as prescribed, oxygen therapy, and knowing when to contact the healthcare provider are covered. Diaphragmatic breathing and pursed lip breathing are explained and demonstrated. Positive lifestyle changes are introduced. Following these self-care skills will help in the management of COPD so the patient can stay out of the hospital. Advised to continue not to smoke. Continue albuterol HFA as needed. Start Breztri aerosphere 160/9/4.8 mcg 2 puffs BID. Gargle after use. We will try to apply for the [employer] patient assistance program. The patient does not know how to accurately administer the inhalers. Today, the patient was shown how to take these medications. The proper technique for delivering these medications was instructed. The patient expressed a clear understanding and demonstrated back how to use these medications. Without the proper technique, the patient will not reap the benefits of these medications as the contents will not reach the lower airways as [...] in patients with chronic medical conditions. PAP compliance downloaded and interpreted x 20 minutes. Data reviewed and explained to the patient. Average apnea/hypopnea index (AHI) is 0.8. Patient used PAP > 4 hours 93% of the time. PAP is set at 14 cmH2O. PAP will remain at 14 cmH2O. Oxygen supplementation: none Keep ramp start at 7 cmH2O. Keep ramp duration at 5 minutes. Keep EPR off. Keep humidifier at level 4. Patient is benefiting from PAP therapy. Encouraged [...] Patient will setup an appointment with Provider [facility] for supplies and pressure adjustments. A major [...] records to PCP for further management. Follow-up: 3 months, May 2025 Not available 03/02/2025 12:44:08 Plan of Treatment Reminders Order Date Submit Date Provider Last Modified By Organization Details Last Modified Time Details Appointments Any 15 2024 10:30A Severino Riley MD Not available Not available Not available Lab HbA1c (hemoglob in A1c), blood 2024 025 [facility], [address] [place], [address], 03/15/2025 09:43:10 CBC w/ auto diff 2024 025 [email or web address] [facility], [address] [place], [address], 03/15/2025 09:43:09 CMP, serum or plasma 2024 025 [email or web address] [facility], [address] [place], [address], 03/15/2025 09:43:09 lipid panel, serum 2024 025 [email or web address] [facility], [address] [place], [address], 03/15/2025 09:43:09 TSH, serum or plasma 2024 025 [facility], [address] [place], [address], 03/15/2025 09:43:10 T4, free, serum 2024 025 [email or web address] [facility], [address] [place], [address], 03/15/2025 09:43:10 alpha-1-a ntitrypsi n (aat) phenotype , serum 2024 025 [facility], [address] [place], [address], 12/07/2024 13:22:29 BNP (B-type natriuret ic peptide), serum or plasma 2024 025 PADMINI [facility], [address] [place], [address], 11/27/2024 20:35:29 ige, total, serum 2024 025 [facility], [address] [place], [address], 12/07/2024 13:22:29 tb (M tuberculo sis), ifn-gamma gisel, blood 2024 025 [facility], [address] [place], [address], 12/07/2024 13:22:29 igg subclasse s 1+2+3+4, serum 2024 025 [facility], [address] [place], [address], 12/07/2024 13:22:30 respirato ry allergen panel, [facility] A, serum 2024 025 [facility] - Out[facility] Lab, [address] [place], [address], 12/07/2024 13:22:30 respirato ry allergen panel - [facility] b 2024 025 [facility] - Outpatient Lab, [address] [place], [address], 12/07/2024 13:22:30 eosinophi ls, quant, blood 2024 025 [facility] - Out[facility] Lab, [address] [place], [address], 12/07/2024 13:22:30 HbA1c (hemoglob in A1c), blood [id number] Out[facility], [address] [place], [address], 12/02/2024 13:51:45 lipid panel, serum [id number] - Outpatient Lab, [address] [place], [address], 12/02/2024 13:51:44 CMP, serum or plasma [email or web address] - Outpatient Lab, [address] [place], [address], 12/02/2024 13:51:45 TSH, serum or plasma [id number] [place] [address] - Outpatient Lab, [address] [place], [address], 12/02/2024 13:51:45 T4, free, serum [email or web address] [place] [address] - Outpatient Lab, [address] [place], [address], 12/02/2024 13:51:45 CBC w/ auto diff 2024 025 [email or web address] [facility] - Outpatient Lab, [address], [place], [address], 12/02/2024 13:51:44 Referral None recorded. Procedures None recorded. Surgeries None recorded. Imaging US, echocardi ogram, transthor acic, complete - Please call patient to schedule. 2024 025 [facility], [address] [address], [place], [address], 12/02/2024 15:37:55 Medication Orders albuterol sulfate HFA 90 mcg/actua tion aerosol inhaler 2024 025 [place] [id number], [address], [place], [id number], 03/02/2025 12:45:33 Breztri Aerospher e 160 mcg-9mcg- 4.8mcg/ac tuation HFA aerosol inhaler 2024 025 [place] [id number], [address], [place], [id number], 03/02/2025 12:46:01 albuterol sulfate HFA 90 mcg/actua tion aerosol inhaler 2024 025 [id number], [address], [place], [id number], 12/05/2024 10:34:10 Symbicort 160 mcg-4.5 mcg/actua tion HFA aerosol inhaler 2024 025 [place] [facility], [address], [place], [id number], 12/05/2024 10:34:21 albuterol sulfate HFA 90 mcg/actua tion aerosol inhaler 2024 025 [id number], [address] [place], [place], [id number], 11/09/2024 15:55:46 Patient TargetsNo targets recorded. Patient Instructions Encounter Date Encounter Id Patient Instructions Last Modified By Organization Details Last Modified Time 11/08/2024 [id number] Follow-up for dyspnea, hypertension, hyperlipidemia, hyperglycemia, rheumatoid arthritis and obesity. Will check blood work consisting of a hemoglobin A1c, lipid, thyroid panel. Was apparently told by a telephone technician she may be diabetic. Could lose weight [...] with voice recognition software. Occasional wrong-word or s ound-a-like substitutions may have occurred due to the inherent limitations of voice recognition software. Read the chart carefully and recognize, using context, where substitutions have occurred. Created: Mason Paul M.D. 11.08.2024 01:40 PM [email or web address] Not available 11/08/2024 14:40:49 11/09/2024 [id number] complete PFT w/ post bronchodilator spirometry* - Please call patient to schedule. GEORGETTE [id number] per [facility] payor portal, ref #[id number]. PADMINI Not available 12/02/2024 15:37:54 03/07/2025 [id number] Medicare wellnes s evaluation risk assessment stable. Follow-up for essential hypertension, hyperlipidemia, venous insufficiency, hyperglycemia, COPD as well as obesity class three. All clinically stable. Had to stop the metformin because of side effects related to diarrhea. Is a strong candidate for the possibility of using GLP-one inhibitors. Will send in a prescription to see if she might be able to be covered by this. He is clinically doing well otherwise. Will check blood work consisting of CBC, CMP, lipid and hemoglobin A1c. Continue on current Rx follow-up in four months Additional Orders - Directives - Recommendations 1. Call in a prescription for semaglutide for treatment of diabetes as well as obesity intolerant to metformin Follow Up: 4 Months Approximate Date: 07/05/2025 Portions of record are template driven. When necessary additional context will be provided. Additionally some portions have been created with voice recognition software. Occasional wrong-word or s ound-a-like substitutions may have occurred due to the inherent limitations of voice recognition software. Read the chart carefully and recognize, using context, where substitutions may have occurred. Created: Mason Paul M.D. 03.07.2025 02:10 PM [email or web address] Not available 03/07/2025 15:10:21 Reason for Referral None Reported. Results Created Date Observation Date Name Description Value Unit Range Abnormal Flag Note LastModifiedBy Organization Detail LastModifiedTime 11/11/1911/12/2024 IGG, SUBCL ASSES (1-4) immunoglobul in g, qn, serum 778 mg/dL 586-16 02 Not Available [facility] ([facility]) [address] [place], [address], 11/27/2024 20:35:26 11/11/19 25 11/13/2024 IGG, SUBCL ASSES (1-4) IgG, subclass 1 426 mg/dL 248-81 0 Not Available [facility] ([facility]) [address] [place], [address], 11/27/2024 20:35:26 11/11/19 25 11/13/2024 IGG, SUBCL ASSES (1-4) IgG, subclass 2 222 mg/dL 130-55 5 Not Available [facility] ([facility]) [address] [place], [address], 11/27/2024 20:35:26 11/11/19 25 11/13/2024 IGG, SUBCL ASSES (1-4) IgG, subclass 3 29 mg/dL 15-102 Not Available [facility] ([facility]) [address] [place], [address], 11/27/2024 20:35:26 11/11/19 25 11/13/2024 IGG, SUBCL ASSES (1-4) IgG, subclass 4 4 mg/dL 2-96 Not Available [facility] ([facility]) [address] [facility], [place], [address], 11/27/2024 20:35:26 11/11/19 25 11/12/2024 IMMUN OGLOB ULINS A/G/M , QN, SER immunoglobul in A, qn, serum 144 mg/dL 87-352 normal Not Available [facility] ([facility]) [address] [facility], [place], [address], 11/27/2024 20:35:27 11/11/19 25 11/12/2024 IMMUN OGLOB ULINS A/G/M , QN, SER immunoglobul in M, qn, serum 31 mg/dL 26-217 Not Available [facility] ([facility]) [address] [facility], [place], [address], 11/27/2024 20:35:27 11/11/19 25 11/12/2024 ALPHA -1-AN TITRY PSIN PHENO TYP gukit-6-gelb trypsin, serum 134 mg/dL 101-18 7 normal Not Available [facility] ([facility]) [address] [facility], [place], [address], 11/27/2024 20:35:28 11/11/19 25 11/27/2024 ALPHA -1-AN TITRY PSIN PHENO TYP phenotype (pi) MM MM Pheno type is consi dered to be norm al, produ cing max l serum level s of alpha -1-pr oteas e inhib itor and not assoc iated with clini marizol disea se. Assoc iated A1A total serum level s in other pheno types and their incid ence in the gener al popul ation are shown in the table below . Pheno type Popul ation % funct ion A-1-A T Conc. * Incid ence % bill red to MM (Typi marizol Range ) MM 86.5% 100% (96 - 189) MS 8.0% 86% (83 - 161) MZ 3.9% 61% (60 - 111) FM 0.4% 100% (93 - 191) SZ 0.3% 41% (42 - 75) SS 0.1% 64% (62 - 119) ZZ 0.05% 19% (16 - 38) FS 0.05% 70% (70 - 128) FZ Unkno wn 46% (44 - 88) FF Unkno wn Unkno wn *A-1- AT audra ntrat ion in the homoz ygous MM pheno type is taken as the refer ence max l. Perce nt defic iency in each pheno type is repor faustina relat win to this refer ence. Range s used to confi rm pheno type. Not Available [facility] ([facility]) [address] [facility], [place], [address], 11/27/2024 20:35:28 11/11/19 25 11/12/2024 QUANT IFERO N-TB GOLD PLUS quantiferon incubation Incuba tion perfor med. Not Available [facility] ([facility]) [address] [facility], [place], [address], 11/27/2024 20:35:28 11/11/19 25 11/12/2024 QUANT IFERO N-TB GOLD PLUS quantiferon criteria Commen t Quant iFERO N-TB Gold Plus is a quali tativ e indir ect test for M tuber culos is infec tion (incl uding disea se) and is inten ded for use in conju nctio n with risk asses sment , radio graph y, and other medic al and diagn ostic evalu ation s. The Quant iFERO N-TB Gold Plus resul t is deter mined by subtr actin g the Nil value from eithe r TB antig en (Ag) value . The Mitog en tube serve s as a contr ol for the test. Not Available [facility] ([facility]) [address] [facility], [place], [address], 11/27/2024 20:35:28 11/11/19 25 11/15/2024 QUANT IFERO N-TB GOLD PLUS quantiferon TB1 Ag value 0.11 IU/mL Not Available [facility] ([facility]) [address] [place], [address], 11/27/2024 20:35:28 11/11/19 25 11/15/2024 QUANT IFERO N-TB GOLD PLUS quantiferon TB2 Ag value 0.11 IU/mL Not Available [facility] ([facility]) [address] [place], [address], 11/27/2024 20:35:28 11/11/19 25 11/15/2024 QUANT IFERO N-TB GOLD PLUS quantiferon nil value 0.11 IU/mL Not Available [facility] ([facility]) [address] [place], [address], 11/27/2024 20:35:28 11/11/19 25 11/15/2024 QUANT IFERO N-TB GOLD PLUS quantiferon mitogen value >10.00 IU/mL Not Available [facility] ([facility]) [address] [facility], [place], [address], 11/27/2024 20:35:28 11/11/1911/15/2024 QUANT IFERO N-TB GOLD PLUS quantiferon- TB gold plus Negati ve negati ve No respo nse to M yana donaldsonos is antig ens detec faustina. Infec tion with M yana donaldsonos is is unlik [place], but high risk indiv idual s shoul d be consi dered for addit ional testi ng (ATS/ IDSA/ CDC Clini marizol Pract ice Guide lines , 2017) . The refer ence range is an Antig en minus Nil resul t of <0.35 IU/mL . Chemi lumin escen ce immun oassa y metho dolog y Not Available [facility] ([facility]) [address] [facility], [place], [address], 11/27/2024 20:35:28 11/11/19 25 11/12/2024 EOSIN OPHIL COUNT eos (absolute) 0.1 x10e3 /uL 0.0-0. 4 normal Not Available [facility] ([facility]) [address] [facility], [place], [address], 11/27/2024 20:35:29 11/11/19 25 11/12/2024 B-TYP E NATRI URETI C PEPTI DE B-type natriuretic peptide 48.6 pg/mL 0.0-10 0.0 Sieme ns [facility] XP metho dolog y Not Available [facility] ([facility]) [address] [facility], [place], [address], 11/27/2024 20:35:29 11/11/1911/11/2024 ALLER GENS W/TOT AL IGE AREA 8 class description Commen t Level s of Speci fic IgE Class Descr iptio n of Class ----- ----- ----- ----- ----- -- ----- ----- ----- ----- ----- < 0.10 0 Negat win 0.10 - 0.31 0/I Equiv ocal/ Low 0.32 - 0.55 I Low 0.56 - 1.40 II Moder ate 1.41 - 3.90 III High 3.91 - 19.00 IV Very High 19.01 - 100.0 0 V Very High >100. 00 Very High Not Available [facility] ([facility]) [address] [facility], [place], [address], 11/27/2024 20:35:30 11/11/19 25 11/16/2024 ALLER GENS W/TOT AL IGE AREA 8 immunoglobul in E, total 4 IU/mL 6-495 below low normal Not Available [facility] ([facility]) [address] [facility], [place], [address], 11/27/2024 20:35:30 11/11/19 25 11/16/2024 ALLER GENS W/TOT AL IGE AREA 8 M751-SiC D pteronyssinu s <0.10 kU/L class 0 Not Available [facility] ([facility]) [address] [facility], [place], [address], 11/27/2024 20:35:30 11/11/19 25 11/16/2024 ALLER GENS W/TOT AL IGE AREA 8 K329-EwU D farinae <0.10 kU/L class 0 Not Available [facility] ([facility]) [address] [facility], [place], [address], 11/27/2024 20:35:30 11/11/19 25 11/16/2024 ALLER GENS W/TOT AL IGE AREA 8 H856-DcZ CAT dander <0.10 kU/L class 0 Not Available [facility] ([facility]) [address] [facility], [place], [address], 11/27/2024 20:35:30 11/11/19 25 11/16/2024 ALLER GENS W/TOT AL IGE AREA 8 N068-HoN dog dander <0.10 kU/L class 0 Not Available [facility] ([facility]) [address] [place], [address], 11/27/2024 20:35:30 11/11/19 25 11/16/2024 ALLER GENS W/TOT AL IGE AREA 8 X026-RrR mouse urine <0.10 kU/L class 0 Not Available [facility] ([facility]) [address] [place], [address], 11/27/2024 20:35:30 11/11/19 25 11/16/2024 ALLER GENS W/TOT AL IGE AREA 8 p589-NvB bermuda grass <0.10 kU/L class 0 Not Available [facility] ([facility]) [address] [facility], [place], [address], 11/27/2024 20:35:30 11/11/19 25 11/16/2024 ALLER GENS W/TOT AL IGE AREA 8 m282-HeZ darin grass <0.10 kU/L class 0 Not Available [facility] ([facility]) [address] [place], [address], 11/27/2024 20:35:30 11/11/19 25 11/16/2024 ALLER GENS W/TOT AL IGE AREA 8 E035-ThN cockroach, hungarian <0.10 kU/L class 0 Not Available [facility] ([facility]) [address] [place], [address], 11/27/2024 20:35:30 11/11/19 25 11/16/2024 ALLER GENS W/TOT AL IGE AREA 8 G763-IqS penicillium chrysogen <0.10 kU/L class 0 Not Available [facility] ([facility]) [address] [place], [address], 11/27/2024 20:35:30 11/11/19 25 11/16/2024 ALLER GENS W/TOT AL IGE AREA 8 N930-AwD cladosporium herbarum <0.10 kU/L class 0 Not Available [facility] ([facility]) [address] [place], [address], 11/27/2024 20:35:30 11/11/19 25 11/16/2024 ALLER GENS W/TOT AL IGE AREA 8 W220-DkE aspergillus fumigatus <0.10 kU/L class 0 Not Available [facility] ([facility]) [address] [place], [address], 11/27/2024 20:35:30 11/11/19 25 11/16/2024 ALLER GENS W/TOT AL IGE AREA 8 W033-ZwM alternaria alternata <0.10 kU/L class 0 Not Available [facility] ([facility]) [address] [place], [address], 11/27/2024 20:35:30 11/11/19 25 11/16/2024 ALLER GENS W/TOT AL IGE AREA 8 Y800-RhC maple/box elder <0.10 kU/L class 0 Not Available [facility] ([facility]) [address], [place], [address], 11/27/2024 20:35:30 11/11/19 25 11/16/2024 ALLER GENS W/TOT AL IGE AREA 8 F032-RbY cedar, mountain <0.10 kU/L class 0 Not Available [facility] ([place] [facility]) [address], [place], [address], 11/27/2024 20:35:30 11/11/19 25 11/16/2024 ALLER GENS W/TOT AL IGE AREA 8 M401-RtC oak, white <0.10 kU/L class 0 Not Available [facility] ([place] [facility]) [address], [place], [address], 11/27/2024 20:35:30 11/11/19 25 11/16/2024 ALLER GENS W/TOT AL IGE AREA 8 K608-SfK elm, romanian <0.10 kU/L class 0 Not Available [facility] ([place] [facility]) [address], [place], [address], 11/27/2024 20:35:30 11/11/19 25 11/16/2024 ALLER GENS W/TOT AL IGE AREA 8 Z990-YhB walnut <0.10 kU/L class 0 Not Available [facility] ([place] [facility]) [address], [place], [address], 11/27/2024 20:35:30 11/11/19 25 11/16/2024 ALLER GENS W/TOT AL IGE AREA 8 H460-NgP maple leaf sycamore <0.10 kU/L class 0 Not Available [facility] ([facility]) [address], [place], [address], 11/27/2024 20:35:30 11/11/19 25 11/16/2024 ALLER GENS W/TOT AL IGE AREA 8 G013-EwN cottonwood <0.10 kU/L class 0 Not Available [facility] ([facility]) [address] [facility], [place], [address], 11/27/2024 20:35:30 11/11/19 25 11/16/2024 ALLER GENS W/TOT AL IGE AREA 8 Y699-VuJ yashira, white <0.10 kU/L class 0 Not Available [facility] ([facility]) [address] [facility], [place], [address], 11/27/2024 20:35:30 11/11/19 25 11/16/2024 ALLER GENS W/TOT AL IGE AREA 8 M373-AwA pecan, hickory <0.10 kU/L class 0 Not Available [facility] ([facility]) [address] [facility], [place], [address], 11/27/2024 20:35:30 11/11/19 25 11/16/2024 ALLER GENS W/TOT AL IGE AREA 8 I320-ElF white mulberry <0.10 kU/L class 0 Not Available [facility] ([facility]) [address] [facility], [place], [address], 11/27/2024 20:35:30 11/11/19 25 11/16/2024 ALLER GENS W/TOT AL IGE AREA 8 B233-QhR ragweed, short <0.10 kU/L class 0 Not Available [facility] ([facility]) [address] [facility], [place], [address], 11/27/2024 20:35:30 11/11/19 25 11/16/2024 ALLER GENS W/TOT AL IGE AREA 8 Z931-RsT thistle, cypriot <0.10 kU/L class 0 Not Available [facility] ([facility]) [address] [facility], [place], [address], 11/27/2024 20:35:30 11/11/19 25 11/16/2024 ALLER GENS W/TOT AL IGE AREA 8 G102-YqT pigweed, common <0.10 kU/L class 0 Not Available [facility] ([facility]) [address] [facility], [place], [address], 11/27/2024 20:35:30 11/11/19 25 11/16/2024 ALLER GENS W/TOT AL IGE AREA 8 P498-CuT rough marshelder <0.10 kU/L class 0 Not Available [facility] ([facility]) [address] [facility], [place], [address], 11/27/2024 20:35:30 11/18/19 25 11/18/2024 PFT, compl ete No observ ation record ed. [address] [place] [address] [facility], [place], [address], 11/18/2024 17:43:46 11/23/19 25 11/23/2024 US, echoc ardio gram No observ ation record ed. [address] [facility], [place], [address], 11/24/2024 09:46:12 12/02/19 25 11/18/2024 compl ete PFT w/ post cox south hodil ator nate metry * No observ ation record ed. [facility] (Pulmonary) [address] [place] [address] [address] [facility], [place], [address], 12/02/2024 15:37:54 12/02/19 25 11/23/2024 US, echoc ardio gram, trans thora cic, compl ete No observ ation record ed. [address] [facility], [place], [address], 12/02/2024 15:37:55 03/29/20 25 03/29/2025 CT, brain , w/wo contr ast No observ ation record ed. [address], [place], [address], 03/29/2025 18:10:23 03/29/20 25 03/29/2025 imagi ng/di shayyos tic resul t No observ ation record ed. [facility] [address] [facility] [address], [place], [address], 03/29/2025 18:30:32 Result Notes None recorded. Problems Name Problem SNOMED Code Status Onset Date Resolution Date Notes Provider Name and Address Organization Details Recorded Time Anxiety disorder 743409974 Active Not Available [facility] 3 05:32:35 Pure hyperchole sterolemia 535156566 Active Not Available [facility] 3 05:32:35 Depressive disorder 53334495 Active 2016 Not Available [facility] 3 05:32:35 Obesity 609632408 Active 2021 Not Available [facility] 3 05:32:35 Herpes zoster 8175788 Active 2021 Not Available [facility] 3 05:32:35 Essential hypertensi on 22680020 Active Not Available [facility] 3 05:32:35 Rheumatoid arthritis 56231753 Active 2019 Not Available [facility] 3 05:32:35 Obstructiv e sleep apnea syndrome 21501219 Active 2018 Not Available [facility] 3 05:32:35 Gastroesop hageal reflux disease without esophagiti s 585408235 Active 2022 Not Available [facility] 3 05:32:35 Venous insufficie ncy of leg 156602963 Active 2022 Mason Paul MD [address], [place], [address] , [employer] 3 15:12:18 Vitamin D deficiency 13416184 Active 2023 Mason Paul MD [address], [place], [address] , [employer] 4 11:18:06 Asthma-chr onic obstructiv e pulmonary disease overlap syndrome 1845791871637 9107 Active 2024 Rickey Riley MD [address], [place], [address] , [facility] [employer] [facility] 5 15:41:47 Type 2 diabetes mellitus 99198829 Active 2024 [facility] 5 12:12:47 Hyperglyce dalton 50953861 Active 2024 Mason Paul MD [address], [address], [place], [address] , [facility] [employer] [facility] 5 15:01:34 Notes:Medical History: Anxie ty/Depression Bruxism Rhinitis with postnasal drip IgE 4 IU/mL Eosinophils 100/uL AAT PiMM 134 mg% Mild ACO 5 mm RLL nodule Obesity with severe OSAHS, AHI = 42, 02/10/19, on CPAP c/o Provider Plus Hypertension EF 60% Hyperlipidemia MARY Sigmoid diverticulosis/diverticulitis Bilateral renal cysts [...] catheterization 2022 Cervical fusion 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 Procedures Surgical History Date Name Laterality Status Provider Name and Address Organization Details Recorded Time 03/27/20 20 Most Recent Bone Density completed Not Available [facility] 12/17/2022 02:34:19 03/31/20 16 Date of Last Colonoscopy completed Not Available [facility] 12/17/2022 02:34:19 Imaging Results None recorded. Procedure Notes None recorded. Medical Equipment None Reported. Allergies Allergen ID Allergen Name Allergen Category Reaction Reaction Severity Criticality Documentation Date Start Date Code Code System Note Provider Name and Address Organization Details Recorded Time 3547 sodium medicatio n Not available Not available Not available 12/17/2022 9853 RxNorm Not Available [facility] 3 02:46:24 3548 naproxen medicatio n Not available Not available Not available 12/17/2022 7258 RxNorm Not Available [facility] 3 02:46:24 3549 Vaccine product containin g only Influenza virus antigen (medicina l product) medicatio n Not available Not available Not available 12/17/2022 73212 59832 105 SNOMED Not Available [facility] 3 02:46:24 50408 metformin medicatio n diarrhea Not available [facility] 03/07/2025 6809 RxNorm Mason Paul MD [address] [facility], [facility] [address], [place], [address], [facility] [employer] 5 15:02:58 Medications Name Sig Start Date Stop Date [...] tablet twice a day by oral route. 12/05 completed Not Available Not Available Not Available Augmentin 875 mg-125 mg tablet Take 1 [...] hr TAKE 1 CAPSULE BY MOUTH DAILY 2024 active Not Available Not Available Not Avai lable promethazin e 6.25 mg-codeine 10 mg/5 mL syrup Take 5 ML EVERY 6 HOURS by oral route PRN for cough 10/07 completed Not Available Not Available Not Available penicillin V potassium 500 mg tablet 01/04 completed Not Available Not Available Not Available potassium chloride ER 10 mEq tablet,exte nded release Take 2 tablets every day by oral route. active Not Available Not Available No t Available metronidazo le 500 mg tablet TAKE [...] TAKE 1/2 TABLET BY MOUTH EVERY DAY 03/07 completed Not Available Not Available Not Available amoxicillin 875 mg tablet TAKE 1 [...] tablet TAKE 1 TABLET BY MOUTH DAILY 2024 active Not Available Not Available Not Avai lable losartan 25 mg tablet Take 2 tablets every day by oral route. 03/07 completed Not Available Not Available Not Available nitroglycer in 0.4 mg sublingual tablet [...] Available Not Available furosemide 20 mg tablet Take 2 tablets every day [...] Available Not Available No t Available Evening [place] 500 mg capsule Take 1 capsule every day by oral route. 09/07 completed Not Available Not Available Not Available Premarin 0.625 mg tablet Take 1 tablet 3 times a week by oral route. 02/24 completed Not Available Not Available Not Available rosuvastati n 20 mg tablet Take 1 tablet every day by oral route. 2024 active Not Available Not Available Not Avai lable potassium chloride ER 10 mEq tablet,exte nded release(par t/cryst) TAKE 2 TABLETS BY MOUTH DAILY 03/07 completed Not Available Not Available Not Available estradiol as directed 2013 active Not Available Not Available Not Avai lable Enbrel SureClick 50 mg/mL (1 mL) subcutaneou s pen injector 01/04 completed Not Available Not Available Not Available hydrochloro thiazide 12.5 mg tablet Take 1 tablet every day by oral route. 01/04 completed Not Available Not Available Not Available Symbicort 160 mcg-4.5 mcg/actuati on HFA aerosol inhaler Inhale 2 puffs twice a day by inhalatio n route. 2024 active Not Available Not Available Not Avai lable cholecalcif gissell (vitamin D3) 1,250 mcg (50,000 [...] Not Available Not Available No t Available Breztri Aerosphere 160 mcg-9mcg-4. 8mcg/actuat ion HFA aerosol inhaler Inhale 2 puffs twice a day by inhalatio n route. 2024 active Not Available Not Available Not Avai lable Ozempic 0.25 mg or 0.5 mg (2 mg/3 mL) subcutaneou s pen injector Inject by subcutane ous route for 28 days. active Not Available Not Available No t Available Vitals Date Recorded Body height Body mass index (BMI) Body weight Heart rate Body temperature Oxygen saturation Oxygen saturation in Arterial blood by Pulse oximetry Systolic blood pressure Diastolic blood pressure Provider Name and Address Organization Details Last Updated DateTime 5 162.56 cm 43.8 kg/m2 431433. 05 g 74 /min 97 [degF] 98 % 98 % 144 mm[Hg] 80 mm[Hg] Eliza Hollingsworth [employer] 5 14:27:54 Date Recorded Heart rate Respiratory rate Provider N jennifer and Address Organization Details Last Updated DateTime 11/09/2024 77 /min 15 /min Rickey Riley MD [address], [facility] [address], [place], [address], [employer] 11/09/2024 16:24:22 Date Recorded Body height Body mass index (BMI) Body weight Body temperature Heart rate Oxygen saturation Oxygen saturation in Arterial blood by Pulse oximetry Systolic blood pressure Diastolic blood pressure Provider Name and Address Organization Details Last Updated DateTime 5 162.56 cm 43.8 kg/m2 339811. 05 g 98.1 [degF] 77 /min 95 % 95 % 140 mm[Hg] 84 mm[Hg] Josiane Soliz MA [employer] [facility] [employer] 15:50:26 Date Recorded Heart rate Respiratory rate Provider N jennifer and Address Organization Details Last Updated DateTime 12/05/2024 75 /min 14 /min Rickey Riley MD [address], [address] [employer] 12/05/2024 10:28:44 Date Recorded Body height Body mass index (BMI) Body weight Body temperature Heart rate Oxygen saturation Oxygen saturation in Arterial blood by Pulse oximetry Systolic blood pressure Diastolic blood pressure Provider Name and Address Organization Details Last Updated DateTime 162.56 cm 45 kg/m2 064157. 2 g 98.4 [degF] 75 /min 97 % 97 % 122 mm[Hg] 84 mm[Hg] Josiane Soliz MA [facility] [employer] 10:15:12 Date Recorded Heart rate Heart rate Respiratory rate Provider Name and Address Organization Details Last Updated DateTime 03/02/2025 73 /min 73 /min 15 /min Rickey Riley MD [address], [address] [employer] 03/02/2025 12:44:32 Date Recorded Body height Body mass index (BMI) Body weight Body temperature Oxygen saturation Oxygen saturation in Arterial blood by Pulse oximetry Systolic blood pressure Diastolic blood pressure Provider Name and Address Organization Details Last Updated DateTime 5 162.56 cm 45.1 kg/m2 258591. 79 g 98.1 [degF] 95 % 95 % 122 mm[Hg] 84 mm[Hg] Josiane Soliz MA [facility] [employer] 12:20:17 Date Recorded Body height Body mass index (BMI) Body weight Heart rate Body temperature Oxygen saturation Oxygen saturation in Arterial blood by Pulse oximetry Systolic blood pressure Diastolic blood pressure Provider Name and Address Organization Details Last Updated DateTime 162.56 cm 45.1 kg/m2 519379 g 95 /min 97 [degF] 98 % 98 % 142 mm[Hg] 100 mm[Hg] Eliza Hollingsworth [place] - [facility] 14:52:25 Social History Question Answer Notes LastModified by Organizat ion Details LastModified Time Tobacco Smoking Status Current Every Day Smoker Not Available [facility] 12/17/2022 02:29:58 Do You Have An Advance Directive? No [id number] Information not available 12/17/2022 What Is Your Level Of Caffeine Consumption? Occasional Information not available 11/09/2024 How Much Tobacco Do You Chew? None MIGRATION.66948 88513 Information not available 12/17/2022 In The 14 Days Before Symptom Onset, Have You Had Close Contact With A Laboratory-confi rmed COVID-19 While That Case Was Ill? No MIGRATION.67636 98688 Information not available 12/17/2022 In The 14 Days Before Symptom Onset, Have You Had Close Contact With A Person Who Is Under Investigation For COVID-19 While That Person Was Ill? No MIGRATION.34952 74973 Information not available 12/17/2022 What Type Of Diet Are You Following? REGULAR MIGRATION.62095 72773 Information not available 12/17/2022 Do You Have An Electrostatic Air Filter? No Information not available 11/09/2024 Have There Been Any Changes To Your Family Or Social Situation? No MIGRATION.87216 37150 Information not available 12/17/2022 What Is The Fluoride Status Of Your Home? Unknown MIGRATION.59013 26775 Information not available 12/17/2022 Do You Have A Humidifier? No Information not available 11/09/2024 Do You Use Insect Repellent Routinely? No MIGRATION.38810 78098 Information not available 12/17/2022 Where Do You Live? [place] MIGRATION.46959 04702 Information not available 12/17/2022 Do You Have A Medical Power Of Instructional Specialist? No MIGRATION.15249 12768 Information not available 12/17/2022 Do You Have Moisture Problems In Your Home? No Information not available 11/09/2024 What Was The Date Of Your Most Recent Tobacco Screening? 03/02/2025 Information not available 03/02/2025 Do You Have Any Pets? Yes MIGRATION.23780 83207 Information not available 12/17/2022 What Is Your Relationship Status? MIGRATION.37346 74745 Information not available 12/17/2022 Do You Use Your Seat Belt Or Car Seat Routinely? Yes MIGRATION.83467 01847 Information not available 12/17/2022 Do You Have Smoke And Carbon Monoxide Detectors In Your Home? Yes MIGRATION.33911 44255 Information not available 12/17/2022 At What Age Did You Start Smoking Tobacco? 17 MIGRATION.70312 22774 Information not available 12/17/2022 Are You Passively Exposed To Smoke? Yes MIGRATION.17999 59634 Information not available 12/17/2022 How Much Tobacco Do You Smoke? 0.5 PPD Information not available 12/05/2024 Do You Use Sunscreen Routinely? No MIGRATION.50182 04554 Information not available 12/17/2022 Have You Recently Traveled Abroad? No MIGRATION.82933 43671 Information not available 12/17/2022 Do You Have Any Dietary Restrictions? No MIGRATION.64415 49158 Information not available 12/17/2022 Sex: Unknown Functional Status Question Answer Note LastModified by Organizat ion Details LastModified Time Do you use any illicit or recreational drugs? No Information not available 11/09/2024 What is your level of alcohol consumption? Occasional MIGRATION.713899 4010 Information not available 12/17/2022 Do you or have you ever used smokeless tobacco? Never used smokeless tobacco MIGRATION.421687 7774 Information not available 12/17/2022 Have you been exposed to chemicals or toxins? not that aware of Information not available 11/09/2024 Do you or have you ever used e-cigarettes or vape? Never used electronic cigarettes MIGRATION.462964 4193 Information not available 12/17/2022 What is your exercise level? None MIGRATION.945436 6950 Information not available 12/17/2022 Mental Status None [...] available 2023 16:06:53 Medical History Condition Response BLINDNESS N NERVE DISEASE N RHEUMATIC FEVER N BLADDER PROBLEMS N KIDNEY STONES N MRSA N OTHER # 1 N [...] HAVE YOU BEEN HOSPITALIZED OR SEEN IN [facility] IN THE PAST YEAR ? N ATHEROSCLEROSIS [...] (COVID-19) vaccine, UNSPECIFIED 1 completed Not Available [facility] 07/20/2023 05:32:36 SARS-COV-2 (COVID-19) vaccine, UNSPECIFIED 1 completed Not Available [facility] 07/20/2023 05:32:36 Tdap 1 completed Not Available [facility] 07/20/2023 05:32:36 Pneumococcal conjugate PCV20, polysaccharide TXV768 conjugate, adjuvant, PF 5 completed JENNA Su - [facility] [employer] 11/08/2024 17:55:24 Past Encounters Encounter ID Performer Location Encounter Start Date Encounter Closed Date Diagnosis/Indication Diagnosis SNOMED-CT Code Diagnosis ICD10 Code Diagnosis Note [id number] Mason Paul MD [facility] [place] Internal Med [place] [address] [place] [address] 01/04/2021 00:00:00 01/04/2021 13:10:29 [id number] S_Histor ic_Gateway S_[facility]G Pul[facility] [place] [address] [place] [address] 01/16/2021 00:00:00 01/16/2021 16:59:36 [id number] Mason Paul MD [facility] [place] Internal Med [facility] [address] [place] [address] 07/05/2021 00:00:00 07/05/2021 13:15:51 [id number] Mason Paul MD [facility] [place] Internal Med [address] [place] [address] 01/03/2022 00:00:00 01/03/2022 12:43:11 [id number] S_Histor ic_Gateway S_[facility]G Pul[facility] [place] [address] [place] [address] 01/16/2022 00:00:00 01/16/2022 14:13:52 [id number] Mason Paul MD [facility] Internal Med [place] [address] [facility] [place] [address] 04/25/2022 00:00:00 04/25/2022 14:09:59 [id number] Mason Paul MD [facility] Internal Med [place] [address] [facility] [place] [address] 08/22/2022 00:00:00 08/22/2022 11:24:18 [id number] Mason Paul MD [facility] Internal Med [place] [address] [facility] [place] [address] 01/02/2023 11:33:41 01/02/2023 12:27:02 Essential hypertension 89227032 I10 Obstructiv e sleep apnea syndrome 99993220 G47.33 Anxiety disorder 9030066 06 F41.9 Pure hypercholesterolemia 235845915 E78.00 [id number] Jenifer Moser, [facility] Pul[facility] [place] [address] [place] [address] 01/16/2023 11:19:56 01/16/2023 11:57:17 Obstructive sleep apnea syndrome 59135433 G47.33 T4 home study 02/11/19 with AHI [...] C in 1 year, PRN for concerns [id number] Mason Paul MD [facility] Internal [facility] Deondre [place] [address] [place] [address] [place] [address] 05/01/2023 11:36:54 05/01/2023 14:57:10 Essential hypertension 24940868 I10 Pure hypercholesterolemia 942232963 E78.00 Obesity 847165948 E66.9 Anxiety disorder 8513783 06 F41.9 Gastroesop hageal reflux disease without esophagitis 932608094 K21.9 [id number] Mason [facility] Deondre frank [address] [place] [address] [place] [address] 07/24/2023 14:49:49 07/24/2023 15:28:02 Essential hypertension 72560581 I10 Rheumatoid arthritis 698 27753 M06.9 Pure hypercholesterolemia 820330269 E78.00 Venous ins ufficiency of leg 364466815 I87.2 Gastroesop hageal reflux disease without esophagitis 800139602 K21.9 Obese class III 34123610 5 E66.01 [id number] Mason Paul MD [facility] Internal [facility] [address] [place] [address] [place] [address] 11/06/2023 11:46:18 11/06/2023 12:33:49 Essential hypertension 74742291 I10 Gastroesop hageal reflux disease without esophagitis 045445536 K21.9 Pure hypercholesterolemia 498676541 E78.00 Rheumatoid arthritis 698 22944 M06.9 Obese class III 47022117 5 E66.01 [id number] Rickey Riley MD [facility] [place] Pul[address]olo [address], [facility] [address] [place] [address] 02/09/2024 14:58:47 02/10/2024 08:54:06 Obstructive sleep apnea syndrome 40588037 G47.33 [id number] Mason Paul MD [facility] [place] Internal Med [facility] [address] [facility] , [place] [address] 05/12/2024 10:47:32 05/12/2024 17:27:11 Essential hypertension 04545215 I10 Pure hypercholesterolemia 730722707 E78.00 Gastroesop hageal reflux disease without esophagitis 970534044 K21.9 Rheumatoid arthritis 698 03657 M06.9 Anxiety disorder 7525646 06 F41.9 Dyspnea 080577131 R06.00 Obese class III 51925534 5 E66.01 Vitamin D deficiency 347 51420 E55.9 [id number] Mason Paul MD S_G Primary Care [facility] [address] [facility] [address] [place] [address] 11/08/2024 14:10:03 11/08/2024 14:52:33 Essential hypertension 37986160 I10 Pure hypercholesterolemia 978480539 E78.00 Rheumatoid arthritis 698 08563 M06.9 Dyspnea 520253486 R06.00 Obesity 081213137 E66.9 Hyperglycemia 04494965 R 73.9 [id number] Rickey Riley MD Cathie_[address] [address] 11/09/2024 15:18:49 11/14/2024 14:50:31 Obstructive sleep apnea syndrome 40820132 G47.33 Asthma-chr onic obstructive pulmonary disease overlap syndrome 2876058749 5053893 J44.9 R06.00 R05.9 T78.40XA D89.9 M06.9 [id number] Rickey Riley MD Cathie_[address] [address] 12/05/2024 09:41:15 12/05/2024 11:26:51 Obstructive sleep apnea syndrome 25544088 G47.33 Asthma-chr onic obstructive pulmonary disease overlap syndrome 0388452348 7361522 J44.9 R06.00 R05.9 T78.40XA D89.9 M06.9 [id number] Rickey Riley MD S_GMG Pulmonolo gy [place] [address] [place] [address] [address] [place] [address] 03/02/2025 12:02:10 03/06/2025 16:05:00 Obstructive sleep apnea syndrome 05095048 G47.33 Asthma-chr onic obstructive pulmonary disease overlap syndrome 1084477146 4500233 J44.9 [id number] Mason Paul MD S_GMG Internal Med [facility] [address] [facility] [address] [place] [address] 03/07/2025 14:35:31 03/07/2025 15:17:06 Essential hypertension 05568347 I10 Pure hypercholesterolemia 749184287 E78.00 Venous ins ufficiency of leg 942039434 I87.2 Hyperglycemia 82066402 R 73.9 Obesity 471323558 E66.9 Asthma-chr onic obstructive pulmonary disease overlap syndrome 5339969602 4553209 J44.9 General ex amination of patient 030702101 Z00.00 Health Concerns Section Related Observation LastModified by Organization Detai ls LastModified Time None Recorded Concern Status LastModified by Organization Details LastModified Time None Recorded Advance Directives Directive N: Payers Encounter Date Sequence Insurance Name Policy Number Policy Hill Covered Member ID Hill Member ID Guarantor Name 11/08/2024 1 [facility] (MEDICARE REPLACEMENT/A DVANTAGE - HMO) [id number] Autumn E Ishum [id number] Autumn E Ishum 11/09/2024 1 [facility] (MEDICARE REPLACEMENT/A DVANTAGE - HMO) [id number] Autumn E Ishum [id number] Autumn E Ishum 12/05/2024 1 [facility] (MEDICARE REPLACEMENT/A DVANTAGE - HMO) [id number] Autumn E Ishum [id number] Autumn E Ishum 03/02/2025 1 [facility] (MEDICARE REPLACEMENT/A DVANTAGE - HMO) [id number] Autumn E Ishum [id number] Autumn E Ishum 03/07/2025 1 [facility] (MEDICARE REPLACEMENT/A DVANTAGE - HMO) [id number] Autumn E Ishum [id number] Autumn E Ishum Notes Date Note Type Note Provider Name and Address Organization Details Recorded Time 11/08/19 25 text/htm l Patient Name: Autumn Haro Of Service: Thursday [...] and Systemic Symptoms:none Medication Reconciliation: by patient. Irwimkcukzq03/09/2023: Nerve conduction study of the lower extremity [...] the same. Overall impression severe lower lumbar mksmkqnysnqyq84-01-0189: MRI of the cervical spine showed mild [...] respiratory functions. Will set up with a pourer crane ladle and set up for pulmonary functions for [...] below. Physical activity status unchanged. Followed by [employer]: Yes. Tolerating medications well. Medications currently consistent of Hydroxychloroquine Sulfate, Leflunomide and Turmeric. #6. Hx of obesity. Currently Class 3 Obesity [place] > 40. Has tried numerous dietary support [...] offered to be evaluated and instructed by composite bond worker on weight loss diet. Active Medication ListHydroxychloroquine [...] 2021-05 COVID MODERNA( ) 2023-08 [facility] Qxcsxdg1070-33 Cervical laminectomy bone xyhqp5140-53 Cervical laminectomy bone xdmfn4957-64 Vaginal Nuaodoxwbbve4651-73 Bladder Xdptkjfark1644-07 Lap Rjfcublexepxoei8609-68 Lt. Foot Znvcojy0537-25 Tubal Ligation Preventative Testing( ) 08/16/2024 Mammogram [...] 14 Menopause A0 Mason Paul MD [address] [facility], [facility] [address], [place], [address], [facility] [employer] 11/08/2024 14:41:50 11/09/19 25 text/htm l Primary care/Referring provider: Mason Paul MD Patient is here to go over her ACO management. Initial development of shortness of breath: 2021 Duration of shortness of breath: 3 years Condition of shortness of breath: worsening Timing of shortness of breath: none Frequency: every waking hourLimits activities: yes Aggravating factors: walking, going up stairs, swimming Alleviating factors: rest Modified [employer] [place] (mMRC) Dyspnea Scale - Grade 2 Grade 0 I only get breathless with strenuous exercise . Grade 1 I get short of breath when hurrying on the level or walking up a slight hill . Grade 2 I walk slower than people of the same age on the level because of breathlessness or have to stop for breath when walking at my own pace on the level . Grade 3 I stop for breath after walking about 100 yards or after a few minutes on the level . Grade 4 I am too breathless to leave the house or I am breathless when dressing . Treatment history: Albuterol HFA as needed [...] 1 ppd 1975-present = 49 pack years [place]: no Dye: no Dust mites: yes Mold: no Damp cellar: yes Wood burning stove: no Animal dander: chickens, parakeets, dog, cat Cockroaches: no Pollen: yes Arsenic: no Asbestos: no Beryllium: no Cadmium: no Chromium: no [place] smoke: no Diesel fumes: no Nickel: no Silica: no Soot: no During the [facility] home sleep study on 02/10/19, AHI = 42.During the [facility] titration sleep study on 03/27/19, sleep onset [...] slight chance of dozing. Rickey Riley MD [address] [place] [address], [id number], [place] - [facility] MD [employer] 11/09/2024 17:41:45 12/05/19 25 text/htm l Primary care/Referring provider: Mason Paul MD Patient is here to go over her ACO management. Initial development of shortness of breath: uration of shortness of breath: 3 yearsCondition of shortness of breath: stableTiming of shortness of breath: noneFrequency: every waking hourLimits activities: yesAggravating factors: walking, going up stairs, swimmingAlleviating factors: rest Modified [employer] [place] (mMRC) Dyspnea Scale - Grade 2Grade 0 I only get breathless with strenuous exercise .Grade 1 I get short of breath when hurrying on the level or walking up a slight hill .Grade 2 I walk slower than people of the same age on the level because of breathlessness or have to stop for breath when walking at my own pace on the level .Grade 3 I stop for breath after walking about 100 yards or after a few minutes on the level .Grade 4 I am too breathless to leave the house or I am breathless when dressing . Treatment history: Albuterol HFA as needed 2021 only Other symptoms:Drooling: noDysarthria: noNeck pain: noOdynophagia: noDysphagia: noWeak mastication: noFacial weakness: noNasal speech: noProtruding tongue: noProductive cough: noWheezing: yesChest tightness: yesOrthopnea: noFrequent throat clearing or swallowing: yesPalpitations: noHeartburn: noEdema: yes Environmental exposures:Nicotine smoke: 1 ppd 1976-present = 49 pack yearsPaint: noDye: noDust mites: yesMold: noDamp cellar: yesWood burning stove: noAnimal dander: chickens, parakeets, dog, catCockroaches: noPollen: yesArsenic: noAsbestos: noBeryllium: noCadmium: noChromium: noCoal smoke: noDiesel fumes: noNickel: noSilica: noSoot: no During the [facility] home sleep study on 02/10/19, AHI = 42.During the [facility] titration sleep study on 03/27/19, sleep onset = 11.5 minutes, REM onset = 158 minutes, PLMI = 0.0. At home since 11/09/24, the patient uses a ResMed AirSense 10 [...] AND CHANCE OF DOZINGSitting and reading - 2Watching television - 0Sitting inactive in a public place (e.g. a theater or meeting) - 0As a passenger in a car for an hour without a break - 0Lying down to rest in the afternoon when circumstances permit - 3Sitting and talking to someone - 0Sitting quietly after lunch without alcohol - 0In a car, while stopped for a few minutes in the traffic - 0TOTAL SCORE 5Subjectively, patient has a slight chance of dozing. Rickey Riley MD [address] [place] [address], [facility] [address], [place], [address], [place] - [facility] [employer] 12/05/2024 10:51:55 03/02/20 25 text/htm l Primary care/Referring provider: Mason Paul MD CC: I never filled the Symbicort HFA prescription as it costs $200. Patient is here to go over her ACO management. Initial development of shortness of breath: uration of shortness of breath: 3 yearsCondition of shortness of breath: stableTiming of shortness of breath: noneFrequency: every waking hourLimits activities: yesAggravating factors: walking, going up stairs, swimmingAlleviating factors: rest Modified [employer] [place] (mMRC) Dyspnea Scale - Grade 2Grade 0 I only get breathless with strenuous exercise .Grade 1 I get short of breath when hurrying on the level or walking up a slight hill .Grade 2 I walk slower than people of the same age on the level because of breathlessness or have to stop for breath when walking at my own pace on the level .Grade 3 I stop for breath after walking about 100 yards or after a few minutes on the level .Grade 4 I am too breathless to leave the house or I am breathless when dressing . Treatment history: Albuterol HFA as needed 2021 only Other symptoms:Drooling: noDysarthria: noNeck pain: noOdynophagia: noDysphagia: noWeak mastication: noFacial weakness: noNasal speech: noProtruding tongue: noProductive cough: noWheezing: yesChest tightness: yesOrthopnea: noFrequent throat clearing or swallowing: yesPalpitations: noHeartburn: noEdema: yes Environmental exposures:Nicotine smoke: 1 ppd 1975-present = 49 pack yearsPaint: noDye: noDust mites: yesMold: noDamp cellar: yesWood burning stove: noAnimal dander: chickens, parakeets, dog, catCockroaches: noPollen: yesArsenic: noAsbestos: noBeryllium: noCadmium: noChromium: noCoal smoke: noDiesel fumes: noNickel: noSilica: noSoot: no During the [facility] home sleep study on 02/10/19, AHI = 42.During the [facility] titration sleep study on 03/27/19, sleep onset = 11.5 minutes, REM onset = 158 minutes, PLMI = 0.0. At home since 12/18/24, the patient uses a ResMed AirSense 11 autoset unit with heated humidification. The patient does not need the ramp to start low and go up slowly on the pressure anymore. There is no xerostomia in a.m. There is no hose/mask condensation with water.The patient wears a ResMed small AirFit N30 nasal mask without chin strap. There is [...] AND CHANCE OF DOZINGSitting and reading - 2Watching television - 1Sitting inactive in a public place (e.g. a theater or meeting) - 0As a passenger in a car for an hour without a break - 1Lying down to rest in the afternoon when circumstances permit - 2Sitting and talking to someone - 0Sitting quietly after lunch without alcohol - 1In a car, while stopped for a few minutes in the traffic - 0TOTAL SCORE 7Subjectively, patient has a slight chance of dozing. Rickey Riley MD [address] [place] [address], [address] [address], [place], [address], [facility] - S MD [employer] 03/02/2025 12:47:08 05/20/20 25 text/htm l Patient Name: Autumn Haro Of Service: Thursday ( 03.07.2025 ): 1955 Age: 69 There has been approximately a 7.5 lb weight gain since 11/08/2024. This represents approximately a 2.9% change in weight. Weight change attributable to lifestyle changes. Vital Signs:Blood Pressure: Sitting Rt. Arm 142/100Pulse: Sitting 95 /min and RegularRespiratory Rate: 16Height 64 in or 1.6 mWeight 262.5 lb or 119.1 kgBMI 45.1Temperature: 97 F or 36.1 CPulse Oximetry: 98 % at rest on no oxygen Chief Complaint: Addressed in HPI Problems or conditions discussed in the HPI were the only ones reviewed during the encounter.Only social and family history addressed in the HPI were reviewed during this encounter. A significant, separate E/M service was performed to evaluate the current and new problems. Attendant(s): NoneConstitutional and Systemic Symptoms:none Medication Reconciliation: from medication list. Wqsphxwzjwz99/27/2023: Venous Doppler no evidence of any deep [...] the same. 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 Anterior fusion from C5-C7 and posterior fusion procedures at C6-C7. 11-18-2024: PFTs normal spirometry with no evidence of any obstructive abnormality. No improvement after inhaling a single dose of albuterol. Total lung capacity is increased with normal residual volume. 11-23-2024: Echocardiogram shows estimated ejection fraction 60 65%. No other significant valvular abnormalities noted. History of Present Illness Reviewed the findings of the preventative health visit. Addressed all areas with the patient, patient's family or caregivers. Preventative examinations and testing immunizations - vaccinations, mammograms, LDCT thorax and DEXA Scan all reviewed and ordered where patient was amenable to the recommendations. Cognitive function see HPI but demonstrated no overall change in cognitive status . Depression addressed and where necessary medications were adjusted or instituted. End of life and living will briefly discussed with patient and where these can be filled out and legally executed. Other blood and imaging studies were ordered if considered necessary. Other recommendations may be found in the encounter note. #1. Essential Hypertension: Stage: Stage I Interval Neurological Complaints no headaches, dizziness, weakness, visual changes, ataxia, aphasia and apraxia. No shortness of breath, orthopnea or cardiovascular symptoms. No other symptoms related to end organ damage. Pressure has been under fair control. Currently elevated and instructed to recheck in office in two weeks. No other end organ symptoms or findings. Therapy reviewed regarding management of hypertension and includes salt restriction and Medication. #2. Type II Hypercholesterolaemia: Currently taking medication and tolerating well. No interval complaints of any muscle pain or arthralgia. No significant liver changes with medications. Last lipid panel: fair control. Therapy reviewed regarding treatment of cholesterol management and include diet and Zocor. #3. Glucose Intolerance: Hx of glucose intolerance controlled with diet. No interval complaints of any polyuria, polyphagia or polydipsia. No nocturia. There has been no weight loss or other constitutional symptoms. Medications reviewed regarding diabetic management and include diet only. Last HAIC: Emphysema #4. COPD: Hx of no interval change currently stable. There has been Moderate in exercise tolerance an shortness of breath. No change in sputum production, color or consistency. No fever, chills, weight loss or other constitutional symptoms. Gold Scale: normal walking. MRC Scale: currently smoking and instructed once again on cessation techniques. Smoking: Albuterol Sulfate Hfa and Breztri Current medications: No Using nebulizer Treatments: does not use supplemental oxygen. Uses Increase #5. Venous Insufficiency: Hx of venous insufficiency of the lower legs. Class 3 Obesity [place] > 40 in swelling, varicosities, erythema or ulcerations. No shortness of breath or other cardiopulmonary symptoms. #6. Hx of obesity. Currently GLP-1 medications that are used to treat diabetes. Has tried numerous dietary support and supplements with no benefit. Instructed on the health consequences of the obese status particularly cancer - diabetes and heart disease. Discussed other modalities of weight loss No . Potential candidate for bariatric surgery: No and was offered to be evaluated and instructed by composite bond worker on weight loss diet. Wishes to be evaluated by Dietary: No and was offered to be evaluated and instructed by composite bond worker on weight loss diet. Wellness Evaluation PHQ-2 Score Last Two Weeks Last Two Weeks: 0: Not at all 1: Several Days 2: More than half 3: Almost Every day #1. Little interest or pleasure in doing things Score: 0#2. Feeling down, depressed, or hopeless Score: 0Score 0FAST Stage: 1 No functional decline Basic ADLS Ambulation Normal YesEating YesBed Transfer YesWalker NoCane NoFalls NoMultiple Falls NoBathing and Showering YesDressing YesFeeding YesFunctional Mobility YesPersonal Hygiene YesToilet Hygiene YesHome Safety Yes Instrumental ADLS House Work YesTaking Medications YesShopping YesTelephone YesUsing Technology YesTransportation YesPreparing Meals Yes Additional Topics Advanced Directives DiscussedLiving Will Discussed Mini Mental Status Exam Time Score: 5Location Score: 5Registration Score: 3Attention Score: 4Recall Score: 3Language Score: 2Repetition Score: 1Sentence Score: 1Reading Score: 1Pentagons Score: 0Command Score: 3 28 Normal Social and Physical Activities Drinking History: NoneExercise 20 Minutes per Week: No, do not exercise muchDifficulty Driving Car: NoSmoking History: Yes, cigarettes and I might QuitOther Problems: None,Falling,Orthostatic,Trou ble Eating,Teeth Denture Problems,Problems using Telephone,Tiredness or fatigue No Living Will on File! Active Medication ListXanax 0.25 MG (TABLET - ORAL) One Tid Prn For AnxietyAspirin 81 MG Once DailyPotassium Chloride 10 MEQ (TABLET, EXTENDED RELEASE - ORAL) DailyZocor 20 MG (TABLET - ORAL) Once DailyOmega-3 1400 MG DailyEffexor Xr 150 MG (CAPSULE, EXTENDED RELEASE - ORAL) One DailyLasix 20 MG (TABLET - ORAL) Two DailyLosartan Potassium 100 MG TABLET Once DailyNeurontin 300 MG (CAPSULE - ORAL) One Am And 2 At PmAlbuterol Sulfate Hfa 2 Puffs Four Times A DayBreztri DailyTylenol Extra Strength 500 MG TABLET 2 Tablets Three Times A DayLeflunomide 20MG QdGlucosamine Chondrotin Sulfate 1500 MG Once DailyOlumiant 2 MG TABLET, FILM COATED Once DailyVitamin D WeeklyTurmeric DailyGinger DailyProtonix 40 MG TABLET, DELAYED RELEASE Once Daily Adverse Drug Reactions ReviewedNaprosyn EdemaLisinopril Abdominal PainMetformin Diarrhea Vaccination and ImmunizationImmunizations and Vaccinations Discussed and Implemented if feasible In the Office. Else referred to pharmacies. ( ) 2024-10 TDAP(X) 2021-05 COVID MODERNA( ) 2023-08 SHINGRIX( ) 2024-10 PREVNAR 20 Surgical [id number] Cervical laminectomy bone [id number] Cervical laminectomy bone [id number] Vaginal Acriduuppzpt0680-96 Bladder [id number] Lap [id number] Lt. Foot [id number] Tubal Ligation Preventative TestingPreventative Testing Discussed and Scheduled if Acceptable to Patient ( ) 11/14/2024 Albumin 4.2 G/DL( ) 11/14/2024 HAIC 6.0 % H( ) 08/16/2024 Mammogram 08/16/2026( ) 06/03/2024 LDCT 06/03/2025( ) 06/16/2022 Colonoscopy ( 5 Years ) 06/16/2027(X) 03/27/2020 DEXA Scan 03/27/2022 Social HistorySmokes one pack daily for over 25 yearsDrinks sociallyWorks with mentally handicappedFamily HistoryMother 76 from [place] breast and Type II DiabetesFather 68 from arteriosclerotic heart disease, essential hypertension and CVAOne brother living and in good health.Menarche 16 Menopause A0 Active Medication ListXanax 0.25 MG (TABLET - ORAL) One Tid Prn For AnxietyAspirin 81 MG Once DailyPotassium Chloride 10 MEQ (TABLET, EXTENDED RELEASE - ORAL) DailyZocor 20 MG (TABLET - ORAL) Once DailyOmega-3 1400 MG DailyEffexor Xr 150 MG (CAPSULE, EXTENDED RELEASE - ORAL) One DailyLasix 20 MG (TABLET - ORAL) Two DailyLosartan Potassium 100 MG TABLET Once DailyNeurontin 300 MG (CAPSULE - ORAL) One Am And 2 At PmAlbuterol Sulfate Hfa 2 Puffs Four Times A DayBreztri DailyTylenol Extra Strength 500 MG TABLET 2 Tablets Three Times A DayLeflunomide 20MG QdGlucosamine Chondrotin Sulfate 1500 MG Once DailyOlumiant 2 MG TABLET, FILM COATED Once DailyVitamin D WeeklyTurmeric DailyGinger DailyProtonix 40 MG TABLET, DELAYED RELEASE Once Daily Adverse Drug Reactions ReviewedNaprosyn EdemaLisinopril Abdominal PainMetformin Diarrhea Vaccination and ImmunizationImmunizations and Vaccinations Discussed and Implemented if feasible In the Office. Else referred to pharmacies. ( ) 2024-10 TDAP(X) 2021-05 COVID MODERNA( ) 2023-08 SHINGRIX( ) 2024-10 PREVNAR 20 Surgical [id number] Cervical laminectomy bone [id number] Cervical laminectomy bone [id number] Vaginal Ucpfjkpkbpma1695-69 Bladder [id number] Lap Erzyasoofmhzohs2088-11 Lt. Foot [id number] Tubal Ligation Preventative TestingPreventative Testing Discussed and Scheduled if Acceptable to Patient ( ) 11/14/2024 Albumin 4.2 G/DL( ) 11/14/2024 HAIC 6.0 % H( ) 08/16/2024 Mammogram 08/16/2026( ) 06/03/2024 LDCT 06/03/2025( ) 06/16/2022 Colonoscopy ( 5 Years ) 06/16/2027(X) 03/27/2020 DEXA Scan 03/27/2022 Social HistorySmokes one pack daily for over 25 yearsDrinks sociallyWorks with mentally handicappedFamily HistoryMother 76 from [place] breast and Type II DiabetesFather 68 from arteriosclerotic heart disease, essential hypertension and CVAOne brother living and in good health.Menarche 16 Menopause A0 Mason Paul MD [address] [address], [place], [address], [facility] [employer] [facility] 03/07/2025 15:13:18 OBGyn Episode No OBEpisode recorded."
--- OUTSIDE RECORDS SUMMARY | 2025-03-29 17:59 | XMS_ITS | CONTINUITY OF CARE DOCUMENT ---
Author Name lamar, lamar Address Unknown Organization [facility] Address [address] [place] [address] Phone [phone] Care Team Providers Care Mechanical Lead Name Role Phone Saurabh MARTINO, Fahad Unavailable [phone] ANKITA MARTINO, MASON Unavailable [phone] MASON LUCIANO MD Unavailable PROBLEMS Condition Status Date Provider Notes Other symptoms involving cardiovascular system completed - Fahad Wiley MD Family History of Hypertension: completed - Fahad Wiley MD Edema completed - Fahad Wiley MD Palpitations active Fahad Wiley MD Chest pain- nml stress 09/2018 active Fahad Wiley MD Anxiety disorder generalized active Katy Wiley MD Hyperlipidemia, unspecified active Shira Anitra Herediaoremarguerite Tobacco abuse active Fahad Wiley MD Hypertension active Fahad Wiley MD Rheumatoid arthritis active Fahad Wiley MD Obesity active Fahad Wiley MD Shortness of breath active Fahad Ambriz RICKIE - severe, on CPAP active Serafin Solorio Venous insufficiency active Fahad Wiley MD PVD, absent pedal pulses completed - Fahad Wiley MD Peripheral neuropathy active Fahad Wiley MD Leg edema active Isidro Becker MD Cardiology examination active 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 Date Type Provider Location Encounter Diag nosis - In-person encounter Office Visit Fahad Wiley MD [facility] Cardiology examination - In-person encounter Office Visit Fahad Wiley MD [facility] - In-person encounter Office Visit Isidro Becker MD [facility] Leg edema - In-person encounter Office Visit Isidro Becker MD [facility] - In-person encounter Office Visit Isidro Becker MD [facility] - In-person encounter Office Visit Isidro Becker MD [facility] - In-person encounter Office Visit Fahad Wiley MD [facility] - In-person encounter Office Visit Fahad Wiley MD [facility] - In-person encounter Office Visit Fahad Wiley MD [facility] - In-person encounter Office Visit Fahad Wiley MD [facility] - In-person encounter Office Visit Fahad Wiley MD [facility] - In-person encounter Office Visit Fahad Wiley MD [facility] - In-person encounter Office Visit Fahad Wiley MD [facility] - In-person encounter Office Visit Fahad Wiley MD [facility] - In-person encounter Office Visit Fahad Wiley MD [facility] PVD, absent pedal pulsesPeripheral neuropathy - In-person encounter Office Visit Fahad Wiley MD [facility] - In-person encounter Office Visit Fahad Wiley MD [facility] - In-person encounter Office Visit Fahad Wiley MD [facility] EdemaOSA - severe, on CPAPVenous insufficiency - In-person encounter Office Visit Fahad Wiley MD [facility] - In-person encounter Office Visit Fahad Wiley MD [facility] Chest pain- nml stress 09/2018Shortness of breathOSA - severe, on CPAP - In-person encounter Office Visit Fahad Wiley MD [facility] Obesity - In-person encounter Office Visit Fahad Wiley MD [facility] Other symptoms involving cardiovascular systemFamily History of Hypertension:Tobacco abuseHypertensionRheumatoid arthritis - In-person encounter Office Visit Fahad Wiley MD [facility] Other symptoms involving cardiovascular systemPalpitationsChest pain- nml stress 09/2018Anxiety disorder generalizedHyperlipidemia, unspecified VITAL SIGNS Date Observation Value Provider Body Mass Index (Ratio) 45.65 kg/m2 Sj Wiley MD blood pressure, diastolic 111 mm[Hg] Kerline Carballo blood pressure, systolic 191 mm[Hg] Melodie Carballo oxygen saturation, oximetry 95 % Yahaira Carballo pulse rate 84 /min Yahaira Carballo respiratory rate E&M 13 /min Yahaira Carballo weight E&M 266 [lb_av] Yahaira Carballo height E&M 64 [in_i] Yahaira Carballo blood pressure, cuff size regular An ann-marie Carballo Body Mass Index (Ratio) 44.97 kg/m2 Sj Wiley MD blood pressure, cuff size large Ke rri Juanitouenelorettaeldtim blood pressure, diastolic 80 mm[Hg] Ke rri Gruenenfelder blood pressure, systolic 156 mm[Hg] Ker ri Juanitotylerluis felipelorettamorena oxygen saturation, oximetry 96 % Meera Elsiefedericaer pulse rate 82 /min Meera Elsiee lder weight E&M 262 [lb_av] Meera Geovaninenfe er height E&M 64 [in_i] Meera Juanitouenenfe er Body Mass Index (Ratio) 41.71 kg/m2 Eddy Becker MD blood pressure, cuff size large Geeta doll Gama blood pressure, diastolic 74 mm[Hg] Geeta doll [place] blood pressure, systolic 146 mm[Hg] [facility] yunior Natan oxygen saturation, oximetry 96 % Sera Gama pulse rate 90 /min Sera ambriz weight E&M 243 [lb_av] Sera ambriz respiratory rate E&M 16 /min Dot Gama height E&M 64 [in_i] Sera ambriz Body Mass Index (Ratio) 41.71 kg/m2 Eddy Becker MD blood pressure, diastolic 94 mm[Hg] Higinio Hughes blood pressure, systolic 166 mm[Hg] She dulce Hughes blood pressure, cuff size regular nina Hughes oxygen saturation, oximetry 95 % Sharon Hughes respiratory rate E&M 18 /min Sharon Hughes pulse rate 80 /min Sharon Hughes weight E&M 243 [lb_av] Sharon Ellen height E&M 64 [in_i] Sharon Ellen Body Mass Index (Ratio) 41.98 kg/m2 Eddy Becker MD oxygen saturation, oximetry 95 % Alyson Semaj blood pressure, diastolic 86 mm[Hg] [facility] austinrich Cha blood pressure, systolic 147 mm[Hg] Saul martin Semaj pulse rate 87 /min Alyson Semaj respiratory rate E&M 18 /min Alyson Antoine boles weight E&M 244.6 [lb_av] Alysonveronica Cha height E&M 64 [in_i] Alyson Cha Body Mass Index (Ratio) 42.56 kg/m2 Naima Miranda Body Mass Index (Ratio) 42.56 kg/m2 Eddy Becker MD blood pressure, diastolic 86 mm[Hg] St ephanie Hina blood pressure, systolic 170 mm[Hg] Mikey Santamaria oxygen saturation, oximetry 94 % Lili Santamaria pulse rate 83 /min Lili everett respiratory rate E&M 16 /min Mike sudhakar Santamaria weight E&M 248 [lb_av] Lili everett height E&M 64 [in_i] Lili everett blood pressure, cuff size large St ephanie Hina blood pressure, diastolic -1 mm[Hg] Li nkLoggonsalo blood pressure, systolic 185 mm[Hg] Daphnie kLoggonsalo blood pressure, diastolic 97 mm[Hg] An terry Sanchez blood pressure, systolic 185 mm[Hg] Any chantel Sanchez weight E&M 248 [lb_av] Maddison Sanchez oxygen saturation, oximetry 93 % Maddison Sanchez pulse rate 93 /min Maddison Daniel blood pressure, cuff size large An terry Daniel height E&M 64 [in_i] Maddison Daniel Body Mass Index (Ratio) 42.56 kg/m2 Naima Guajardosalima blood pressure, cuff size large Higinio Hughes blood pressure, diastolic 79 mm[Hg] Higinio Hughes blood pressure, systolic 143 mm[Hg] She dulce Hughes weight E&M 248 [lb_av] Sharon Hughes oxygen saturation, oximetry 97 % Sharon Hughes pulse rate 83 /min Sharon Hughes respiratory rate E&M 20 /min Sharon Hughes height E&M 64 [in_i] Sharon Hughes Body Mass Index (Ratio) 42.22 kg/m2 Miguel Ángel Aranda blood pressure, diastolic 95 mm[Hg] Li nkLogic blood pressure, systolic 173 mm[Hg] Daphnie Banksoggonsalo blood pressure, diastolic 95 mm[Hg] St kaiden Cha blood pressure, systolic 173 mm[Hg] Sta veronica Cha oxygen saturation, oximetry 96 % Alysonveronica Cha pulse rate 82 /min Alysonveronica Cha respiratory rate E&M 16 /min Alyson boles weight E&M 246 [lb_av] Alyson Semaj height E&M 64 [in_i] Alysonveronica Cha Body Mass Index (Ratio) 42.74 kg/m2 Sj Wiley MD blood pressure, cuff size large Geeta sharmila Gama blood pressure, diastolic 60 mm[Hg] Mi sharmila [place] blood pressure, systolic 122 mm[Hg] [facility] yunior Gama oxygen saturation, oximetry 96 % Sera Gama respiratory rate E&M 16 /min Dot Gama pulse rate 86 /min Sera Aman ambriz weight E&M 249 [lb_av] Sera Aman ambriz height E&M 64 [in_i] Sera Aman ambriz Body Mass Index (Ratio) 43.59 kg/m2 Sj Wiley MD blood pressure, diastolic 85 mm[Hg] Sarina Soliz blood pressure, diastolic -1 mm[Hg] Deepa rylandLoggonsalo blood pressure, systolic 155 mm[Hg] Daphnie Banksog blood pressure, systolic 155 mm[Hg] Harvey Soliz oxygen saturation, oximetry 93 % Cande Soliz respiratory rate E&M 16 /min Cordell Soliz pulse rate 78 /min Cande nguyễn weight E&M 254 [lb_av] Cande nguyễn blood pressure, cuff size regular Sarina Soliz height E&M 64 [in_i] Cande nguyễn Body Mass Index (Ratio) 43.59 kg/m2 Sj Wiley MD blood pressure, diastolic 86 mm[Hg] Deepa marcelinoLoggonsalo blood pressure, systolic 154 mm[Hg] Daphnie Banksoggonsalo blood pressure, diastolic 86 mm[Hg] Sa ra Cerda blood pressure, systolic 154 mm[Hg] Tameka a Cerda pulse rate 93 /min Josiane Cerda respiratory rate E&M 17 /min Josiane Si ms oxygen saturation, oximetry 98 % Josiane Cerda blood pressure, cuff size large Sa ra Cerda weight E&M 254 [lb_av] Josiane Cerda height E&M 64 [in_i] Josiane Cerda height E&M 64 [in_i] Fahad Wiley MD Body Mass Index (Ratio) 42.39 kg/m2 Sj Wiley MD blood pressure, cuff size regular Cy ntjosie Latif blood pressure, diastolic 88 mm[Hg] Cy ntmickeya Latif blood pressure, systolic 155 mm[Hg] Sanna mary Latif oxygen saturation, oximetry 97 % Vanessa Latif respiratory rate E&M 16 /min Vanessa Latif pulse rate 85 /min Vanessa Campbel l weight E&M 247 [lb_av] Vanessa Campbel l height E&M 64 [in_i] Vanessa Campbel l Body Mass Index (Ratio) 42.39 kg/m2 Dennys n Lyndsey blood pressure, diastolic 88 mm[Hg] Cy ntmickeya Latif blood pressure, systolic 164 mm[Hg] Sanna leylaa Latif pulse rate 90 /min Vanessa Campbel l oxygen saturation, oximetry 95 % Vanessamary Latif respiratory rate E&M 16 /min Vanessa Latif weight E&M 247 [lb_av] Vanessa Campbel l blood pressure, cuff size regular Cy ntjosie Latif height E&M 64 [in_i] Vanessa Campbel l temperature E&M 97.5 [degF] Jennifer Tankcathie jay Body Mass Index (Ratio) 42.05 kg/m2 Dennys n Lyndsey blood pressure, cuff size regular Rh onda Laura blood pressure, diastolic 85 mm[Hg] Rh onda Laura blood pressure, systolic 140 mm[Hg] Rho nda Laura oxygen saturation, oximetry 97 % Nikki Laura respiratory rate E&M 16 /min Nikki Laura pulse rate 98 /min Nikki Laura weight E&M 245 [lb_av] Nikki Laura height E&M 64 [in_i] Nikki Sanchez Body Mass Index (Ratio) 40.68 kg/m2 Dennys n Lyndsey blood pressure, diastolic 84 mm[Hg] To dianaha Milton blood pressure, systolic 131 mm[Hg] Ton sarah Milton respiratory rate E&M 16 /min [facility] oxygen saturation, oximetry 94 % [facility] pulse rate 96 /min [facility] weight E&M 237 [lb_av] [facility] height E&M 64 [in_i] [facility] Body Mass Index (Ratio) 40.68 kg/m2 Dennys marguerite [facility] pulse rate 90 /min [facility] blood pressure, diastolic 74 mm[Hg] [facility], systolic 136 mm[Hg] [facility] oxygen saturation, oximetry 95 % [facility] weight E&M 237 [lb_av] [facility] respiratory rate E&M 16 /min [facility] blood pressure, resting Yes [facility] height E&M 64 [in_i] [facility] Body Mass Index (Ratio) 39.99 kg/m2 Sj Wiley MD blood pressure, diastolic 92 mm[Hg] Ch astlashell Lowe blood pressure, systolic 142 mm[Hg] Ale stity Chrissy oxygen saturation, oximetry 96 % Chastity Chrissy pulse rate 84 /min Chastity Chrissy respiratory rate E&M 16 /min Chastit y Chrissy weight E&M 233 [lb_av] Chastity Chrissy height E&M 64 [in_i] Chastity Chrissy Body Mass Index (Ratio) 40.85 kg/m2 Sj Wiley MD respiratory rate E&M 16 /min Vanessa aLtif oxygen saturation, oximetry 97 % Vanessa Latif pulse rate 81 /min Vanessa longoria blood pressure, cuff size regular Cy simone Latif blood pressure, diastolic 60 mm[Hg] Cy simone Latif blood pressure, systolic 140 mm[Hg] Sanna Latif weight E&M 238 [lb_av] Vanessa Interiano l height E&M 64 [in_i] Vanessa Interiano l Body Mass Index (Ratio) 40.85 kg/m2 Sj Wiley MD blood pressure, diastolic 70 mm[Hg] [facility] blood pressure, systolic 130 mm[Hg] Malick erica [place] oxygen saturation, oximetry 96 % [facility] respiratory rate E&M 16 /min [facility] pulse rate 84 /min [facility] E&M 238 [lb_av] [facility] height E&M 64 [in_i] [facility] Body Mass Index (Ratio) 40.33 kg/m2 Sj Wiley MD blood pressure, diastolic 90 mm[Hg] Da hakan Tiffanie blood pressure, systolic 146 mm[Hg] Dac ia Tiffanie oxygen saturation, oximetry 95 % Brittnee Tiffanie respiratory rate E&M 16 /min Brittnee V oss pulse rate 92 /min Brittnee Tiffanie weight E&M 235 [lb_av] Brittnee Tiffanie height E&M 64 [in_i] Brittnee Tiffanie Body Mass Index (Ratio) 39.13 kg/m2 Sj Wiley MD blood pressure, diastolic 90 mm[Hg] [facility] blood pressure, systolic 140 mm[Hg] Malick maldonado Sherman oxygen saturation, oximetry 93 % Sara Sherman respiratory rate E&M 16 /min [facility] pulse rate 82 /min Sara Sherman weight E&M 228 [lb_av] Sara Sherman height E&M 64 [in_i] [facility] Body Mass Index (Ratio) 36.90 kg/m2 Anea facundo [facility] blood pressure, diastolic, left arm 99 mm [Hg] Aneatris [facility] blood pressure, systolic, left arm 175 mm [Hg] [facility] blood pressure, diastolic, right arm 107 mm[Hg] [facility] blood pressure, systolic, right arm 168 m m[Hg] [facility], diastolic 107 mm[Hg] An eatris [facility] blood pressure, systolic 168 mm[Hg] Ane atris [facility] pulse rate 97 /min [facility] oxygen saturation, oximetry 98 % Aneatris [facility] respiratory rate E&M 18 /min Aneatri s [facility] weight E&M 215 [lb_av] [facility] height E&M 64 [in_i] [facility] ALLERGIES Allergy Name Onset Date Reaction Criticality Status LISINOPRIL pt can't remember High Criticality a ctive PRAVACHOL drowsiness drowsiness High Criticali ty active HISTORY OF MEDICATION USE Medication Status Instructions Dates Provider Indications Com ments rosuvastatin 20 mg tablet active Elizabeth Ventimiglia 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 HELPER losartan 50 mg tablet active Take 1 tablet by mouth once a day DOSE INCREASED TO 50MG 02/14 Meera Rich furosemide 40 mg tablet active TAKE 1 TABLET EVERY DAY 01/25 Elizabeth Ventimiglia WALLPAPER EMBOSSER HELPER ergocalciferol (vitamin D2) 1,250 mcg (50,000 unit) capsule active take 1 pill a week Meera Rich leflunomide 20 mg tablet active take 1 pill a day Meera Solomonmaurolorettafedericatim venlafaxine 150 mg capsule,extended release 24hr active take 1 pill a day Meera Rich Olumiant 2 mg tablet active take 1 pill at bedtime Meera Rich losartan 50 mg tablet completed Take 1 tablet by mouth once a day 03/24 - 02/14 Meera Monroelorettamorena amiloride 5 mg tablet completed TAKE 1/2 TABLET BY MOUTH EVERY DAY 11/27 - 01/25 Meera Rich losartan 25 mg tablet completed Take 1 tablet by mouth once a day 11/11 - 03/24 Anna Peacock losartan 25 mg tablet completed TAKE 1 TABLET BY MOUTH ONCE DAILY 07/13 - 11/11 Meera Solomoncesiatim potassium chloride 10 mEq tablet,ER particles/crystals active TAKE 2 TABLETS BY MOUTH DAILY 07/13 Anna Peacock pantoprazole 40 mg tablet,delayed release (DR/EC) active TAKE 1 TABLET BY MOUTH EVERY DAY Sera Gama amiloride 5 mg tablet completed Take 1/2 tablet by mouth once a day 03/06 - 11/27 Alexis Tobar losartan 100 mg tablet completed Take 1 tablet by mouth once a day TAKE 1 TABLET BY MOUTH DAILY 12/24 - 07/13 Sharon Hughes losartan 100 mg tablet completed TAKE 1 TABLET DAILY (DOSE INCREASED 01/09/21) 10/21 - 12/24 Elizabeth Ventimiglia WALLP[employer]ER EMBOSSER HELPER furosemide 40 mg tablet completed Take 1 tablet by mouth once daily - 01/25 Elizabeth Ventimiglia WALLP[employer]ER EMBOSSER HELPER potassium chloride 10 mEq tablet,ER particles/crystals completed [...] by mouth once a day 06/06 - Sera Gama gabapentin 300 mg capsule active Take 1 capsule three times a day 02/21 Vanessa Latif Plaquenil 200 mg tablet completed 2 tablet twice a day 02/21 - 01/25 Meera Rich DICLOFENAC SODIUM 75 MG ORAL TABLET DELAYED RELEASE completed take 1 tab twice a day as needed 02/21 - 06/06 Vanessa Latif VICODIN ES 7.5-300 MG ORAL TABLET completed 1 tab at night 11/16 - 02/21 Vanessa Latif [facility] NICOTINE 14 MG/24HR TRANSDERMAL PATCH 24 HOUR completed apply one patch daily - 11/16 Fahad Wiley MD Acidophilus tablet,chewable completed 1 tablet once a day 02/23 - 01/25 Meera Rich GINSENG 100 MG ORAL CAPSULE completed one tab once daily 02/23 - 11/16 Fahad Wiley MD potassium chloride 10 mEq tablet,ER particles/crystals completed Take 1 tablet once a day 04/26 - 05/19 Aide Gann HYDROCHLOROTHIAZIDE TABS 12.5MG completed TAKE 1 TABLET DAILY 01/28 - 06/06 Fahad Wiley MD D3-50 10323 UNIT ORAL CAPSULE completed take 1 caps [...] Sara Sherman Nitrostat 0.4 mg tablet, sublingual completed Apply 1 tablet under tongue as needed 11/08 - 01/25 Meera Rich aspirin 81 mg tablet,delayed release (/EC) active 1 tablet once a day 11/08 Aide Gann simvastatin 20 mg tablet completed 1 tablet once a day 11/08 - 03/29 Elizabeth HALEY Colace 100 mg capsule completed 1 capsule twice a day 11/08 - 01/25 Meera Rich MULTIVITAMIN ADULTS 50+ ORAL TABLET completed 1 tab daily 11/08 - 11/16 Fahad Wiley MD [place]-3 Fish Oil 300-1,000 mg capsule completed 1 capsule once a day 11/08 - 01/25 Meera Rich B-12 1000 MCG ORAL CAPSULE completed 1 caps daily 11/08 - 11/16 Fahad Wiley MD venlafaxine 75 mg tablet completed 1 tablet once a day 11/08 - 01/25 Meera Rich amlodipine 5 mg tablet completed 1/2 tablet once a day 11/08 - 01/25 Meera Rich FOLIC ACID 1 MG ORAL TABLET completed 1 tab watt 11/08 - 11/16 Fahad Wiley MD METHOTREXATE 2.5 MG ORAL TABLET completed 4 tabs on 11/08 - 01/27 Sara Sherman PREDNISONE 5 MG ORAL TABLET completed 1 [...] MD SOCIAL HISTORY Date Observation Value Provider personal history of marijuana use no [facility] drug [facility] alcohol use no Elizabeth Ventimig [facility] smoking/tobacco cess ation, patient education and counseling yes [facility] number of years as a smoker 45 a [facility] smoking, date started 1972 [facility] smoking history, tot al pack/year 47 [facility] smoking history, tot al pack/day 1 pkg daily [facility] cigarette use yes [facility] smoking status Current every da y smoker [facility] personal history of marijuana use no [facility] drug use no Elizabeth Ventimig luci [facility] alcohol use no Elizabeth Ventimig [facility] smoking/tobacco cess ation, patient education and counseling yes [facility] number of years as a smoker 47 a Elizabeth Ventimiglia [facility] smoking, date started 1972 [facility] smoking history, tot al pack/year 47 Elizabeth Ventimiglia [facility] smoking history, tot al pack/day 1 pkg daily Elizabeth [facility] cigarette use yes Elizabeth velez [facility] smoking status Current every da y smoker Elizabeth Hortonespinozamichelet [facility] social history reviewed E&M revi ewed - [...] Sera Gama cigarette use yes Sera Martinez nd smoking status Current every da y smoker Sera Gama alcohol use no Isidro Becker MD Exercise [...] required Isidro Becker MD Exercise counseling yes Alysonveronica Wick smoking/tobacco cess ation, patient education and [...] social history E&M S moking History: P naeem currently smokes every day. P naeem has been counseled to quit. Fahad Wiley MD social history reviewed E&M revi ewed - no changes required Fahad Wiley MD drug use no Elizabeth Ventimig luci [facility] alcohol use no Elizabeth Ventimig luci [facility] Exercise counseling yes Maddison brush smoking/tobacco cess ation, patient education and counseling yes Maddison Sanchez number of years as a smoker 47 a Maddison Sanchez smoking, date started 1972 Maddisonchantel abdi smoking history, tot al pack/year 47 Maddison Sanchez smoking history, tot al pack/day 1 pkg daily Maddisonchantel Sanchez cigarette use yes Maddisonchantel Sanchez smoking status Current every da y smoker Maddison Sanchez drug use no Elizabeth Ventimig luci [employer] alcohol use no Elizabeth Ventimig luci [employer] HEL[employer] smoking history, tot al pack/day 1 pkg daily Sharon Hughes cigarette use yes Sharon Hughes smoking status Current every da y smoker Sharon Hughes social history E&M S moking History: P atient currently smokes every day. P atient has been counseled to quit. Fahad Wiley MD social history reviewed E&M revi ewed - no changes required Fahad Wiley MD Exercise counseling yes Alyson Wick smoking/tobacco cess ation, patient education and counseling yes Alyson Semaj number of years as a smoker 47 a Alyson Cha smoking, date started 1972 Alyson Semaj smoking history, tot al pack/year 47 Alyson Semaj smoking history, tot al pack/day 1 Alyson Semaj cigarette use yes Alyson Semaj smoking status Current every da y smoker [...] smoking history, tot al pack/day 1 Sera Gama cigarette use yes Sera Martinez gonzalo smoking status Current every da y smoker Sera Natan social history reviewed E&M revi ewed - [...] ation, patient education and counseling yes Vanessa Salomon number of years as a smoker 47 a Vanessa Latif smoking, date started 1972 Adrian golden Salomon smoking history, tot al pack/year 47 Vanessa Latif smoking history, tot al pack/day 1 Vanessa Latif cigarette use yes Vanessa Pichardotito gongora smoking status Current every da y smoker Vanessa Latif social history E&M S moking History: P atient currently smokes every day. P atient has been counseled to quit. Fahad Wiley MD social history reviewed E&M revi ewed - no changes required Fahad Wiley MD smoking/tobacco cess ation, patient education and counseling yes Vanessa Salomon number of years as a smoker 47 a Vanessa Latif smoking, date started 1972 Adrian golden Latif smoking history, tot al pack/year 47 Vanessa Latif smoking history, tot al pack/day 1 Vanessa Salomon cigarette use yes Vanessa Kings gongora smoking status Current every da y smoker Vanessa Salomon social history E&M S moking History: P [...] cess ation, patient education and counseling yes [facility] number of years as a smoker 47 a [facility] smoking, date started 1972 [facility] smoking history, tot al pack/year 47 [facility] smoking history, tot al pack/day 1 [facility] cigarette use yes [facility] smoking status Current every da y smoker [facility] social history E&M S moking History: P atient currently smokes every day. P atient has been counseled to quit. Fahad Wiley MD social history reviewed E&M revi ewed - no changes required Fahda Wiley MD smoking/tobacco cess ation, patient education and counseling yes [facility] number of years as a smoker 47 a Suni Nova smoking, date started 1972 [facility] smoking history, tot al pack/year 47 Suni Block smoking history, tot al pack/day 1 Suni Block cigarette use yes [facility] smoking status Current every da y smoker [facility] social history E&M S moking History: P atient currently smokes every day. P atient has been counseled to quit. Fahad Wiley MD social history reviewed E&M revi ewed - no changes required Fahad Wiley MD smoking/tobacco cess ation, patient education and counseling yes Juliette Lowe number of years as a smoker 45 a Juliette Lowe smoking, date started 1972 Chavo Lowe smoking history, tot al pack/year 45 Juliette Lowe smoking history, tot al pack/day 1 Juliette Lowe cigarette use yes Juliette Lowe smoking status Current every da y smoker Juliette Lowe social history E&M S moking History: P [...] ation, patient education and counseling yes Sara Sherman number of years as a smoker 45 a Sara Sherman smoking, date started 1972 Killee n Sherman smoking history, tot al pack/year 45 Sara Sherman smoking history, tot al pack/day 1 Sara Sherman cigarette use yes [place] Sherman smoking status Current every da y smoker Sara Weaveram social history E&M S moking History: P naeem currently smokes every day. P atemmanuel has been counseled to quit. Fahad Wiley MD social history reviewed E&M revi ewed - no changes required Fahad Wiley MD smoking/tobacco cess ation, patient education and counseling yes Brittnee Nietoss number of years as a smoker 45 a Brittnee Tiffanie smoking, date started 1972 Brittnee Tiffanie smoking history, tot al pack/year 45 Brittnee Tiffanie smoking history, tot al pack/day 1 Brittnee Macon cigarette use yes Brittnee Macon smoking status Current every da y smoker Brittnee Macon number of years as a smoker 45 a Fahad Wiley MD social history reviewed E&M revi ewed - no changes required Fahad Wiley MD social history E&M Smoking Histo ry: P naeem currently smokes every day. P atemmanuel has been counseled to quit. Fahad Wiley MD number of grandchildren Fahad Wiley MD [facility] smoking/tobacco cess ation, patient education and counseling yes Sara [place] smoking, date started 1972 Cari everett [place] smoking history, tot al pack/year 45 [facility] smoking history, tot al pack/day 1 [facility] cigarette use yes [facility] smoking status Current every da y smoker Sara [place] smoking history, tot al pack/year 45 Shira Fowlermarguerite smoking/tobacco cess ation, patient education and counseling yes Fahad Wiley MD social history reviewed E&M revi ewed - no changes required Fahad Wiley MD smoking, date started 1973 Imani Marroquin smoking history, tot al pack/day 1 Carlito Marroquin cigarette use yes Carlito Marroquin smoking status Current every da y smoker Carlito Marroquin FAMILY HISTORY Family Member Condition Father Family History of Hy pertension: Mother Family History Brelillian [place] Cancer: INSURANCE PROVIDERS Payer name Policy type / Coverage type [place] [employer] [facility] ADVANTAGE PLAN 2 (HMO-POS) Medicare [id number] ADVANCE DIRECTIVES Name Date DISCUSSED - NO DECISION MADE TREATMENT PLAN Date Name Performer [id number],S, Isidro Becker MD [id number],C,T he Patient was reencouraged to stop smoking. Pt reports it to be same as before Isidro Becker MD [id number],C,H er left leg is worse than right and she is having pain in her left W ill plan for R heart cath and venogram with IVUS Isidro Becker MD [id number],C,T he patient is using CPAP on a regular basis. The patient has been benefiting from therapy and should continue use. Isidro Becker MD [id number],S, Isidro Becker MD [id number],S, B P today: 147/86 P rior BP: [...] tablet once a day Isidro Becker MD [id number],S,S he is s/p left GSV closure. She still has a bit of swelling and will try to add a diuretic. Isidro Becker MD [id number],S,S he had venous doppler done that showed: 1 . No evidence of a deep vein thrombosis of the lower extremities bilaterally. 2. Significant venous insufficiency of the great saphenous vein bilaterally. She has worn compression socks without relief and we will do her left GSV Isidro Becker MD [id number],S, Isidro Becker MD [id number],C,l ifestyle modification encouraged Fahad Wiley MD [id number],C, H er updated medication list for this problem includes: Simvastatin 20 Mg Tablet (Simvastatin) ..... 1 tablet once a day Fahad Wiley MD [id number],C,T he patient is using CPAP on a regular basis. The patient has been benefiting from therapy and should continue use. Fahad Wiley MD [id number],C,S he continues to have pain with minimal ambulation and significant swelling. She had venous doppler done that showed 1 . No evidence of a deep vein thrombosis of the lower extremities bilaterally. 2. Significant venous insufficiency of the great saphenous vein bilaterally. will have her see Dr. Becker for further intervention. Fahad Wiley MD [id number],C,B lood pressure 185/97 W ill increase losartan from 50 mg a day to 100 mg a day w ill plan RPM Fahad Wiley MD [id number],S, S ALYSSA ENCOURAGED TO STOP SMOKING; SMOKING CESSATION TECHNIQUES DISCUSSED. Suni Miranda [id number],C,l ifestyle modification encouraged. Elizabeth Burleson [facility] [id number],C,B lood pressure still not at goal. Will [...] 1 tablet once a day Elizabeth Burleson [facility] [id number],C,S he continues to have pain with minimal [...] and diuretic at this time. Elizabeth Burleson [facility] [id number],W, I n spite of being on 900mg of gabapentin, continues to be symptomatic with pain, numbness, and tingling. Follows Dr. Lino and he due to see her soon. Fahad Wiley MD [id number],S, [facility] Dr. Elder in [place]. Continues on Plaquenil. Fahad Wiley MD [id number],S, C ontinues on Simvastatin. Fahad Wiley MD [id number],S, N o recurrence. Fahad Wiley MD [id number],S, H as been utilizing compression stockings without much improvement in her leg pain or swelling. Discussed possibility of doing venogram and/or venaseal. As she is agreeable, we will check venous dopplers and then refer her for further workup. She may also benefit from amlodipine reduced to 5mg in case it is contributing to the swelling. Fahad Wiley MD [id number],S, T he patient is using CPAP on a regular basis. The patient has been benefiting from therapy and should continue use. Fahad Wiley MD [id number],S, H er effort-related SOB persists and she continues using albuterol inhaler as needed. Fahad Wiley MD [id number],S, S ALYSSA ENCOURAGED TO STOP SMOKING; SMOKING CESSATION TECHNIQUES DISCUSSED. Fahad Wiley MD [id number],W, B lood pressure is elevated today. Continues on amlodipine. Advised routine home monitoring at least 2-3 times a week. We aim for a BP of 140/80 or lower. Fahad Wiley MD [id number],S, N o recurrence. Fahad Wiley MD [id number],S,F ollows rheumatology. Continues on Plaquenil. Fahad Wiley MD [id number],C,T he patient is using CPAP on a regular basis. The patient has been benefiting from therapy and should continue use. Fahad Wiley MD [id number],S,O n Gabapentin follows neurology. Fahad Wiley MD [id number],B,N o recurrence. Fahad Wiley MD [id number],S,C ontinues on Simvastatin. Fahad Wiley MD [id number],B,B lood pressure control is satisfactory. Continues on amlodipine. Fahad Wiley MD [id number],S,H er SOB persists and she continues using albuterol inhaler as needed. Based on the results of her PFT showing moderately obstructed airways and asthma, she will benefit from pulmonary evaluation. Fahad Wiley MD [id number],S, F olneymars rheumatology. Continues on Plaquenil. Fahad Wiley MD [id number],C, S he continues to have SOB with exertion. Her 6 minute walk test and stress test were normal. PFT results are pending. If PFTs are normal, we will send her to a ehr trainer for further workup. For symptom relief until PFTs are finished, we will prescribe her an albuterol inhaler. Fahad Wiley MD [id number],S, T he patient is using CPAP on a regular basis. The patient has been benefiting from therapy and should continue use. Fahad Wiley MD [id number],S, H as been utilizing compression stockings. Last [...] of active hypodermic bleeding. Fahad Wiley MD [id number],S, O n Gabapentin follows neurology. Fahad iWley MD [id number],S, N o recurrence. Fahad Wiley MD [id number],S, S ALYSSA ENCOURAGED TO STOP SMOKING; SMOKING CESSATION TECHNIQUES DISCUSSED. Fahad Wiley MD [id number],S, C ontinues on Simvastatin. Fahad Wiley MD [id number],C, E levated BP at 155/85 today. Continues on Amlodipine. Advised reduced sodium intake and routine monitoring of the blood pressure. We aim for less than 130/80. Fahad Wiley MD [id number],C, N o recurrence. Fahad Wiley MD [id number],C, T he patient is using CPAP on a regular basis. The patient has been benefiting from therapy and should continue use. Fahad Wiley MD [id number],C, E levated BP at 154/86 today. Continues on Amlodipine. Fahad Wiley MD [id number],C, H as been utilizing compression stockings. Last [...] of active hypodermic bleeding. Fahad Wiley MD [id number],C,S he has had worsening SOB, where she has to take breaks to regain her breath when walking. Likely multifactoral related to obesity, deconditionig, and sleep apnea. Will schedule a PFT with a 6 minute walk test and a stress test. Fahad Wiley MD [id number],C,T he patient is using CPAP on a regular basis. The patient has been benefiting from therapy and should continue use. Fahad Wiley MD [id number],Ita,C ontinues on Simvastatin. Fahad Wiley MD [id number],CP rior BP: 155/88 (06/06/2020). Continues on Amlodipine. Advised routine monitoring of the BP daily. Fahad Wiley MD [id number],C,S welling improved on Lasix and with compression stockings which she continues. Fahad Wiley MD Cardiology:The patie nt is using CPAP on a regular basis. The patient has been benefiting from therapy and should continue use. Elizabeth Ventimiglia [facility] Cardiology:cessation encouraged Elizabeth Ventimiglia [facility] Cardiology:with bila teral LE edema. L>R c ompression encouraged Elizabeth Ventimiglia [facility] Cardiology: T he following medications were removed from the medication list: Simvastatin 20 Mg Tablet (Simvastatin) ..... 1 tablet once a day Her updated medication list for this problem includes: Rosuvastatin 20 Mg Tablet (Rosuvastatin) [facility] Cardiology:BP uncont rolled in office on recheck 200/110 s he has associated headaches, visual changes and chest pain. W ill be sent to ER for further management of BP H er updated medication list for this problem includes: Losartan 50 Mg Tablet (Losartan) ..... Take 1 tablet by mouth once a day dose increased to 50mg Furosemide 40 Mg Tablet (Furosemide) ..... Take 1 tablet every day Aspirin 81 Mg Tablet,delayed Release (dr/ec) (Aspirin) ..... 1 tablet once a day [facility] Cardiology:weight loss encourage d [facility] Cardiology:chronic m ost likely multifactorial in setting of COPD and diastolic dysfunction w ill get her echo from [facility] W ill check pBNP c onsider SGLT-2 T he following medications were removed from the medication list: Furosemide 40 Mg Tablet (Furosemide) ..... Take 1 tablet by mouth once daily Amlodipine 5 Mg Tablet (Amlodipine) ..... 1/2 tablet once a day Amiloride 5 Mg Tablet (Amiloride) ..... Take 1/2 tablet by mouth every day Her updated medication list for this problem includes: Losartan 50 Mg Tablet (Losartan) ..... Take 1 tablet by mouth once a day Furosemide 40 Mg Tablet (Furosemide) ..... Take 1 tablet every day Aspirin 81 Mg Tablet,delayed Release (dr/ec) (Aspirin) ..... 1 tablet once a day [facility] Cardiology:The patie nt is using CPAP on a regular basis. The patient has been benefiting from therapy and should continue use. [facility] Cardiology: H er updated medication list for this problem includes: Simvastatin 20 Mg Tablet (Simvastatin) ..... 1 tablet once a day [facility] Cardiology:BP above goal will increase losartan dose to 50 mg daily T he following medications were removed from the medication list: Furosemide 40 Mg Tablet (Furosemide) ..... Take 1 tablet by mouth once daily Amlodipine 5 Mg Tablet (Amlodipine) ..... 1/2 tablet once a day Amiloride 5 Mg Tablet (Amiloride) ..... Take 1/2 tablet by mouth every day Her updated medication list for this problem includes: Losartan 50 Mg Tablet (Losartan) ..... Take 1 tablet by mouth once a day Furosemide 40 Mg Tablet (Furosemide) ..... Take 1 tablet every day Aspirin 81 Mg Tablet,delayed Release (dr/ec) (Aspirin) ..... 1 tablet once a day Elizabeth Burleson [facility] Cardiology:Patient h as persistent bilateral LE edema. Known venous insufficiency. Does not tolerate compression stockings H er weight is up since last visit will resume lasix. Will get echo for Viraj. check pBNP Elizabeth Burleson [facility] Cardiology Isidro Becker MD Cardiology:The Sylviee nt was reencouraged to stop smoking. Pt reports it to be same as before Isidro Becker MD Cardiology:Her left leg is worse than right and she is having pain in her left W ill plan for R heart cath and venogram with IVUS Isidro Becker MD Cardiology:The patie nt is using CPAP [...] (Aspirin) ..... 1 tablet once a day sIidro Becker MD Cardiology:She is s/ p left [...] Dr. Becker for further intervention. Elizabeth Burleson [facility] Cardiology:Blood pre ssure 185/97 W ill increase losartan from 50 mg a day to 100 mg a day w ill plan RPM Fahad Wiley MD Cardiology: S ALYSSA ENCOURAGED TO STOP SMOKING; SMOKING CESSATION TECHNIQUES DISCUSSED. Suni Miranda Cardiology:lifestyle modificatio n encouraged. Elizabeth Burleson [facility] Cardiology:Blood pre ssure still not at [...] 1 tablet once a day Elizabeth Burleson [facility] Cardiology:She cristela nues to have pain [...] compression, elevation and diuretic at this time. Elizabethdebo Hortonagustin [facility] Cardiology: I n spite of being on 900mg of gabapentin, continues to be symptomatic with pain, numbness, and tingling. Follows Dr. Lino and he due to see her soon. Fahad Wiley MD Cardiology: [facility], Dr. Elder in [place]. Continues on Plaquenil. Fahad Wiley MD Cardiology: Ita gilman on Simvastatin. Fahad Wiley MD Cardiology: N [...] as needed. Fahad Wiley MD Cardiology: S ALYSSA ENCOURAGED [...] asthma, she will benefit from pulmonary evaluation. Fhaad Wiley MD Cardiology: F ollows rheumatology. Continues on Plaquenil. Fahad Wiley MD Cardiology: S he continues to have SOB with exertion. Her 6 minute walk test and stress test were normal. PFT results are pending. If PFTs are normal, we will send her to a ehr trainer for further workup. For symptom relief until [...] CESSATION TECHNIQUES DISCUSSED. Fahad Wiley MD Cardiology: C ontinues on Simvastatin. Fahad Wiley MD Cardiology: E [...] a stress test. Fahad Wiley MD Telehealth:The patie nt is using CPAP on a [...] Plaquenil. Serafin Solorio Telehealth:Continues on Simvasta tin. Serafin michelle Telehealth:The randy nt is using CPAP on a regular basis. The patient has been benefiting from therapy and should continue use. Serafin Solorio Telehealth:Continues on Losartan 25mg and Amlodipine 10mg daily. Advised reduced sodium intake and routine monitoring of the blood pressure. We aim for blood pressure less than 130/80. Serafin michelle Telehealth:No recurrence. Serafin michelle Telehealth:Swelling improved on Lasix and with compression [...] benefiting from therapy and should continue use. Fhaad Wiley MD Cardiology follow up :Blood pressure consistently elevated. She reports she has had a reaction to Lisinopril in the past. Will start Losartan 25mg daily. She continues on the Amlodipine 10mg daily. Advised reduced sodium intake and routine monitoring of the blood pressure. We aim for less than 130/80. Fahad Wilye MD Cardiology follow up :Leg swelling persists. Advised to wear compression stockings daily. Will discontinue HCTZ and start Lasix 20mg daily. Will increase Potassium to 20meq daily. Fahad Wiley MD Cardiology follow up :No recurrence. She continues on Aspirin 81mg daily. Fahad Wiley MD Cardiology:Continues on Simvastatin. Cardiology:Weight loss advised Yany rincon Cardiology:STRONGLY ENCOURAGED TO STOP SMOKING; SMOKING CESSATION [...] pressure remains elevated, will adjust antihypertensives. Cardiology: S ALYSSA ENCOURAGED TO STOP SMOKING; SMOKING CESSATION TECHNIQUES DISCUSSED. Cardiology: C ontinues on Simvastatin. Cardiology: W eight loss advised [...] Regadenoson 6 minute walk test DLCO - 25455 FRC - 07965 FVC - 77646 Venous Doppler Unila teral RLE Arterial Duplex [...] ed FVC / MVV with bronchodilator - 80812 Fahad Wiley MD completed FRC - 48424 Fahad Wiley MD comple faustina SpO2 w/o 6min walk/titration Fahad Wiley MD completed SVC - 62129 Fahad Wiley MD comple faustina DLCO - 21696 Fahad Wiley MD compl eted EKG Fahad Wiley MD complet ed EKG Fahad Wiley MD complet ed EKG Fahad Wiley MD complet ed EKG Fahad Wiley MD complet ed EKG Fahad Wiley MD complet ed EKG Fahad Wiley MD complet ed EKG Fahad Wiley MD complet ed EKG Fahad Wiley MD complet ed FVC / MVV with bronchodilator - 22419 Fahad Wiley MD completed BLOOD COUNT HEMOGLOBIN Fahad Wiley MD completed FRC - 81053 Fahad Wiley MD comple faustina SpO2 w/o 6min walk/titration Fahad Wiley MD completed DLCO - 41973 Fahad Wiley MD compl eted EKG Fahad Wiley MD complet ed EKG Fahad Wiley MD complet ed Regadenoson, 4 units Fahad Wiley MD completed Cardiolite, 2 units Fahad Wiley MD completed SPECT Images Mane Johns MD complet ed Stress EKG Mane Johns MD completed EKG Fahad Wiley MD complet ed EKG Fahad Wiley MD complet ed
--- OUTSIDE RECORDS SUMMARY | 2025-03-29 18:17 | XMS_ITS | CONTINUITY OF CARE DOCUMENT ---
Author Name lamar, lamar Address Unknown Organization [facility] Address [address] [facility] [address] [place] [address] Phone [phone] Care Team Providers Care Technician [employer] Name Role Phone Saurabh MARTINO, Fahad Unavailable ANKITA MARTINO, MASON Unavailable [phone] MASON LUCIANO MD Unavailable [phone] PROBLEMS Condition Status Date Provider Notes Other [...] Becker MD Cardiology examination active 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 INDIVIDUALIZED EDUCATION PLAN AIDE ENCOUNTERS Date Type Provider Location Encounter Diag nosis - In-person encounter Office Visit Fahad Wiley MD [facility] Cardiology examination - In-person encounter Office Visit Fahad Wiley MD [facility] - In-person encounter Office Visit Isidro Becker MD [facility] Leg edema - In-person encounter Office Visit Isidro Becker MD [facility] - In-person encounter Office Visit Isidro Becker MD [facility] - In-person encounter Office Visit Isidro Becker MD [facility] - In-person encounter Office Visit Fahad Wiley MD [facility] - In-person encounter Office Visit Fahad Wiley MD [facility] - In-person encounter Office Visit Fahad Wiley MD [facility] - In-person encounter Office Visit Fahad Wiley MD [facility] - In-person encounter Office Visit Fahad Wiley MD [facility] - In-person encounter Office Visit Fahad Wiley MD [facility] - In-person encounter Office Visit Fahad Wiley MD [facility] - In-person encounter Office Visit Fahad Wiley MD [facility] - In-person encounter Office Visit Fahad Wiley MD [facility] PVD, absent pedal pulsesPeripheral neuropathy - In-person encounter Office Visit Fahad Wiley MD [facility] - In-person encounter Office Visit Fahad Wiley MD [facility] - In-person encounter Office Visit Fahad Wiley MD [facility] EdemaOSA - severe, on CPAPVenous insufficiency - In-person encounter Office Visit Fahad Wiley MD [facility] - In-person encounter Office Visit Fahad Wiley MD [facility] Chest pain- nml stress 09/2018Shortness of breathOSA - severe, on CPAP - In-person encounter Office Visit Fahad Wiley MD [facility] Obesity - In-person encounter Office Visit Fahad Wiley MD [facility] Other symptoms involving cardiovascular systemFamily History of Hypertension:Tobacco abuseHypertensionRheumatoid arthritis - In-person encounter Office Visit Fahad Wiley MD [facility] Other symptoms involving cardiovascular systemPalpitationsChest pain- [...] felipelorettamorena oxygen saturation, oximetry 96 % Meera lEsiefedericaer pulse rate 82 /min Meera Elsiee lder weight E&M 262 [lb_av] Meera Geovaninenfe er height E&M 64 [in_i] Meera Juanitouenenfe er Body Mass Index (Ratio) 41.71 kg/m2 Eddy Becker MD blood pressure, cuff size large Geeta doll [place] blood pressure, diastolic 74 mm[Hg] Geeta doll [place] blood pressure, systolic 146 mm[Hg] [facility] yunior Natan oxygen saturation, oximetry 96 % [...] blood pressure, diastolic 60 mm[Hg] Mi sharmila [place] blood pressure, systolic 122 mm[Hg] [facility] yunior Gama oxygen saturation, oximetry 96 % Sera Gama respiratory rate E&M 16 /min Dot [place] pulse rate 86 /min Sera Aman ambriz weight E&M 249 [lb_av] Sera mAan ambriz height E&M 64 [in_i] Sera Aman [...] Sa ra Cerda weight E&M 254 [lb_av] Josinae Cerda height E&M 64 [in_i] Josiane Cerda [...] [place] l oxygen saturation, oximetry 95 % Vanessaamry Latif respiratory rate E&M 16 /min Vanessa [...] sarah Milton respiratory rate E&M 16 /min [facility] oxygen saturation, oximetry 94 % [facility] pulse rate 96 /min [facility] weight E&M 237 [lb_av] [facility] height E&M 64 [in_i] [facility] Body Mass Index (Ratio) 40.68 kg/m2 Dennys marguerite [facility] pulse rate 90 /min [facility] blood pressure, diastolic 74 mm[Hg] [facility], systolic 136 mm[Hg] [facility] oxygen saturation, oximetry 95 % [facility] weight E&M 237 [lb_av] [facility] respiratory rate E&M 16 /min [facility] blood pressure, resting Yes [facility] height E&M 64 [in_i] [facility] Body Mass Index (Ratio) 39.99 kg/m2 Sj [...] Wiley MD blood pressure, diastolic 70 mm[Hg] [facility] blood pressure, systolic 130 mm[Hg] Malick erica Jackman oxygen saturation, oximetry 96 % [facility] respiratory rate E&M 16 /min [facility] pulse rate 84 /min [facility] weight E&M 238 [lb_av] [facility] height E&M 64 [in_i] [facility] Body Mass Index (Ratio) 40.33 kg/m2 Sj [...] MD blood pressure, diastolic 90 mm[Hg] Ki [facility] blood pressure, systolic 140 mm[Hg] Malick maldonado [place] oxygen saturation, oximetry 93 % Sara Sherman respiratory rate E&M 16 /min [place] pulse rate 82 /min Sara Sherman weight E&M 228 [lb_av] Sara Sherman height E&M 64 [in_i] [facility] Body Mass Index (Ratio) 36.90 kg/m2 Anea facundo [facility] blood pressure, diastolic, left arm 99 mm [Hg] Aneatris [facility] blood pressure, systolic, left arm 175 mm [Hg] [facility] blood pressure, diastolic, right arm 107 mm[Hg] [facility] blood pressure, systolic, right arm 168 m m[Hg] [facility], diastolic 107 mm[Hg] An eatris [facility] blood pressure, systolic 168 mm[Hg] Ane atris [facility] pulse rate 97 /min [facility] oxygen saturation, oximetry 98 % Aneatris [facility] respiratory rate E&M 18 /min Aneatri s [facility] weight E&M 215 [lb_av] [facility] height E&M 64 [in_i] [facility] ALLERGIES Allergy Name Onset Date Reaction Criticality Status LISINOPRIL pt can't remember High Criticality a ctive PRAVACHOL drowsiness drowsiness High Criticali ty active HISTORY OF MEDICATION USE Medication Status Instructions Dates Provider Indications Com ments rosuvastatin 20 mg tablet active Elizabeth Ventimiglia INDIVIDUALIZED EDUCATION PLAN AIDE losartan 50 mg tablet active Take 1 tablet by mouth once a day DOSE INCREASED TO 50MG 02/14 Meera Rich furosemide 40 mg tablet active TAKE 1 TABLET EVERY DAY 01/25 Elizabeth Ventimiglia INDIVIDUALIZED EDUCATION PLAN AIDE ergocalciferol (vitamin D2) 1,250 mcg (50,000 unit) [...] INCREASED 01/09/21) 10/21 - 12/24 Elizabeth Ventimiglia INDIVIDUALIZED EDUCATION PLAN AIDE furosemide 40 mg tablet completed Take 1 tablet by mouth once daily - 01/25 Elizabeth Ventimiglia INDIVIDUALIZED EDUCATION PLAN AIDE potassium chloride 10 mEq tablet,ER particles/crystals completed [...] 01/28 - 06/06 Fahad Wiley MD [id number] UNIT ORAL CAPSULE completed take 1 caps [...] daily 11/08 - 11/16 Fahad Wiley MD [place]-3 Fish Oil 300-1,000 mg capsule completed 1 [...] Provider personal history of marijuana use no [facility] alcohol use no Elizabeth Ventimig [facility] smoking/tobacco cess ation, patient education and counseling yes [facility] number of years as a smoker 45 a [facility] smoking, date started 1972 [facility] smoking history, tot al pack/year 47 [facility] smoking history, tot al pack/day 1 pkg daily [facility] cigarette use yes [facility] smoking status Current every da y smoker [facility] personal history of marijuana use no [facility] drug use no Elizabeth Ventimig luci [facility] alcohol use no Elizabeth Ventimig [facility] smoking/tobacco cess ation, patient education and counseling yes [facility] number of years as a smoker 47 a Elizabeth Ventimiglia [facility] smoking, date started 1972 [facility] smoking history, tot al pack/year 47 Elizabeth Ventimiglia [facility] smoking history, tot al pack/day 1 pkg daily Elizabeth [facility] cigarette use yes Elizabeth velez [facility] smoking status Current every da y smoker Elizabeth Hortonespinozamichelet [facility] social history reviewed E&M revi ewed [...] MD drug use no Elizabeth Ventimig luci [facility] alcohol use no Elizabeth Ventimig luci [facility] Exercise counseling yes Maddison brush smoking/tobacco [...] Sanchez drug use no Elizabeth Ventimig luci IN[employer]IDUALIZED [employer]UCATION PLAN AIDE alcohol use no Elizabeth Ventimig luci INDIVIDUALIZED EDUCATION PLAN AIDE smoking history, tot al pack/day 1 pkg [...] cess ation, patient education and counseling yes [facility] number of years as a smoker 47 a [facility] smoking, date started 1972 [facility] smoking history, tot al pack/year 45 [facility] smoking history, tot al pack/day 1 [facility] cigarette use yes [facility] smoking status Current every da y smoker [facility] social history E&M S moking History: P atient currently smokes every day. P atient has been counseled to quit. Fahad Wiley MD social history reviewed E&M revi ewed - no changes required Fahad Wiley MD smoking/tobacco cess ation, patient education and counseling yes [facility] number of years as a smoker 47 a Suni Nova smoking, date started 1972 [employer] smoking history, tot al pack/year 47 Suni Block smoking history, tot al pack/day 1 Suni Block cigarette use yes [facility] smoking status Current every da y smoker [facility] social history E&M S moking History: P [...] pack/day 1 Sara Sherman cigarette use yes [place] [facility] smoking status Current every da y [...] smoking history, tot al pack/day 1 [facility] [place] cigarette use yes [facility] [place] smoking status Current every da y smoker [facility] [place] number of years as a smoker 47 a Fahad Wiley MD social history reviewed E&M revi ewed - no changes required Fahad Wiley MD social history E&M Smoking Histo ry: P naeem currently smokes every day. P atemmanuel has been counseled to quit. Fahad Wiley MD number of grandchildren Fahad Wiley MD [facility] smoking/tobacco cess ation, patient education and counseling yes Sara Jackman smoking, date started 1972 Cari everett Jackman smoking history, tot al pack/year 47 [facility] smoking history, tot al pack/day 1 [facility] cigarette use yes [facility] smoking status Current every da y smoker Sara Jackman smoking history, tot al pack/year 47 Shira [...] Policy type / Coverage type [place] red democrat ID [facility] ADVANTAGE PLAN 2 (HMO-POS) Medicare [id number] ADVANCE DIRECTIVES Name Date DISCUSSED - NO DECISION MADE TREATMENT PLAN Date Name Performer [id number],S, Isidro Becker MD [id number],C,T he Patient was reencouraged to stop smoking. Pt reports it to be same as before Isidro Becker MD [id number],C,H er left leg is worse than right and she is having pain in her left W ill plan for R heart cath and venogram with IVUS Isidro Becker MD [id number],C,T he patient is using CPAP on a regular basis. The patient has been benefiting from therapy and should continue use. Isidro Becker MD [id number],S, Isidro Becker MD [id number],S, B P today: 147/86 P rior BP: [...] tablet once a day Isidro Becker MD [id number],S,S he is s/p left GSV closure. She still has a bit of swelling and will try to add a diuretic. Isidro Becker MD [id number],S,S he had venous doppler done that showed: 1 . No evidence of a deep vein thrombosis of the lower extremities bilaterally. 2. Significant venous insufficiency of the great saphenous vein bilaterally. She has worn compression socks without relief and we will do her left GSV Isidro Becker MD [id number],S, Isidro Bceker MD [id number],C,l ifestyle modification encouraged Fahad Wiley MD [id number],C, H er updated medication list for this problem includes: Simvastatin 20 Mg Tablet (Simvastatin) ..... 1 tablet once a day Fahad Wiley MD [id number],C,T he patient is using CPAP on a regular basis. The patient has been benefiting from therapy and should continue use. Fahad Wiley MD [id number],C,S he continues to have pain with minimal ambulation and significant swelling. She had venous doppler done that showed 1 . No evidence of a deep vein thrombosis of the lower extremities bilaterally. 2. Significant venous insufficiency of the great saphenous vein bilaterally. will have her see Dr. Becker for further intervention. Fahad Wiley MD [id number],C,B lood pressure 185/97 W ill increase losartan from 50 mg a day to 100 mg a day w ill plan RPM Fahad Wiley MD [id number],S, S ALYSSA ENCOURAGED TO STOP SMOKING; SMOKING CESSATION TECHNIQUES DISCUSSED. Suni Miranda [id number],C,l ifestyle modification encouraged. Elizabeth Burleson [facility] [id number],C,B lood pressure still not at goal. Will [...] 1 tablet once a day Elizabeth Burleson [facility] [id number],C,S he continues to have pain with minimal [...] and diuretic at this time. Elizabeth Burleson [facility] [id number],W, I n spite of being on 900mg of gabapentin, continues to be symptomatic with pain, numbness, and tingling. Follows Dr. Lino and he due to see her soon. Fahad Wiley MD [id number],S, [facility], Dr. Elder in [place]. Continues on Plaquenil. Fahad Wiley MD [id number],S, C ontinues on Simvastatin. Fahad Wiley MD [id number],S, N o recurrence. Fahad Wiley MD [id number],S, H as been utilizing compression stockings without much improvement in her leg pain or swelling. Discussed possibility of doing venogram and/or venaseal. As she is agreeable, we will check venous dopplers and then refer her for further workup. She may also benefit from amlodipine reduced to 5mg in case it is contributing to the swelling. Fahad Wiley MD [id number],S, T he patient is using CPAP on a regular basis. The patient has been benefiting from therapy and should continue use. Fahad Wiley MD [id number],S, H er effort-related SOB persists and she continues using albuterol inhaler as needed. Fahad Wiley MD [id number],S, S ALYSSA ENCOURAGED TO STOP SMOKING; SMOKING CESSATION TECHNIQUES DISCUSSED. Fahad Wiley MD [id number],W, B lood pressure is elevated today. Continues on amlodipine. Advised routine home monitoring at least 2-3 times a week. We aim for a BP of 140/80 or lower. Fahad Wiley MD [id number],S, N o recurrence. Fahad Wiley MD [id number],S,F ollows rheumatology. Continues on Plaquenil. Fahad Wiley MD [id number],C,T he patient is using CPAP on a regular basis. The patient has been benefiting from therapy and should continue use. Fahad Wiley MD [id number],S,O n Gabapentin follows neurology. Fahad Wiley MD [id number],B,N o recurrence. Fahad Wiley MD [id number],S,C ontinues on Simvastatin. Fahad Wiley MD [id number],B,B lood pressure control is satisfactory. Continues on amlodipine. Fahad Wiley MD [id number],S,H er SOB persists and she continues using albuterol inhaler as needed. Based on the results of her PFT showing moderately obstructed airways and asthma, she will benefit from pulmonary evaluation. Fahad Wiley MD [id number],S, F olneymars rheumatology. Continues on Plaquenil. Fahad Wiley MD [id number],C, S he continues to have SOB with exertion. Her 6 minute walk test and stress test were normal. PFT results are pending. If PFTs are normal, we will send her to a assistant corporate secretary for further workup. For symptom relief until PFTs are finished, we will prescribe her an albuterol inhaler. Fahad Wiley MD [id number],S, T he patient is using CPAP on a regular basis. The patient has been benefiting from therapy and should continue use. Fahad Wiley MD [id number],S, H as been utilizing compression stockings. Last [...] of active hypodermic bleeding. Fahad Wiley MD [id number],S, O n Gabapentin follows neurology. Fahad Wiley MD [id number],S, N o recurrence. Fahad Wiley MD [id number],S, S ALYSSA ENCOURAGED TO STOP SMOKING; SMOKING CESSATION TECHNIQUES DISCUSSED. Fahad Wiley MD [id number],S, C ontinues on Simvastatin. Fahad Wiley MD [id number],C, E levated BP at 155/85 today. Continues on Amlodipine. Advised reduced sodium intake and routine monitoring of the blood pressure. We aim for less than 130/80. Fahad Wiley MD [id number],C, N o recurrence. Fahad Wiley MD [id number],C, T he patient is using CPAP on a regular basis. The patient has been benefiting from therapy and should continue use. Fahad Wiley MD [id number],C, E levated BP at 154/86 today. Continues on Amlodipine. Fahad Wiley MD [id number],C, H as been utilizing compression stockings. Last [...] of active hypodermic bleeding. Fahad Wiley MD [id number],C,S he has had worsening SOB, where she has to take breaks to regain her breath when walking. Likely multifactoral related to obesity, deconditionig, and sleep apnea. Will schedule a PFT with a 6 minute walk test and a stress test. Fahad Wiley MD [id number],C,T he patient is using CPAP on a regular basis. The patient has been benefiting from therapy and should continue use. Fahad Wiley MD [id number],Ita,C ontinues on Simvastatin. Fahad Wiley MD [id number],CP rior BP: 155/88 (06/06/2020). Continues on Amlodipine. Advised routine monitoring of the BP daily. Fahad Wiley MD [id number],C,S welling improved on Lasix and with compression stockings which she continues. Fahad Wiley MD Cardiology:The patie nt is using CPAP on a regular basis. The patient has been benefiting from therapy and should continue use. Elizabeth Ventimiglia [facility] Cardiology:cessation encouraged Elizabeth Ventimiglia [facility] Cardiology:with bila teral LE edema. L>R c ompression encouraged Elizabeth Ventimiglia [facility] Cardiology: T he following medications were removed from the medication list: Simvastatin 20 Mg Tablet (Simvastatin) ..... 1 tablet once a day Her updated medication list for this problem includes: Rosuvastatin 20 Mg Tablet (Rosuvastatin) [facility] Cardiology:BP uncont rolled in office on [...] (Aspirin) ..... 1 tablet once a day [facility] Cardiology:weight loss encourage d [facility] Cardiology:chronic m ost likely multifactorial in setting of COPD and diastolic dysfunction w ill get her echo from [facility] W ill check pBNP c onsider [...] (Aspirin) ..... 1 tablet once a day [facility] Cardiology:The patie nt is using CPAP on a regular basis. The patient has been benefiting from therapy and should continue use. [facility] Cardiology: H er updated medication list for this problem includes: Simvastatin 20 Mg Tablet (Simvastatin) ..... 1 tablet once a day [facility] Cardiology:BP above goal will increase losartan [...] 1 tablet once a day Elizabeth Burleson [facility] Cardiology:Patient h as persistent bilateral LE edema. Known venous insufficiency. Does not tolerate compression stockings H er weight is up since last visit will resume lasix. Will get echo for Viraj. check pBNP Elizabeth Burleson [facility] Cardiology Isidro Becker MD Cardiology:The Sylviee nt was reencouraged to stop smoking. Pt reports it to be same as before Isidro Bceker MD Cardiology:Her left leg is worse than [...] Dr. Becker for further intervention. Elizabeth Burleson [facility] Cardiology:Blood pre ssure 185/97 W ill increase losartan from 50 mg a day to 100 mg a day w ill plan RPM Fahad Wiley MD Cardiology: S ALYSSA ENCOURAGED TO STOP SMOKING; SMOKING CESSATION TECHNIQUES DISCUSSED. Suni Miranda Cardiology:lifestyle modificatio n encouraged. Elizabeth Burleson [facility] Cardiology:Blood pre ssure still not at [...] 1 tablet once a day Elizabeth Burleson [facility] Cardiology:She cristela nues to have pain [...] and diuretic at this time. Elizabethdebo Hortonagustin [facility] Cardiology: I n spite of being on 900mg of gabapentin, continues to be symptomatic with pain, numbness, and tingling. Follows Dr. Lino and he due to see her soon. Fahad Wiley MD Cardiology: [facility] rheumatology, Dr. Elder in [place]. Continues on Plaquenil. Fahad Wiley MD Cardiology: [...] normal, we will send her to a assistant corporate secretary for further workup. For symptom relief until [...] MD Cardiology:Will arrange home sle ep study. aFhad Wiley MD Cardiology:Rare epis odes of chest [...] Regadenoson 6 minute walk test DLCO - 38485 FRC - 43334 FVC - 06932 Venous Doppler Unila teral RLE Arterial Duplex [...] Fahad Wiley MD complet ed EKG Fahad Wiely MD complet ed EKG Fahad Wiley MD complet ed EKG Fahad Wiley MD complet ed EKG Fahad Wiley MD complet ed 6 minute walk test Fahad Wiley MD completed Spirometry Fahad Wiley MD complet ed FVC / MVV with bronchodilator - 27408 Fahad Wiley MD completed FRC - 56956 Fahad Wiley MD comple faustina SpO2 w/o 6min walk/titration Fahad Wiley MD completed SVC - 65344 Fahad Wiley MD comple faustina DLCO - 56592 Fahad Wiley MD compl eted EKG Fahad Wiley MD complet ed EKG Fahad Wiley MD complet ed EKG Fahad Wiley MD complet ed EKG Fahad Wiley MD complet ed EKG Fahad Wiley MD complet ed EKG Fahad Wiley MD complet ed EKG Fahad Wiley MD complet ed EKG Fahad Wiley MD complet ed FVC / MVV with bronchodilator - 27717 Fahad Wiley MD completed BLOOD COUNT HEMOGLOBIN Fahad Wiley MD completed FRC - 65362 Fahad Wiley MD comple faustina SpO2 w/o 6min walk/titration Fahad Wiley MD completed DLCO - 56713 Fahad Wiley MD compl eted EKG Fahad Wiley MD complet ed EKG Fahad Wiley MD complet ed Regadenoson, 4 units Fahad Wiley MD completed Cardiolite, 2 units Fahad Wiley MD completed SPECT Images Mane Johns MD complet ed Stress EKG Mane Johns MD completed EKG Fahad Wiley MD complet ed EKG Fahad Wiley MD complet ed
== END 2025-03-29 19:12 | disposition home or self-care (01) ==
PROVIDERS: Emergency Provider Student in an Organized Health Care Education/Training Program; PCP Internal Medicine
DX: I10 Essential (primary) hypertension (principal); I73.9 Peripheral vascular disease, unspecified; E78.5 Hyperlipidemia, unspecified; E66.01 Morbid (severe) obesity due to excess calories; Z68.42 Body mass index [BMI] 45.0-49.9, adult; J45.909 Unspecified asthma, uncomplicated; M06.09 Rheumatoid arthritis without rheumatoid factor, multiple sites; M19.90 Unspecified osteoarthritis, unspecified site; M85.80 Other specified disorders of bone density and structure, unspecified site; F41.9 Anxiety disorder, unspecified; F32.A Depression, unspecified; F17.210 Nicotine dependence, cigarettes, uncomplicated; Z90.710 Acquired absence of both cervix and uterus; Z90.49 Acquired absence of other specified parts of digestive tract; Z79.82 Long term (current) use of aspirin; Z79.899 Other long term (current) drug therapy; I44.0 Atrioventricular block, first degree; I51.7 Cardiomegaly; R94.31 Abnormal electrocardiogram [ECG] [EKG]
CPT/HCPCS: 36415; 70450; 71045; 80053; 83690; 84484; 85025; 93005; 99284; A9270